=== PATIENT | male | born 1945 | race American Indian/Alaskan Native ===

== ENCOUNTER 2022-06-08 17:18 | Inpatient (IN) | payer MEDICARE ==
[2022-06-08] MEDS ORDERED: ALBUTEROL 2.5 MG/3 ML NEBU IH PRN (17:35)
--- NOTE | 2022-06-08 17:35 | History and Physical Report ---
History of Present Illness Chief complaint: My foot hurts History of present illness: 76 YO Male with Vascular Dementia with Behavioral Disturbance, Cerebral Atherosclerosis, Schizophrenia, DM, HTN, PVD presents to ED for evaluation. Patient reports "my foot hurts". Patient states that he has experienced pain in his left foot as well as discoloration over the past 3 weeks with persistent and worsening symptoms over the same timeframe. Patient was seen and evaluated at his vascular surgeon's office and was found to have left lower extremity ischemia. [facility] Patient transported via private vehicle to [facility] for further care and evaluation of the aforementioned symptoms. The patient was seen and evaluated in the emergency department. All lab and image studies reviewed. Patient found to have left lower extremity ischemia. Patient initiated on heparin drip. Vascular surgery team consulted. Patient admitted to [facility] due to increased risk of worsening symptoms and for medical stabilization. Patient denies fever, chills, chest pain, palpitation productive cough, skin rash and recent contact, known exposure to COVID-19. No prior admission for review. All medication listed at time of admission as reconciled. Advanced care planning conducted in ED. Past History Past Medical History: diabetes, hypertension, PVD, other (See HPI) Past Surgical History: No surgical history, Other (Reviewed) Social history: single. denies: smoking, alcohol abuse, prescription drug abuse Family history: hypertension Medications and Allergies Allergies Allergy/AdvReac Type Severity Reaction Status Date / Time Penicillins Allergy Intermediate Rash Verified 02/07/22 23:25 Home Medications Medication Instructions Recorded Confirmed Last Taken Type Fluvoxamine Maleate [fluvoxaMINE 50 mg PO QHS 01/09/16 01/09/16 Unknown History Maleate] Loratadine (Nf) [Claritin (Nf)] 10 mg PO DAILY 01/09/16 01/09/16 Unknown History amLODIPine 5 mg PO DAILY 01/09/16 01/09/16 Unknown History carvediloL [Coreg] 3.125 mg PO BID 01/09/16 01/09/16 Unknown History donepeziL [Aricept] 10 mg PO QHS 01/09/16 01/09/16 Unknown History lisinopriL [Zestril TAB] 20 mg PO QDAY 01/09/16 01/09/16 Unknown History risperiDONE [RisperDAL] 4 mg PO QHS 01/09/16 01/09/16 Unknown History traZODone [Desyrel] 200 mg PO QHS 01/09/16 01/09/16 Unknown History Insulin Glargine [Lantus VIAL] 15 units SUB-Q QAMDIAB #1 units 01/12/16 Unknown Rx Insulin Glulisine [Apidra] 8 units SUB-Q AC #1 units 01/12/16 Unknown Rx Review of Systems Constitutional: no weight loss, no weight gain, no fever, no chills Ears, nose, mouth and throat: no ear pain, no tinnitis, no decreased hearing, no nose pain Respiratory: no cough, no cough with sputum, no hemoptysis, no shortness of breath Gastrointestinal: no abdominal pain, no nausea, no vomiting, no constipation, no change in bowel habits Genitourinary Male: no hematuria, no flank pain, no discharge, no urinary frequency, no urinary hesitancy Rectal: no pain, no incontinence, no bleeding Musculoskeletal: no neck stiffness, no neck pain, no leg numbness/tingling Integumentary: no rash, no pruritis, no redness, no sores, no wounds Neurological: no transient paralysis, no paralysis, no weakness, no parathesias, no tingling, no seizures, no syncope, no tremors Psychiatric: no anxiety, no change in sleep habits, no insomnia, no change in appetite Endocrine: no cold intolerance, no polydipsia, no nocturia, no excessive sweating Hematologic/Lymphatic: no easy bruising, no easy bleeding Allergic/Immunologic: no allergic rhinitis, no wheezing Exam - Constitutional Vitals: Temp Pulse Resp BP Pulse Ox 98.5 F 48 L 16 152/63 100 06/08/22 17:24 06/08/22 17:24 06/08/22 17:24 06/08/22 17:24 06/08/22 17:24 General appearance: Present: mild distress - EENT Eyes: Present: PERRL ENT: hearing intact, clear oral mucosa - Neck Neck: Present: supple, normal ROM - Respiratory Respiratory effort: normal Respiratory: bilateral: CTA - Cardiovascular Heart Sounds: Present: S1 & S2. Absent: rub, click - Extremities Extremity abnormal: cold, pulses diminished Peripheral Pulses: abnormal - Abdominal General gastrointestinal: Present: soft, non-tender, non-distended, normal bowel sounds Male genitourinary: Present: normal - Integumentary Integumentary: Present: clear, dry - Musculoskeletal Musculoskeletal: gait normal, strength equal bilaterally - Psychiatric Psychiatric: cooperative - Neurologic Neurologic: CNII-XII intact, moves all extremities Results - Labs CBC & Chem 7: 06/08/22 17:59 06/08/22 17:59 Assessment and Plan - Patient Problems (1) Ischemia of left lower extremity Status: Acute Plan to address problem: CT angio with runoff, vascular surgery consulted, therapeutic anticoagulation, supportive care, serial abdominal exam, further care and evaluation as per vascular surgery team. (2) Diabetes Status: Acute Plan to address problem: Consistent carbohydrate diet, Accu-Chek, insulin protocol, hypoglycemia protocol. (3) Hypertension Status: Acute Qualifiers: Hypertension type: primary hypertension Qualified Code(s): I10 - Essential (primary) hypertension Plan to address problem: Monitor blood pressure every shift, continue medical management. (4) Schizophrenia Status: Acute Qualifiers: Schizophrenia type: unspecified Qualified Code(s): F20.9 - Schizophrenia, unspecified Plan to address problem: Continue medical management, no acute exacerbation at this time, (5) Vascular dementia with behavioral disturbance Status: Acute Plan to address problem: Verbal prompting, verbal redirection, benzodiazepine therapy as clinically indicated. (6) Cerebral atherosclerosis Status: Acute Plan to address problem: Risk factor reduction, supportive care, antiplatelet therapy as clinically indicated. (7) DVT prophylaxis Status: Acute Plan to address problem: SCD bilateral lower extremities while in bed (8) Advance care planning Status: Acute Plan to address problem: Disease education done, care plan discussed, diagnoses discussed, prognosis discussed, patient is full code. Patient and daughter acknowledged understanding and agreement with care plan, +30 minutes. (9) Preventative health care Status: Acute Plan to address problem: Patient daughter counseled regarding home safety, risk factor reduction, outpatient follow-up with primary care physician for all age and risk factor appropriate screening test. +30 minutes.
[2022-06-08] MEDS ORDERED: HEPARIN 10,000 UNITS/10 ML VIAL IV ONE (17:49)
--- NOTE | 2022-06-08 17:57 | Emergency Department Report ---
ED Extremity Problem HPI - General Chief complaint: Extremity Problem,Nontraumatic Stated complaint: Limb ischemia Time Seen by Provider: 06/08/22 17:48 Source: patient Mode of arrival: Ambulatory Limitations: No Limitations - History of Present Illness Initial comments: Patient is a 76-year-old male that presents from emergency room for left foot pain and discoloration. Patient's pain discharge has been going on for approximately 3 weeks. Patient states that his great toe pain has been going on for 4 months. Patient went to his vascular surgeon's office and was sent here for evaluation. Patient presented to the emergency room with the outpatient vascular surgery's note and the recommendations from the vascular surgery office. Patient states the pain is a moderate pain. Patient denies chest pain. Patient denies shortness of breath. Patient denies other complaints. Patient denies recent travel. Patient denies recent international travel. Patient denies exposure to the novel coronavirus. Patient denies sick contacts. Patient denies fever and chills. Patient denies cough. Patient denies diarrhea. Patient denies coming in contact with anybody with symptoms of the novel coronavirus. MD Complaint: extremity pain, cold extremity Severity scale (0 -10): 8 - Related Data Home Medications Medication Instructions Recorded Confirmed Last Taken Fluvoxamine Maleate [fluvoxaMINE 50 mg PO QHS 01/09/16 01/09/16 Unknown Maleate] Loratadine (Nf) [Claritin (Nf)] 10 mg PO DAILY 01/09/16 01/09/16 Unknown amLODIPine 5 mg PO DAILY 01/09/16 01/09/16 Unknown carvediloL [Coreg] 3.125 mg PO BID 01/09/16 01/09/16 Unknown donepeziL [Aricept] 10 mg PO QHS 01/09/16 01/09/16 Unknown lisinopriL [Zestril TAB] 20 mg PO QDAY 01/09/16 01/09/16 Unknown risperiDONE [RisperDAL] 4 mg PO QHS 01/09/16 01/09/16 Unknown traZODone [Desyrel] 200 mg PO QHS 01/09/16 01/09/16 Unknown Previous Rx's Medication Instructions Recorded Last Taken Type Insulin Glargine [Lantus VIAL] 15 units SUB-Q QAMDIAB #1 units 01/12/16 Unknown Rx Insulin Glulisine [Apidra] 8 units SUB-Q AC #1 units 01/12/16 Unknown Rx Allergies Allergy/AdvReac Type Severity Reaction Status Date / Time Penicillins Allergy Intermediate Rash Verified 02/07/22 23:25 ED Review of Systems ROS: Stated complaint: DR OREILLY Other details as noted in HPI Constitutional: denies: chills, fever Eyes: denies: eye pain, eye discharge, vision change ENT: denies: ear pain, throat pain Respiratory: denies: cough, shortness of breath, wheezing Cardiovascular: denies: chest pain, palpitations Endocrine: no symptoms reported Gastrointestinal: denies: abdominal pain, nausea, diarrhea Genitourinary: denies: urgency, dysuria Musculoskeletal: as per HPI. denies: back pain, joint swelling, arthralgia Skin: denies: rash, lesions Neurological: denies: headache, weakness, paresthesias Psychiatric: denies: anxiety, depression Hematological/Lymphatic: denies: easy bleeding, easy bruising ED Past Medical Hx - Past Medical History Previous Medical History?: Yes Hx Hypertension: Yes Hx Heart Attack/AMI: No Hx Congestive Heart Failure: No Hx Diabetes: Yes Hx Deep Vein Thrombosis: No Hx Pulmonary Embolism: No Hx Liver Disease: No Hx Seizures: No Hx Psychiatric Treatment: Yes (schizophrenia) Hx Asthma: No Hx COPD: No Hx Tuberculosis: No Hx Dementia: Yes Hx HIV: No - Surgical History Past Surgical History?: No Hx Coronary Stent: No Hx Pacemaker: No Hx Internal Defibrillator: No - Family History Family history: no significant - Social History Smoking Status: Former Smoker Substance Use Type: None - Medications Home Medications: Home Medications Medication Instructions Recorded Confirmed Last Taken Type Fluvoxamine Maleate [fluvoxaMINE 50 mg PO QHS 01/09/16 01/09/16 Unknown History Maleate] Loratadine (Nf) [Claritin (Nf)] 10 mg PO DAILY 01/09/16 01/09/16 Unknown History amLODIPine 5 mg PO DAILY 01/09/16 01/09/16 Unknown History carvediloL [Coreg] 3.125 mg PO BID 01/09/16 01/09/16 Unknown History donepeziL [Aricept] 10 mg PO QHS 01/09/16 01/09/16 Unknown History lisinopriL [Zestril TAB] 20 mg PO QDAY 01/09/16 01/09/16 Unknown History risperiDONE [RisperDAL] 4 mg PO QHS 01/09/16 01/09/16 Unknown History traZODone [Desyrel] 200 mg PO QHS 01/09/16 01/09/16 Unknown History Insulin Glargine [Lantus VIAL] 15 units SUB-Q QAMDIAB #1 units 01/12/16 Unknown Rx Insulin Glulisine [Apidra] 8 units SUB-Q AC #1 units 01/12/16 Unknown Rx ED Physical Exam - General Limitations: No Limitations General appearance: alert, in no apparent distress - Head Head exam: Present: atraumatic, normocephalic - Eye Eye exam: Present: normal appearance - ENT ENT exam: Present: mucous membranes moist - Neck Neck exam: Present: normal inspection - Respiratory Respiratory exam: Present: normal lung sounds bilaterally. Absent: respiratory distress - Cardiovascular Cardiovascular Exam: Present: regular rate, normal rhythm. Absent: systolic murmur, diastolic murmur, rubs, gallop - GI/Abdominal GI/Abdominal exam: Present: soft, normal bowel sounds. Absent: distended, tenderness, guarding - Rectal Rectal exam: Present: deferred - Extremities Exam Extremities exam: Present: full ROM, pedal edema, calf tenderness, other (Left lower extremity is cool compared to the right.). Absent: normal capillary refill - Back Exam Back exam: Present: normal inspection - Neurological Exam Neurological exam: Present: alert, oriented X3 - Psychiatric Psychiatric exam: Present: normal affect, normal mood - Skin Skin exam: Present: warm, dry, intact, normal color. Absent: rash ED Course Vital Signs 06/08/22 06/08/22 17:24 17:52 Temperature 98.5 F 98.3 F Pulse Rate 48 L 46 L Respiratory 16 18 Rate Blood Pressure 168/70 Blood Pressure 152/63 168/70 [Left] O2 Sat by Pulse 100 100 Oximetry - Reevaluation(s) Reevaluation #1: Patient be started on a heparin drip once the labs are done. I instructed the nurse. Patient agrees with plan of care. 06/08/22 18:10 Reevaluation #2: Patient denies any changes in pain. 06/08/22 19:50 Reevaluation #3: I discussed all results with patient. I discussed plan of care with patient. Patient agrees with plan of care and admission. Patient to be admitted to the hospitalist service. 06/08/22 19:17 - Consultations Consultation #1: I discussed the case with Dr. Escamilla, vascular surgery. Dr. Escamilla states that the patient has a complete occlusion of the left lower extremity. Dr. Escamilla states he did ultrasound in the office. Dr. Escamilla states he wants the patient be placed on a heparin drip with a bolus. Dr. Escamilla states that he would like to have a CTA of the abdomen with runoff done. Dr. Escamilla states he wants the patient admitted to the hospitalist service and a consult placed for them. 06/08/22 17:54 Consultation #2: Hospitalist consulted for admission. Hospitalist to admit patient. 06/08/22 19:19 ED Medical Decision Making - Lab Data Result diagrams: 06/08/22 17:59 06/08/22 17:59 - Radiology Data Radiology results: report reviewed CTA ABDOMEN, PELVIS, AND LOWER EXTREMITIES INDICATION / CLINICAL INFORMATION: left limb ischemia and pad. cluadication. TECHNIQUE: Axial CT images were obtained through the abdomen, pelvis and lower extremities after injection of 100 cc Omni 350 IV contrast. 3 plane MIP / 3D reconstructions were produced. All CT scans at this location are performed using CT dose reduction for ALARA by means of automated exposure control. COMPARISON: None available. FINDINGS: CTA ABDOMEN: Abdominal Aorta: Tortuous with moderate vascular calcifications. Celiac Artery: No significant abnormality. Superior Mesenteric Artery: No significant abnormality. Right Renal Artery: No significant abnormality. Left Renal Artery: No significant abnormality. Inferior Mesenteric Artery: No significant abnormality. CTA PELVIS: RIGHT: - Common Iliac Artery: No significant abnormality. - Internal Iliac Artery: No significant abnormality. - External Iliac Artery: No significant abnormality. LEFT: - Common Iliac Artery: No significant abnormality. - Internal Iliac Artery: No significant abnormality. - External Iliac Artery: No significant abnormality. CTA LOWER EXTREMITIES: RIGHT LOWER EXTREMITY: - Common Femoral Artery: No significant abnormality. - Superficial Femoral Artery: No significant abnormality. - Profunda Femoral Artery: No significant abnormality. - Popliteal Artery: No significant abnormality. - Anterior Tibial Artery: Occluded proximal and mid calf with distal reconstitution via collaterals - Tibioperoneal Trunk: No significant abnormality. - Posterior Tibial Artery: Occluded - Peroneal Artery: No significant abnormality. - Ankle runoff: 2 vessel. LEFT LOWER EXTREMITY: - Common Femoral Artery: No significant abnormality. - Superficial Femoral Artery: Occluded/thrombosed within the mid and distal portion of the femoral artery. - Profunda Femoral Artery: No significant abnormality. - Popliteal Artery: Occluded/thrombosed - Anterior Tibial Artery: Occluded proximal and middle third of the foreleg with distal reconstitution via collaterals - Tibioperoneal Trunk: Occluded - Posterior Tibial Artery: Occluded throughout its course - Peroneal Artery: No significant abnormality. - Ankle runoff: 2 vessel. NONTARGET STRUCTURES:. Solid 5 mm right upper lobe pulmonary nodule series 2 image 1 CHEST: Partially calcified bilateral pleural plaques ABDOMEN:Nonobstructing 8 mm intrarenal stone. PELVIS:No significant abnormality. LOWER EXTREMITIES:No significant abnormality. SKELETAL: No significant abnormality. ADDITIONAL FINDINGS: None. IMPRESSION: 1. Occluded left femoral, popliteal, tibiofemoral trunk likely from embolic dis ease. Two-vessel runoffs bilaterally 2. 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 Single incidental pulmonary nodule(s) in the right upper lobe measuring 5 mm with solid characteristics. Recommendation according to Fleischner Society 2017 Guidelines: Low Risk Patient: No routine follow-up; High Risk Patient: Optional CT at 12 months. 4. Right nephrolithiasis. - Medical Decision Making Patient is a 76-year-old male that presents emergency room from his vascular surgeon's office for evaluation and admission. Patient was sent here for heparin drip admission to our internal medicine team. I discussed with the vascular surgeon early in the patient's ER stay. Dr. Werner, vascular surgery recommends heparin drip with bolus and a CTA of the abdomen with runoff. Labs done labs essentially markable except for acute renal failure and hyperkalemia. Patient had a CT angio of the abdomen with runoff showed multiple occlusions in the lower extremity. Patient started on a heparin drip early. Patient also given heparin bolus. Heparin started per heparin protocol. Patient admitted to the hospitalist service for further evaluation treatment. Critical care time documented due to the multiple reassessments, prolonged time at the bedside, interpretation of diagnostics and labs and discussion with consultants and admitting team.. - Differential Diagnosis Arterial occlusion, limb ischemia, foot pain, leg pain. Critical Care Time: Yes Critical care time in (mins) excluding proc time.: 35 Critical care attestation.: If time is entered above; I have spent that time in minutes in the direct care of this critically ill patient, excluding procedure time. Critical Care Time: 35 minutes ED Disposition Clinical Impression: Ischemia of left lower extremity, Hyperkalemia, Arterial occlusion, lower extremity Acute renal failure Qualifiers: Acute renal failure type: unspecified Qualified Code(s): N17.9 - Acute kidney failure, unspecified Foot pain Qualifiers: Laterality: left Qualified Code(s): M79.672 - Pain in left foot Disposition: 09 ADMITTED INPATIENT Is pt being admited?: Yes Does the pt Need Aspirin: No Condition: Critical Time of Disposition: 19:19
[2022-06-08 18:09] LABS: Hematocrit 42.5 % (35.5-45.6); Hemoglobin 14.3 gm/dl (11.8-15.2); Mean Corpuscular HGB Conc 34 % (32-34); Mean Corpuscular Volume 91 fl (84-94); Platelet Count 208 K/mm3 (140-440); Red Blood Count 4.66 M/mm3 (3.65-5.03); Red Cell Distribution Width 14.3 % (13.2-15.2)
[2022-06-08 18:32] LABS: Albumin 4.5 g/dL (3.9-5); Calcium 9.9 mg/dL (8.4-10.2)
[2022-06-08] MEDS: HEPARIN/ 0.45% NACL DRIP 25,000 UNIT/500 ML BAG IV SCH (18:36)
[2022-06-08 18:41] LABS: INR 1.02 (0.87-1.13)
[2022-06-08 18:42] LABS: Partial Thromboplastin Time 35.1 Sec. (24.2-36.6)
--- NOTE | 2022-06-08 19:53 | Cat Scan Report ---
CTA ABDOMEN, PELVIS, AND LOWER EXTREMITIES INDICATION / CLINICAL INFORMATION: left limb ischemia and pad. cluadication. TECHNIQUE: Axial CT images were obtained through the abdomen, pelvis and lower extremities after injection of 10 0 cc Omni 350 IV contrast. 3 plane MIP / 3D reconstructions were produced. All CT scans at this [facility] ion are performed using CT dose reduction for ALARA by means of automated exposure control. COMPARISON: None available. FINDINGS: CTA ABDOMEN: Abdominal Aorta: Tortuous with moderate vascular calcifications. Celiac Artery: No significant abnormality. Superior Mesenteric Artery: No significant abnormality. Right Renal Artery: No significant abnormality. Left Renal Artery: No significant abnormality. Inferior Mesenteric Artery: No significant abnormality. CTA PELVIS: RIGHT: - Common Iliac Artery: No significant abnormality. - Internal Iliac Artery: No significant abnormality. - External Iliac Artery: No significant abnormality. LEFT: - Common Iliac Artery: No significant abnormality. - Internal Iliac Artery: No significant abnormality. - External Iliac Artery: No significant abnormality. CTA LOWER EXTREMITIES: RIGHT LOWER EXTREMITY: - Common Femoral Artery: No significant abnormality. - Superficial Femoral Artery: No significant abnormality. - Profunda Femoral Artery: No significant abnormality. - Popliteal Artery: No significant abnormality. - Anterior Tibial Artery: Occluded proximal and mid calf with distal reconstitution via collaterals - Tibioperoneal Trunk: No significant abnormality. - Posterior Tibial Artery: Occluded - Peroneal Artery: No significant abnormality. - Ankle runoff: 2 vessel. LEFT LOWER EXTREMITY: - Common Femoral Artery: No significant abnormality. - Superficial Femoral Artery: Occluded/thrombosed within the mid and distal portion of the femoral ar chauncey. - Profunda Femoral Artery: No significant abnormality. - Popliteal Artery: Occluded/thrombosed - Anterior Tibial Artery: Occluded proximal and middle third of the foreleg with distal reconstitutio n via collaterals - Tibioperoneal Trunk: Occluded - Posterior Tibial Artery: Occluded throughout its course - Peroneal Artery: No significant abnormality. - Ankle runoff: 2 vessel. NONTARGET STRUCTURES:. Solid 5 mm right upper lobe pulmonary nodule series 2 image 1 CHEST: Partially calcified bilateral pleural plaques ABDOMEN:Nonobstructing 8 mm intrarenal stone. PELVIS:No significant abnormality. LOWER EXTREMITIES:No significant abnormality. SKELETAL: No significant abnormality. ADDITIONAL FINDINGS: None. IMPRESSION: 1. Occluded left femoral, popliteal, tibiofemoral trunk likely from embolic disease. Two-vessel runof fs bilaterally 2. 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 Single incidental pulmonary nodule(s) in the right upper lobe measuring 5 mm with solid characteri stics. Recommendation according to Fleischner Society 2017 Guidelines: Low Risk Patient: No routine f ollow-up; High Risk Patient: Optional CT at 12 months. 4. Right nephrolithiasis. Signer Name: Tomer Kent MD Signed: 06/08/2022 7:49 PM Workstation Name: [id number]
[2022-06-08] MEDS: risperiDONE 1 MG TAB PO SCH (22:00)
[2022-06-08] MEDS: DONEPEZIL 10 MG TAB PO SCH (22:00)
[2022-06-08] MEDS: traZODone 100 MG TAB PO SCH (22:00)
[2022-06-08] MEDS ORDERED: RISPERIDONE 4 MG PO SCH (22:00)
[2022-06-08] MEDS ORDERED: FLUVOXAMINE MALEATE 25 MG PO SCH (22:00)
[2022-06-08] MEDS: carvediloL 3.125 MG TAB PO SCH (22:00)
[2022-06-09 02:39] LABS: Eosinophils # (Auto) 0.1 K/mm3 (0.0-0.4); Eosinophils % (Auto) 1.7 % (0.0-4.3); Hematocrit 43.2 % (35.5-45.6); Hemoglobin 14.1 gm/dl (11.8-15.2); Lymphocytes # (Auto) 1.7 K/mm3 (1.2-5.4); Lymphocytes % (Auto) 38.3 % (13.4-35.0); Mean Corpuscular HGB Conc 33 % (32-34); Mean Corpuscular Volume 92 fl (84-94); Monocytes # (Auto) 0.4 K/mm3 (0.0-0.8); Monocytes % (Auto) 9.9 % (0.0-7.3); Platelet Count 193 K/mm3 (140-440); Red Cell Distribution Width 14.7 % (13.2-15.2)
[2022-06-09 02:56] LABS: BUN/Creatinine Ratio 19; Blood Urea Nitrogen 25 mg/dL (9-20); Calcium 9.6 mg/dL (8.4-10.2); Hemolysis Index 3
[2022-06-09] MEDS ORDERED: HEPARIN 10,000 UNITS/10 ML VIAL IV PRN (08:32)
[2022-06-09] MEDS ORDERED: NON-FORMULARY EACH (Loratadine (Nf) 10 MG Tablet) PO SCH (10:00)
--- NOTE | 2022-06-09 10:11 | Consultation ---
History of Present Illness - Reason for Consult Consult date: 06/09/22 PVD with arterial occlusion - History of Present Illness Patient with a history of 3 weeks of leg pain, decreased motor and sensation on the left who ultimately presented to outpatient clinic with the above findings. Ultrasound was performed in the outpatient setting and the patient was noted to have occlusion of his SFA and the proximal thigh. Patient was sent to the hospital emergency department for admission and initiation of anticoagulation. Patient ambulates at home. Patient states that his symptoms are the same today as on presentation. Patient's left leg is warm to mid to distal calf and slightly cool compared to the opposite side on distal calf and foot. Past History Past Medical History: diabetes, hypertension, PVD, other (See HPI) Past Surgical History: No surgical history, Other (Reviewed) Social history: single. denies: smoking, alcohol abuse, prescription drug abuse Family history: hypertension Medications and Allergies Allergies Allergy/AdvReac Type Severity Reaction Status Date / Time Penicillins Allergy Intermediate Rash Verified 02/07/22 23:25 Home Medications Medication Instructions Recorded Confirmed Last Taken Type Fluvoxamine Maleate [fluvoxaMINE 50 mg PO QHS 01/09/16 01/09/16 Unknown History Maleate] Loratadine (Nf) [Claritin (Nf)] 10 mg PO DAILY 01/09/16 01/09/16 Unknown History amLODIPine 5 mg PO DAILY 01/09/16 01/09/16 Unknown History carvediloL [Coreg] 3.125 mg PO BID 01/09/16 01/09/16 Unknown History donepeziL [Aricept] 10 mg PO QHS 01/09/16 01/09/16 Unknown History lisinopriL [Zestril TAB] 20 mg PO QDAY 01/09/16 01/09/16 Unknown History risperiDONE [RisperDAL] 4 mg PO QHS 01/09/16 01/09/16 Unknown History traZODone [Desyrel] 200 mg PO QHS 01/09/16 01/09/16 Unknown History Insulin Glargine [Lantus VIAL] 15 units SUB-Q QAMDIAB #1 units 01/12/16 Unknown Rx Insulin Glulisine [Apidra] 8 units SUB-Q AC #1 units 01/12/16 Unknown Rx Active Meds: Active Medications Acetaminophen (Acetaminophen 325 Mg Tab) 650 mg PO Q6H PRN PRN Reason: Pain MILD(1-3)/Fever >100.5/PACHECO Albuterol (Albuterol 2.5 Mg/3 Ml Nebu) 2.5 mg IH Q3HRT PRN PRN Reason: Shortness Of Breath Amlodipine Besylate (Amlodipine 5 Mg Tab) 5 mg PO DAILY [facility] Carvedilol (Carvedilol 3.125 Mg Tab) 3.125 mg PO BID [facility] Last Admin: 06/08/22 22:00 Dose: 3.125 mg Cetirizine HCl (Cetirizine 10 Mg Tab) 10 mg PO DAILY [facility] Donepezil HCl (Donepezil 10 Mg Tab) 10 mg PO QHS [facility] Last Admin: 06/08/22 22:00 Dose: 10 mg Heparin Sodium (Porcine) (Heparin 10,000 Units/10 Ml Vial) 2,900 unit 40 unit/kg (2900 unit) IV Q6H PRN PRN Reason: Anti-Xa Assay < 0.1 units/ml Hydromorphone HCl (Hydromorphone 0.5 Mg/0.5 Ml Inj) 0.5 mg IV Q6H PRN PRN Reason: Pain , Severe (7-10) Sodium Chloride (Nacl 0.9% 1000 Ml) 1,000 mls @ 42 mls/hr IV DIRECT [facility] Heparin Sodium/Sodium Chloride (Heparin/ 0.45% Nacl-25,000 Unit/500 Ml) 25,000 unit in 500 mls @ 21 mls/hr IV TITR [facility]; Protocol Last Titration: 06/09/22 05:57 Dose: 1,200 units/hr, 24 mls/hr Lisinopril (Lisinopril 20 Mg Tab) 20 mg PO QDAY [facility] Miscellaneous Medication (Fluvoxamine Maleate [Fluvoxamine Maleate]) 50 mg PO QHS [facility] Last Admin: 06/09/22 06:16 Dose: Not Given Oxycodone/Acetaminophen (Oxycodone /Acetaminophen 5-325mg Tab) 1 tab PO Q6H PRN PRN Reason: Pain, Moderate (4-6) Risperidone (Risperidone 1 Mg Tab) 4 mg PO QHS [facility] Last Admin: 06/08/22 22:00 Dose: 4 mg Sodium Chloride (Sodium Chloride 0.9% 10 Ml Flush Syringe) 10 ml IV BID [facility] Last Admin: 06/09/22 06:17 Dose: 10 ml Sodium Chloride (Sodium Chloride 0.9% 10 Ml Flush Syringe) 10 ml IV PRN PRN PRN Reason: LINE FLUSH Trazodone HCl (Trazodone 100 Mg Tab) 200 mg PO QHS [facility] Last Admin: 06/08/22 22:00 Dose: 200 mg Review of Systems All systems: negative Exam - Constitutional Vitals: Temp Pulse Resp BP Pulse Ox 98.3 F 42 L 16 145/79 99 06/08/22 17:52 06/09/22 07:11 06/09/22 07:11 06/09/22 07:11 06/09/22 07:11 General appearance: Present: no acute distress - EENT Eyes: Present: EOM intact ENT: hearing intact - Neck Neck: Present: supple - Respiratory Respiratory effort: normal - Extremities Extremity abnormal: pulses diminished (Nonpalpable left pedal pulses) - Abdominal General gastrointestinal: Present: deferred - Rectal Rectal Exam: deferred - Psychiatric Psychiatric: cooperative Results - Labs CBC & Chem 7: 06/09/22 02:16 06/09/22 02:16 Labs: Abnormal lab results 06/08/22 06/08/22 06/09/22 Range/Units 17:59 17:59 00:37 WBC 4.3 L (4.5-11.0) K/mm3 Lymph % (Auto) (13.4-35.0) % [place] % (Auto) (0.0-7.3) % Heparin Anti-Xa Level 0.10 L (0.3-0.7) U.I./ml Potassium 5.1 H (3.6-5.0) mmol/L BUN 29 H (9-20) mg/dL Creatinine 1.6 H (0.8-1.3) mg/dL Glucose 159 H (75-100) mg/dL 06/09/22 06/09/22 Range/Units 02:16 02:16 WBC 4.4 L (4.5-11.0) K/mm3 Lymph % (Auto) 38.3 H (13.4-35.0) % [place] % (Auto) 9.9 H (0.0-7.3) % Heparin Anti-Xa Level (0.3-0.7) U.I./ml Potassium (3.6-5.0) mmol/L BUN 25 H (9-20) mg/dL Creatinine (0.8-1.3) mg/dL Glucose 135 H (75-100) mg/dL - Imaging and Cardiology CT scan - abdomen: image reviewed (Runoff) CT scan - pelvis: image reviewed Assessment and Plan Patient with subacute occlusion of his mid to distal SFA. There is reconstitution and collateral flow below the knee. The peroneal appears to be intact in the mid calf and distally. On the right, the patient has peroneal dominant flow as well. The patient will need to continue on heparin. We will plan on revascularization procedure likely on Saturday.
[2022-06-09] MEDS: LISINOPRIL 20 MG TAB PO SCH (10:57)
[2022-06-09] MEDS: amLODIPine 5 MG TAB PO SCH (10:57)
[2022-06-09] MEDS: carvediloL 3.125 MG TAB PO SCH (10:58)
[2022-06-09] MEDS: CETIRIZINE 10 MG TAB PO SCH (10:58)
[2022-06-09 11:02] LABS: INR 1.05 (0.87-1.13)
[2022-06-09 11:26] LABS: Partial Thromboplastin Time 138.6 Sec. (24.2-36.6)
--- NOTE | 2022-06-09 11:44 | Progress Note ---
<VIKKI NGUYEN - Last Filed: 06/09/22 16:37> Assessment and Plan Assessment and plan: This is a 77-year-old male with known past medical history of vascular dementia with behavioral disturbance, schizophrenia, cerebral atherosclerosis, DM, HTN, and PVD admitted for LLE ischemia Hospital Course to Date: 06/09: Remains on heaprin gtt per protocol. Vascular Surgery recommendations noted, plan for possible revascularization procedure likely on Saturday. Patient also noted with SB, HR in the 30s. Home BB held, cardiology also consulted for further eval and clearance for possible vascular procedure. Assessment and Plan #Peripheral Vascular Disease(PVD) #Ischemia of Left Lower Extremity #Subacute Occlusion of SFA - Presented from from vascular surgery's office due to [id number] leg pain with discoloration - CTA reveals occluded left femoral, popliteal, tibiofemoral trunk likely from embolic disease. See report for full details - Heaprin gtt was initiated per protocol - Vascular Surgery consulted, appreciated recommendations - Plan for possible revascularization procedure likely on Saturday - Continue vascular exam per protocol #Bradycardia #Hypertension - SB, HR in the 30s on the monitor this am, BP stable - Home antihypertensive resumed. Will hold BB for now - Cardiology consulted - Continue blood pressure monitor per protocol - Maintain MAP SBP less than 160 #Single Pulmonary Nodule - Noted on CTA, single incidental pulmonary nodule(s) in the right upper lobe measuring 5 mm with solid characteristics. - Follow up outpatient for further eval #Type 2 Diabetes Mellitus - Consistent carbohydrate diet - BG check and SSI ACHS - Avoid hypoglcemia #Vascular Dementia with Behavioral Disturbance #Schizophrenia - Currently calm and appropriate - Continue medical management, home meds resumed - Verbal prompting, verbal redirection - Avoid benzodiazepine to reduce the possibility of delirium - Maintenance of sleep-wake cycle #Cerebral Atherosclerosis - Risk factor reduction, supportive care, antiplatelet therapy as clinically indicated. #GI/DVT Prophylaxis - PPI- Pepcid - Heparin gtt - SCD bilateral lower extremities while in bed The high probability of a clinically significant, sudden or life threatening deterioration of the [multiple] system(s) required my full and direct attention, intervention and personal management. The aggregate critical care time was [60] minutes. This time is in addition to time spent performing reported procedures but includes the following: [x] Data Review and interpretation [x] Patient assessment and monitoring of vital signs [x] Documentation [x] Medication orders and management Disposition Plan: IMCU Total Time Spent with Patient (Minutes): 60 History Interval history: Patient seen and examined at the bedside. AAO with periods of disorientation, stable on RA. C/o LLE pain/soreness. Upon assessment, patient's left foot is audience coordinator l to touch, weak pedal pulse palpated. On heparin gtt per protocol. SB heart in the 30s noted on the monitor this am, BP stable. Hospitalist Physical - Constitutional Vitals: Temp Pulse Resp BP Pulse Ox 98.3 F 50 L 16 149/53 99 06/08/22 17:52 06/09/22 10:58 06/09/22 07:11 06/09/22 10:58 06/09/22 07:11 General appearance: Present: no acute distress, well-nourished - EENT Eyes: Present: PERRL, EOM intact ENT: hearing intact, poor dentition - Neck Neck: Present: normal ROM - Respiratory Respiratory effort: normal Respiratory: bilateral: diminished - Cardiovascular Rhythm: regular Heart Sounds: Present: S1 & S2 - Extremities Extremities: No edema, Full ROM, abnormal (LLE cool to touch with weak pedal pulse.) Extremity abnormal: pulses diminished (LLE) Peripheral Pulses: abnormal (Weak pedal pulse, LLE) - Abdominal General gastrointestinal: soft, non-distended, normal bowel sounds - Integumentary Integumentary: Present: clear, dry, decreased turgor - Psychiatric Psychiatric: appropriate mood/affect, cooperative - Neurologic Neurologic: CNII-XII intact, moves all extremities, other (Periods of d isorientation) - Allied Health Allied health notes reviewed: nursing Results - Labs CBC & Chem 7: 06/09/22 02:16 06/09/22 02:16 Labs: Laboratory Last Values WBC 4.4 K/mm3 (4.5-11.0) L 06/09/22 02:16 RBC 4.70 M/mm3 (3.65-5.03) 06/09/22 02:16 Hgb 14.1 gm/dl (11.8-15.2) 06/09/22 02:16 Hct 43.2 % (35.5-45.6) 06/09/22 02:16 MCV 92 fl (84-94) 06/09/22 02:16 MCH 30 pg (28-32) 06/09/22 02:16 MCHC 33 % (32-34) 06/09/22 02:16 RDW 14.7 % (13.2-15.2) 06/09/22 02:16 Plt Count 193 K/mm3 (140-440) 06/09/22 02:16 Lymph % (Auto) 38.3 % (13.4-35.0) H 06/09/22 02:16 [place] % (Auto) 9.9 % (0.0-7.3) H 06/09/22 02:16 Eos % (Auto) 1.7 % (0.0-4.3) 06/09/22 02:16 Baso % (Auto) 1.0 % (0.0-1.8) 06/09/22 02:16 Lymph # (Auto) 1.7 K/mm3 (1.2-5.4) 06/09/22 02:16 [place] # (Auto) 0.4 K/mm3 (0.0-0.8) 06/09/22 02:16 Eos # (Auto) 0.1 K/mm3 (0.0-0.4) 06/09/22 02:16 Baso # (Auto) 0.0 K/mm3 (0.0-0.1) 06/09/22 02:16 Seg Neutrophils % 49.1 % (40.0-70.0) 06/09/22 02:16 Seg Neutrophils # 2.2 K/mm3 (1.8-7.7) 06/09/22 02:16 PT 14.9 Sec. (12.2-14.9) 06/09/22 10:21 INR 1.05 (0.87-1.13) 06/09/22 10:21 APTT 138.6 Sec. (24.2-36.6) H* 06/09/22 10:21 Heparin Anti-Xa Level 0.80 U.I./ml (0.3-0.7) H 06/09/22 10:21 Sodium 139 mmol/L (137-145) 06/09/22 02:16 Potassium 4.4 mmol/L (3.6-5.0) 06/09/22 02:16 Chloride 101.7 mmol/L (98-107) 06/09/22 02:16 Carbon Dioxide 23 mmol/L (22-30) 06/09/22 02:16 Anion Gap 19 mmol/L 06/09/22 02:16 BUN 25 mg/dL (9-20) H 06/09/22 02:16 Creatinine 1.3 mg/dL (0.8-1.3) 06/09/22 02:16 Estimated GFR > 60 ml/min 06/09/22 02:16 BUN/Creatinine Ratio 19 % 06/09/22 02:16 Glucose 135 mg/dL (75-100) H 06/09/22 02:16 Calcium 9.6 mg/dL (8.4-10.2) 06/09/22 02:16 Total Bilirubin 0.40 mg/dL (0.1-1.2) 06/08/22 17:59 AST 17 units/L (5-40) 06/08/22 17:59 ALT 18 units/L (7-56) 06/08/22 17:59 Alkaline Phosphatase 77 units/L (35-129) 06/08/22 17:59 Total Protein 7.8 g/dL (6.3-8.2) 06/08/22 17:59 Albumin 4.5 g/dL (3.9-5) 06/08/22 17:59 Albumin/Globulin Ratio 1.4 % 06/08/22 17:59 Active Medications - Current Medications Current Medications: Generic Name Dose Route Start Last Admin Trade Name Freq PRN Reason Stop Dose Admin Acetaminophen 650 mg 06/08/22 17:35 Acetaminophen 325 Mg Tab PO Q6H PRN Pain MILD(1-3)/Fever >100.5/PACHECO Albuterol 2.5 mg 06/08/22 17:35 Albuterol 2.5 Mg/3 Ml Nebu IH Q3HRT PRN Shortness Of Breath Amlodipine Besylate 5 mg 06/09/22 10:00 06/09/22 10:57 Amlodipine 5 Mg Tab PO 5 mg DAILY [facility] Administration Carvedilol 3.125 mg 06/08/22 22:00 06/09/22 10:58 Carvedilol 3.125 Mg Tab PO 3.125 mg BID [facility] Administration Cetirizine HCl 10 mg 06/09/22 10:00 06/09/22 10:58 Cetirizine 10 Mg Tab PO 10 mg DAILY [facility] Administration Donepezil HCl 10 mg 06/08/22 22:00 06/08/22 22:00 Donepezil 10 Mg Tab PO 10 mg QHS [facility] Administration Heparin Sodium (Porcine) 2,900 unit 06/09/22 08:32 Heparin 10,000 Units/10 Ml Vial 40 unit/kg (2900 unit) IV Q6H PRN Anti-Xa Assay < 0.1 units/ml Hydromorphone HCl 0.5 mg 06/08/22 17:35 Hydromorphone 0.5 Mg/0.5 Ml Inj IV Q6H PRN Pain , Severe (7-10) Sodium Chloride 1,000 mls @ 42 mls/hr 06/08/22 17:45 Nacl 0.9% 1000 Ml IV DIRECT [facility] Heparin Sodium/Sodium Chloride 25,000 unit in 500 mls @ 21 mls/hr 06/08/22 18:00 06/09/22 05:57 Heparin/ 0.45% Nacl-25,000 Unit/500 Ml IV 1,200 units/hr TITR [facility] 24 mls/hr Titration Protocol 1,050 UNITS/HR Lisinopril 20 mg 06/09/22 10:00 06/09/22 10:57 Lisinopril 20 Mg Tab PO 20 mg QDAY [facility] Administration Miscellaneous Medication 50 mg 06/08/22 22:00 06/09/22 06:16 Fluvoxamine Maleate [Fluvoxamine Maleate] PO Not Given QHS [facility] Oxycodone/Acetaminophen 1 tab 06/08/22 17:35 Oxycodone /Acetaminophen 5-325mg Tab PO Q6H PRN Pain, Moderate (4-6) Risperidone 4 mg 06/08/22 22:00 06/08/22 22:00 Risperidone 1 Mg Tab PO 4 mg QHS [facility] Administration Sodium Chloride 10 ml 06/08/22 22:00 06/09/22 10:57 Sodium Chloride 0.9% 10 Ml Flush Syringe IV 10 ml BID [facility] Administration Sodium Chloride 10 ml 06/08/22 17:35 Sodium Chloride 0.9% 10 Ml Flush Syringe IV PRN PRN LINE FLUSH Trazodone HCl 200 mg 06/08/22 22:00 06/08/22 22:00 Trazodone 100 Mg Tab PO 200 mg QHS [facility] Administration <SANTOS COBURN - Last Filed: 06/10/22 07:11> Assessment and Plan Assessment and plan: I saw and evaluated the patient. I agree with the findings and the plan of care as documented in the Nurse Practitioner's~note, with the following corrections and additions. Hospitalist Physical - Constitutional Vitals: Temp Pulse Resp BP Pulse Ox 97.8 F 37 L 9 L 140/47 99 06/09/22 23:10 06/10/22 06:01 06/10/22 06:01 06/10/22 06:01 06/10/22 06:01 Results - Labs CBC & Chem 7: 06/10/22 05:18 06/10/22 05:18 Labs: Laboratory Last Values WBC 4.7 K/mm3 (4.5-11.0) 06/10/22 05:18 RBC 4.55 M/mm3 (3.65-5.03) 06/10/22 05:18 Hgb 13.6 gm/dl (11.8-15.2) 06/10/22 05:18 Hct 41.9 % (35.5-45.6) 06/10/22 05:18 MCV 92 fl (84-94) 06/10/22 05:18 MCH 30 pg (28-32) 06/10/22 05:18 MCHC 33 % (32-34) 06/10/22 05:18 RDW 14.5 % (13.2-15.2) 06/10/22 05:18 Plt Count 167 K/mm3 (140-440) 06/10/22 05:18 Lymph % (Auto) 38.3 % (13.4-35.0) H 06/09/22 02:16 [place] % (Auto) 9.9 % (0.0-7.3) H 06/09/22 02:16 Eos % (Auto) 1.7 % (0.0-4.3) 06/09/22 02:16 Baso % (Auto) 1.0 % (0.0-1.8) 06/09/22 02:16 Lymph # (Auto) 1.7 K/mm3 (1.2-5.4) 06/09/22 02:16 [place] # (Auto) 0.4 K/mm3 (0.0-0.8) 06/09/22 02:16 Eos # (Auto) 0.1 K/mm3 (0.0-0.4) 06/09/22 02:16 Baso # (Auto) 0.0 K/mm3 (0.0-0.1) 06/09/22 02:16 Seg Neutrophils % 49.1 % (40.0-70.0) 06/09/22 02:16 Seg Neutrophils # 2.2 K/mm3 (1.8-7.7) 06/09/22 02:16 PT 14.9 Sec. (12.2-14.9) 06/09/22 10:21 INR 1.05 (0.87-1.13) 06/09/22 10:21 APTT 138.6 Sec. (24.2-36.6) H* 06/09/22 10:21 Heparin Anti-Xa Level 0.82 U.I./ml (0.3-0.7) H 06/10/22 05:18 Sodium 134 mmol/L (137-145) L 06/10/22 05:18 Potassium 4.6 mmol/L (3.6-5.0) 06/10/22 05:18 Chloride 101.6 mmol/L (98-107) 06/10/22 05:18 Carbon Dioxide 24 mmol/L (22-30) 06/10/22 05:18 Anion Gap 13 mmol/L 06/10/22 05:18 BUN 25 mg/dL (9-20) H 06/10/22 05:18 Creatinine 1.4 mg/dL (0.8-1.3) H 06/10/22 05:18 Estimated GFR 59 ml/min 06/10/22 05:18 BUN/Creatinine Ratio 18 % 06/10/22 05:18 Glucose 227 mg/dL (75-100) H 06/10/22 05:18 POC Glucose 218 mg/dL (70-105) H 06/09/22 20:38 Calcium 9.0 mg/dL (8.4-10.2) 06/10/22 05:18 Total Bilirubin 0.40 mg/dL (0.1-1.2) 06/08/22 17:59 AST 17 units/L (5-40) 06/08/22 17:59 ALT 18 units/L (7-56) 06/08/22 17:59 Alkaline Phosphatase 77 units/L (35-129) 06/08/22 17:59 Total Protein 7.8 g/dL (6.3-8.2) 06/08/22 17:59 Albumin 4.5 g/dL (3.9-5) 06/08/22 17:59 Albumin/Globulin Ratio 1.4 % 06/08/22 17:59 Khalil/IV: Voiding Method Urinal Active Medications - Current Medications Current Medications: Generic Name Dose Route Start Last Admin Trade Name Freq PRN Reason Stop Dose Admin Acetaminophen 650 mg 06/08/22 17:35 06/09/22 20:46 Acetaminophen 325 Mg Tab PO 650 mg Q6H PRN Administration Pain MILD(1-3)/Fever >100.5/PACHECO Albuterol 2.5 mg 06/08/22 17:35 Albuterol 2.5 Mg/3 Ml Nebu IH Q3HRT PRN Shortness Of Breath Amlodipine Besylate 5 mg 06/09/22 10:00 06/09/22 10:57 Amlodipine 5 Mg Tab PO 5 mg DAILY [facility] Administration Cetirizine HCl 10 mg 06/09/22 10:00 06/09/22 10:58 Cetirizine 10 Mg Tab PO 10 mg DAILY [facility] Administration Dextrose 50 ml 06/09/22 12:27 Dextrose 50% In Water (25gm) 50 Ml Syringe IV Q30MIN PRN Hypoglycemia Protocol Donepezil HCl 10 mg 06/08/22 22:00 06/09/22 21:07 Donepezil 10 Mg Tab PO 10 mg QHS [facility] Administration Famotidine 20 mg 06/10/22 10:00 Famotidine 20 Mg Tab PO QDAY [facility] Heparin Sodium (Porcine) 2,900 unit 06/09/22 08:32 Heparin 10,000 Units/10 Ml Vial 40 unit/kg (2900 unit) IV Q6H PRN Anti-Xa Assay < 0.1 units/ml Hydromorphone HCl 0.5 mg 06/08/22 17:35 06/10/22 01:27 Hydromorphone 0.5 Mg/0.5 Ml Inj IV 0.5 mg Q6H PRN Administration Pain , Severe (7-10) Sodium Chloride 1,000 mls @ 42 mls/hr 06/08/22 17:45 Nacl 0.9% 1000 Ml IV DIRECT [facility] Heparin Sodium/Sodium Chloride 25,000 unit in 500 mls @ 21 mls/hr 06/08/22 18:00 06/09/22 23:28 Heparin/ 0.45% Nacl-25,000 Unit/500 Ml IV 1,050 units/hr TITR [facility] 21 mls/hr Titration Protocol 1,050 UNITS/HR Insulin Human Lispro 0 unit 06/09/22 16:30 06/09/22 21:07 Insulin Lispro 100 Unit/Ml SUB-Q 2 unit ACHS [facility] Administration Protocol Lisinopril 20 mg 06/09/22 10:00 06/09/22 10:57 Lisinopril 20 Mg Tab PO 20 mg QDAY [facility] Administration Miscellaneous Medication 50 mg 06/08/22 22:00 06/09/22 06:16 Fluvoxamine Maleate [Fluvoxamine Maleate] PO Not Given QHS [facility] Oxycodone/Acetaminophen 1 tab 06/08/22 17:35 06/09/22 23:48 Oxycodone /Acetaminophen 5-325mg Tab PO 1 tab Q6H PRN Administration Pain, Moderate (4-6) Risperidone 4 mg 06/08/22 22:00 06/09/22 21:07 Risperidone 1 Mg Tab PO 4 mg QHS [facility] Administration Sodium Chloride 10 ml 06/08/22 22:00 06/09/22 21:08 Sodium Chloride 0.9% 10 Ml Flush Syringe IV 10 ml BID [facility] Administration Sodium Chloride 10 ml 06/08/22 17:35 06/10/22 01:27 Sodium Chloride 0.9% 10 Ml Flush Syringe IV 10 ml PRN PRN Administration LINE FLUSH Trazodone HCl 200 mg 06/08/22 22:00 06/09/22 21:07 Trazodone 100 Mg Tab PO 200 mg QHS [facility] Administration
[2022-06-09] MEDS ORDERED: DEXTROSE 50% IN WATER (25GM) 50 ML SYRINGE IV PRN (12:27)
[2022-06-09] MEDS ORDERED: FAMOTIDINE 20 MG/2 ML INJ IV SCH (14:00)
[2022-06-09] MEDS: INSULIN LISPRO 100 UNIT/ML SUB-Q SCH ×2 (16:31→21:07)
[2022-06-09] MEDS: HEPARIN/ 0.45% NACL DRIP 25,000 UNIT/500 ML BAG IV SCH (20:39)
[2022-06-09] MEDS: ACETAMINOPHEN 325 MG TAB PO PRN (20:46)
[2022-06-09] MEDS: DONEPEZIL 10 MG TAB PO SCH (21:07)
[2022-06-09] MEDS: risperiDONE 1 MG TAB PO SCH (21:07)
[2022-06-09] MEDS: traZODone 100 MG TAB PO SCH (21:07)
[2022-06-09] MEDS: oxyCODONE /ACETAMINOPHEN 5-325MG TAB PO PRN (23:48)
[2022-06-10] MEDS: HYDROmorphone 0.5 MG/0.5 ML INJ IV PRN ×2 (01:27→15:19)
[2022-06-10 05:34] LABS: Hematocrit 41.9 % (35.5-45.6); Hemoglobin 13.6 gm/dl (11.8-15.2); Mean Corpuscular HGB Conc 33 % (32-34); Mean Corpuscular Volume 92 fl (84-94); Platelet Count 167 K/mm3 (140-440); Red Blood Count 4.55 M/mm3 (3.65-5.03); Red Cell Distribution Width 14.5 % (13.2-15.2)
[2022-06-10] MEDS: SODIUM CHLORIDE 0.9% 1000 ML 1,000 ML IV SCH ×2 (07:40→21:11)
[2022-06-10] MEDS: INSULIN LISPRO 100 UNIT/ML SUB-Q SCH ×4 (10:20→21:31)
[2022-06-10] MEDS: LISINOPRIL 20 MG TAB PO SCH (10:21)
[2022-06-10] MEDS: CETIRIZINE 10 MG TAB PO SCH (10:21)
[2022-06-10] MEDS: FAMOTIDINE 20 MG TAB PO SCH (10:21)
[2022-06-10] MEDS: amLODIPine 5 MG TAB PO SCH (10:21)
--- NOTE | 2022-06-10 10:22 | Progress Note ---
Assessment and Plan Patient will go down to [facility] for placement of EKOS catheter with possible other intervention tomorrow. N.p.o. after midnight Subjective Date of service: 06/10/22 Principal diagnosis: PVD with subacute arterial occlusion of his left SFA Interval history: Patient stable. He remains on heparin drip. That the patient's leg is warm to mid calf and then asymmetrically cooler than his right leg below this level. Patient can minimally move his ankle and feel touch. This is stable from his presentation. Objective - Constitutional Vitals: Vital Signs - 12hr 06/09/22 06/09/22 06/09/22 22:31 22:41 22:51 Temperature Pulse Rate 48 L 56 L 78 Pulse Rate [ From Monitor] Respiratory 16 20 20 Rate Respiratory Rate [Left Leg] Blood Pressure 138/58 138/58 138/58 O2 Sat by Pulse 95 97 96 Oximetry 06/09/22 06/09/22 06/09/22 23:00 23:10 23:11 Temperature 97.8 F Pulse Rate 47 L 46 L Pulse Rate [ From Monitor] Respiratory 17 15 Rate Respiratory Rate [Left Leg] Blood Pressure 130/55 130/55 O2 Sat by Pulse 95 95 Oximetry 06/09/22 06/09/22 06/09/22 23:15 23:20 23:21 Temperature Pulse Rate 48 L 47 L 48 L Pulse Rate [ 52 L From Monitor] Respiratory 20 16 16 Rate Respiratory Rate [Left Leg] Blood Pressure 151/63 130/55 O2 Sat by Pulse 100 95 95 Oximetry 06/09/22 06/09/22 06/09/22 23:31 23:41 23:48 Temperature Pulse Rate 49 L 61 Pulse Rate [ From Monitor] Respiratory 15 15 18 Rate Respiratory Rate [Left Leg] Blood Pressure 130/55 130/55 O2 Sat by Pulse 97 96 Oximetry 06/09/22 06/10/22 06/10/22 23:51 00:01 00:11 Temperature Pulse Rate 49 L 41 L 62 Pulse Rate [ From Monitor] Respiratory 11 L 14 16 Rate Respiratory Rate [Left Leg] Blood Pressure 130/55 103/38 103/38 O2 Sat by Pulse 98 99 100 Oximetry 06/10/22 06/10/22 06/10/22 00:21 00:31 00:41 Temperature Pulse Rate 40 L 40 L 46 L Pulse Rate [ From Monitor] Respiratory 13 14 11 L Rate Respiratory Rate [Left Leg] Blood Pressure 103/38 103/38 103/38 O2 Sat by Pulse 98 97 100 Oximetry 06/10/22 06/10/22 06/10/22 00:48 00:51 01:00 Temperature Pulse Rate 41 L 42 L Pulse Rate [ From Monitor] Respiratory 18 16 14 Rate Respiratory Rate [Left Leg] Blood Pressure 103/38 112/49 O2 Sat by Pulse 97 96 Oximetry 06/10/22 06/10/22 06/10/22 01:09 01:11 01:21 Temperature Pulse Rate 42 L 41 L 43 L Pulse Rate [ From Monitor] Respiratory 20 13 13 Rate Respiratory Rate [Left Leg] Blood Pressure 112/49 112/49 O2 Sat by Pulse 100 97 97 Oximetry 06/10/22 06/10/22 06/10/22 01:27 01:31 01:41 Temperature Pulse Rate 40 L 36 L Pulse Rate [ From Monitor] Respiratory 15 18 Rate Respiratory 16 Rate [Left Leg] Blood Pressure 112/49 112/49 O2 Sat by Pulse 97 97 Oximetry 06/10/22 06/10/22 06/10/22 01:51 01:57 02:01 Temperature Pulse Rate 37 L 33 L Pulse Rate [ From Monitor] Respiratory 17 12 Rate Respiratory 16 Rate [Left Leg] Blood Pressure 112/49 99/40 O2 Sat by Pulse 99 98 Oximetry 06/10/22 06/10/22 06/10/22 02:11 02:21 02:31 Temperature Pulse Rate 34 L 34 L 35 L Pulse Rate [ From Monitor] Respiratory 12 10 L 11 L Rate Respiratory Rate [Left Leg] Blood Pressure 112/49 112/49 112/49 O2 Sat by Pulse 98 99 98 Oximetry 06/10/22 06/10/22 06/10/22 02:41 02:51 03:01 Temperature Pulse Rate 34 L 34 L 34 L Pulse Rate [ From Monitor] Respiratory 9 L 9 L 9 L Rate Respiratory Rate [Left Leg] Blood Pressure 112/49 112/49 113/47 O2 Sat by Pulse 98 97 96 Oximetry 06/10/22 06/10/22 06/10/22 03:11 03:21 03:25 Temperature Pulse Rate 35 L 38 L 39 L Pulse Rate [ From Monitor] Respiratory 8 L 11 L 20 Rate Respiratory Rate [Left Leg] Blood Pressure 113/47 113/47 O2 Sat by Pulse 98 97 100 Oximetry 06/10/22 06/10/22 06/10/22 03:31 03:41 03:51 Temperature Pulse Rate 35 L 35 L 45 L Pulse Rate [ From Monitor] Respiratory 8 L 8 L 10 L Rate Respiratory Rate [Left Leg] Blood Pressure 113/47 113/47 113/47 O2 Sat by Pulse 97 97 96 Oximetry 06/10/22 06/10/22 06/10/22 04:01 04:10 04:20 Temperature Pulse Rate 39 L 35 L 35 L Pulse Rate [ From Monitor] Respiratory 10 L 12 10 L Rate Respiratory Rate [Left Leg] Blood Pressure 122/49 122/49 122/49 O2 Sat by Pulse 96 98 97 Oximetry 06/10/22 06/10/22 06/10/22 04:31 04:41 04:51 Temperature Pulse Rate 35 L 35 L Pulse Rate [ From Monitor] Respiratory 9 L 9 L Rate Respiratory Rate [Left Leg] Blood Pressure 122/49 122/49 O2 Sat by Pulse 97 97 97 Oximetry 06/10/22 06/10/22 06/10/22 05:01 05:11 05:21 Temperature Pulse Rate 35 L 35 L 41 L Pulse Rate [ From Monitor] Respiratory 10 L 9 L 12 Rate Respiratory Rate [Left Leg] Blood Pressure 125/49 125/49 125/49 O2 Sat by Pulse 96 98 100 Oximetry 06/10/22 06/10/22 06/10/22 05:31 05:41 05:51 Temperature Pulse Rate 36 L 40 L 41 L Pulse Rate [ From Monitor] Respiratory 10 L 10 L 18 Rate Respiratory Rate [Left Leg] Blood Pressure 125/49 125/49 125/49 O2 Sat by Pulse 99 98 97 Oximetry 06/10/22 06/10/22 06/10/22 05:55 05:56 06:01 Temperature Pulse Rate 41 L 37 L Pulse Rate [ From Monitor] Respiratory 20 9 L Rate Respiratory Rate [Left Leg] Blood Pressure 140/47 O2 Sat by Pulse 100 99 Oximetry 06/10/22 06/10/22 06/10/22 06:11 06:21 06:31 Temperature Pulse Rate 40 L 40 L 41 L Pulse Rate [ From Monitor] Respiratory 8 L 10 L 10 L Rate Respiratory Rate [Left Leg] Blood Pressure 140/47 140/47 140/47 O2 Sat by Pulse 99 100 98 Oximetry 06/10/22 06/10/22 06/10/22 06:41 06:51 07:00 Temperature Pulse Rate 37 L 37 L Pulse Rate [ 46 L From Monitor] Respiratory 9 L 8 L 20 Rate Respiratory Rate [Left Leg] Blood Pressure 140/47 140/47 O2 Sat by Pulse 98 99 100 Oximetry 06/10/22 06/10/22 06/10/22 07:01 07:11 07:21 Temperature Pulse Rate 37 L 34 L 36 L Pulse Rate [ From Monitor] Respiratory 10 L 12 11 L Rate Respiratory Rate [Left Leg] Blood Pressure 135/55 135/55 135/55 O2 Sat by Pulse 97 99 98 Oximetry 06/10/22 06/10/22 06/10/22 07:31 07:41 07:44 Temperature 97.7 F Pulse Rate 35 L 54 L Pulse Rate [ From Monitor] Respiratory 11 L 12 Rate Respiratory Rate [Left Leg] Blood Pressure 135/55 135/55 O2 Sat by Pulse 98 98 Oximetry 06/10/22 06/10/22 06/10/22 07:51 08:00 08:11 Temperature Pulse Rate 42 L 53 L 77 Pulse Rate [ From Monitor] Respiratory 12 12 15 Rate Respiratory Rate [Left Leg] Blood Pressure 135/55 143/56 143/56 O2 Sat by Pulse 99 99 98 Oximetry 06/10/22 08:21 Temperature Pulse Rate 57 L Pulse Rate [ From Monitor] Respiratory 13 Rate Respiratory Rate [Left Leg] Blood Pressure 143/56 O2 Sat by Pulse 100 Oximetry General appearance: Present: no acute distress - EENT Eyes: EOM intact ENT: hearing intact - Neck Neck: supple, normal ROM - Respiratory Respiratory effort: normal Extremities: abnormal (Per HPI) - Gastrointestinal General gastrointestinal: Present: deferred Rectal Exam: deferred - Genitourinary Male genitourinary: deferred - Psychiatric Psychiatric: cooperative - Labs CBC & Chem 7: 06/10/22 05:18 06/10/22 05:18 Labs: Abnormal lab results 06/09/22 06/09/22 06/09/22 Range/Units 10:21 10:21 16:16 APTT 138.6 H* (24.2-36.6) Sec. Heparin Anti-Xa Level 0.80 H 0.78 H (0.3-0.7) U.I./ml Sodium (137-145) mmol/L BUN (9-20) mg/dL Creatinine (0.8-1.3) mg/dL Glucose (75-100) mg/dL POC Glucose (70-105) mg/dL 06/09/22 06/09/22 06/09/22 Range/Units 16:29 20:38 22:46 APTT (24.2-36.6) Sec. Heparin Anti-Xa Level 0.83 H (0.3-0.7) U.I./ml Sodium (137-145) mmol/L BUN (9-20) mg/dL Creatinine (0.8-1.3) mg/dL Glucose (75-100) mg/dL POC Glucose 264 H 218 H (70-105) mg/dL 06/10/22 06/10/22 06/10/22 Range/Units 05:18 05:18 07:51 APTT (24.2-36.6) Sec. Heparin Anti-Xa Level 0.82 H (0.3-0.7) U.I./ml Sodium 134 L (137-145) mmol/L BUN 25 H (9-20) mg/dL Creatinine 1.4 H (0.8-1.3) mg/dL Glucose 227 H (75-100) mg/dL POC Glucose 200 H (70-105) mg/dL Medications & Allergies - Medications Allergies/Adverse Reactions: Allergies Penicillins Allergy (Intermediate, Verified 02/07/22 23:25) Rash Home Medications: Home Medications Medication Instructions Recorded Confirmed Last Taken Type Fluvoxamine Maleate [fluvoxaMINE 50 mg PO QHS 01/09/16 06/09/22 06/07/22 21:00 History Maleate] Loratadine (Nf) [Claritin (Nf)] 10 mg PO DAILY 01/09/16 06/09/22 06/08/22 09:00 History amLODIPine 5 mg PO DAILY 01/09/16 06/09/22 06/08/22 09:00 History carvediloL [Coreg] 3.125 mg PO BID 01/09/16 06/09/22 06/08/22 09:00 History donepeziL [Aricept] 10 mg PO QHS 01/09/16 06/09/22 06/07/22 21:00 History lisinopriL [Zestril TAB] 20 mg PO QDAY 0206/09/22 06/08/22 09:00 History risperiDONE [RisperDAL] 4 mg PO QHS 01/09/16 06/09/22 06/07/22 21:00 History traZODone [Desyrel] 200 mg PO QHS 01/09/16 06/09/22 06/07/22 21:00 History Insulin Glargine [Lantus VIAL] 15 units SUB-Q QAMDIAB #1 units 01/12/16 06/09/22 06/08/22 09:00 Rx Insulin Glulisine [Apidra] 8 units SUB-Q AC #1 units 01/12/16 06/09/22 06/08/22 09:00 Rx Active Medications: Generic Name Dose Route Start Last Admin Trade Name Freq PRN Reason Stop Dose Admin Acetaminophen 650 mg 06/08/22 17:35 06/09/22 20:46 Acetaminophen 325 Mg Tab PO 650 mg Q6H PRN Administration Pain MILD(1-3)/Fever >100.5/PACHECO Albuterol 2.5 mg 06/08/22 17:35 Albuterol 2.5 Mg/3 Ml Nebu IH Q3HRT PRN Shortness Of Breath Amlodipine Besylate 5 mg 06/09/22 10:00 06/09/22 10:57 Amlodipine 5 Mg Tab PO 5 mg DAILY DARRYL Administration Cetirizine HCl 10 mg 06/09/22 10:00 06/09/22 10:58 Cetirizine 10 Mg Tab PO 10 mg DAILY DARRYL Administration Dextrose 50 ml 06/09/22 12:27 Dextrose 50% In Water (25gm) 50 Ml Syringe IV Q30MIN PRN Hypoglycemia Protocol Donepezil HCl 10 mg 06/08/22 22:00 06/09/22 21:07 Donepezil 10 Mg Tab PO 10 mg QHS DARRYL Administration Famotidine 20 mg 06/10/22 10:00 Famotidine 20 Mg Tab PO QDAY DARRYL Heparin Sodium (Porcine) 2,900 unit 06/09/22 08:32 Heparin 10,000 Units/10 Ml Vial 40 unit/kg (2900 unit) IV Q6H PRN Anti-Xa Assay < 0.1 units/ml Hydromorphone HCl 0.5 mg 06/08/22 17:35 06/10/22 01:27 Hydromorphone 0.5 Mg/0.5 Ml Inj IV 0.5 mg Q6H PRN Administration Pain , Severe (7-10) Sodium Chloride 1,000 mls @ 50 mls/hr 06/08/22 17:45 Nacl 0.9% 1000 Ml IV DIRECT DARRYL Heparin Sodium/Sodium Chloride 25,000 unit in 500 mls @ 21 mls/hr 06/08/22 18:00 06/09/22 23:28 Heparin/ 0.45% Nacl-25,000 Unit/500 Ml IV 1,050 units/hr TITR DARRYL 21 mls/hr Titration Protocol 1,050 UNITS/HR Insulin Glargine 5 units 06/10/22 22:00 Insulin Glargine 100 Units/Ml SUB-Q QHS [facility] Insulin Human Lispro 0 unit 06/09/22 16:30 06/09/22 21:07 Insulin Lispro 100 Unit/Ml SUB-Q 2 unit ACHS [facility] Administration Protocol Lisinopril 20 mg 06/09/22 10:00 06/09/22 10:57 Lisinopril 20 Mg Tab PO 20 mg QDAY DARRYL Administration Miscellaneous Medication 50 mg 06/08/22 22:00 06/09/22 06:16 Fluvoxamine Maleate [Fluvoxamine Maleate] PO Not Given QHS [facility] Oxycodone/Acetaminophen 1 tab 06/08/22 17:35 06/09/22 23:48 Oxycodone /Acetaminophen 5-325mg Tab PO 1 tab Q6H PRN Administration Pain, Moderate (4-6) Risperidone 4 mg 06/08/22 22:00 06/09/22 21:07 Risperidone 1 Mg Tab PO 4 mg QHS DARRYL Administration Sodium Chloride 10 ml 06/08/22 22:00 06/09/22 21:08 Sodium Chloride 0.9% 10 Ml Flush Syringe IV 10 ml BID DARRYL Administration Sodium Chloride 10 ml 06/08/22 17:35 06/10/22 01:27 Sodium Chloride 0.9% 10 Ml Flush Syringe IV 10 ml PRN PRN Administration LINE FLUSH Trazodone HCl 200 mg 06/08/22 22:00 06/09/22 21:07 Trazodone 100 Mg Tab PO 200 mg QHS DARRYL Administration
--- NOTE | 2022-06-10 12:00 | Consultation ---
History of Present Illness Consult date: 06/10/22 Requesting physician: FERNANDO BRAXTON Consult reason: bradycardia History of present illness: Pt is a 77-year-old AA male with a hx of HTN, DM2, chronic sinus bradycardia, cerebral atherosclerosis, vascular dementia, and schizophrenia who is currently admitted per [facility] Surg recs for SFA occlusion. He is on an IV heparin drip and is awaiting revascularization tomorrow. Cardiology has been consulted for bradycardia. Pt has chronic sinus bradycardia with a ventricular rate typically in the 40-50bpm range in the outpatient setting. He is followed by Dr. Karis Haas at [place]. Pt was found to be bradycardic in the 30s upon arrival. Per med rec, he was taking Carvedilol at home. It is unclear who prescribed this or why. Pt denies any cardiac complaints, including chest pain, SOB, palpitations, dizziness, lightheadedness, or syncope. Review of tele today reveals SB in the 40-50s with ?intermittent junctional escape rhythm. Past History Past Medical History: diabetes, hypertension, PVD, other (sinus bradycardia) Past Surgical History: No surgical history Social history: lives with family, smoking (former, quit 20 years ago). denies: alcohol abuse Family history: hypertension Medications and Allergies Allergies Allergy/AdvReac Type Severity Reaction Status Date / Time Penicillins Allergy Intermediate Rash Verified 02/07/22 23:25 Home Medications Medication Instructions Recorded Confirmed Last Taken Type Fluvoxamine Maleate [fluvoxaMINE 50 mg PO QHS 01/09/16 06/09/22 06/07/22 21:00 History Maleate] Loratadine (Nf) [Claritin (Nf)] 10 mg PO DAILY 01/09/16 06/09/22 06/08/22 09:00 History amLODIPine 5 mg PO DAILY 01/09/16 06/09/22 06/08/22 09:00 History carvediloL [Coreg] 3.125 mg PO BID 01/09/16 06/09/22 06/08/22 09:00 History donepeziL [Aricept] 10 mg PO QHS 01/09/16 06/09/22 06/07/22 21:00 History lisinopriL [Zestril TAB] 20 mg PO QDAY 01/09/16 06/09/22 06/08/22 09:00 History risperiDONE [RisperDAL] 4 mg PO QHS 01/09/16 06/09/22 06/07/22 21:00 History traZODone [Desyrel] 200 mg PO QHS 01/09/16 06/09/22 06/07/22 21:00 History Insulin Glargine [Lantus VIAL] 15 units SUB-Q QAMDIAB #1 units 01/12/16 06/09/22 06/08/22 09:00 Rx Insulin Glulisine [Apidra] 8 units SUB-Q AC #1 units 01/12/16 06/09/22 06/08/22 09:00 Rx Active Meds: Active Medications Acetaminophen (Acetaminophen 325 Mg Tab) 650 mg PO Q6H PRN PRN Reason: Pain MILD(1-3)/Fever >100.5/PACHECO Last Admin: 06/09/22 20:46 Dose: 650 mg Albuterol (Albuterol 2.5 Mg/3 Ml Nebu) 2.5 mg IH Q3HRT PRN PRN Reason: Shortness Of Breath Amlodipine Besylate (Amlodipine 5 Mg Tab) 5 mg PO DAILY [facility] Last Admin: 06/10/22 10:21 Dose: 5 mg Cetirizine HCl (Cetirizine 10 Mg Tab) 10 mg PO DAILY [facility] Last Admin: 06/10/22 10:21 Dose: 10 mg Dextrose (Dextrose 50% In Water (25gm) 50 Ml Syringe) 50 ml IV Q30MIN PRN; Protocol PRN Reason: Hypoglycemia Donepezil HCl (Donepezil 10 Mg Tab) 10 mg PO QHS [facility] Last Admin: 06/09/22 21:07 Dose: 10 mg Famotidine (Famotidine 20 Mg Tab) 20 mg PO QDAY [facility] Last Admin: 06/10/22 10:21 Dose: 20 mg Heparin Sodium (Porcine) (Heparin 10,000 Units/10 Ml Vial) 2,900 unit 40 unit/kg (2900 unit) IV Q6H PRN PRN Reason: Anti-Xa Assay < 0.1 units/ml Hydromorphone HCl (Hydromorphone 0.5 Mg/0.5 Ml Inj) 0.5 mg IV Q6H PRN PRN Reason: Pain , Severe (7-10) Last Admin: 06/10/22 01:27 Dose: 0.5 mg Sodium Chloride (Nacl 0.9% 1000 Ml) 1,000 mls @ 50 mls/hr IV DIRECT [facility] Last Admin: 06/10/22 07:40 Dose: 50 mls/hr Heparin Sodium/Sodium Chloride (Heparin/ 0.45% Nacl-25,000 Unit/500 Ml) 25,000 unit in 500 mls @ 21 mls/hr IV TITR [facility]; Protocol Last Titration: 06/09/22 23:28 Dose: 1,050 units/hr, 21 mls/hr Insulin Glargine (Insulin Glargine 100 Units/Ml) 5 units SUB-Q QHS DARRYL Insulin Human Lispro (Insulin Lispro 100 Unit/Ml) 0 unit SUB-Q ACHS [facility]; Protocol Last Admin: 06/10/22 11:36 Dose: 8 unit Lisinopril (Lisinopril 20 Mg Tab) 20 mg PO QDAY [facility] Last Admin: 06/10/22 10:21 Dose: 20 mg Miscellaneous Medication (Fluvoxamine Maleate [Fluvoxamine Maleate]) 50 mg PO QHS [facility] Last Admin: 06/09/22 06:16 Dose: Not Given Oxycodone/Acetaminophen (Oxycodone /Acetaminophen 5-325mg Tab) 1 tab PO Q6H PRN PRN Reason: Pain, Moderate (4-6) Last Admin: 06/09/22 23:48 Dose: 1 tab Risperidone (Risperidone 1 Mg Tab) 4 mg PO QHS [facility] Last Admin: 06/09/22 21:07 Dose: 4 mg Sodium Chloride (Sodium Chloride 0.9% 10 Ml Flush Syringe) 10 ml IV BID [facility] Last Admin: 06/10/22 10:21 Dose: 10 ml Sodium Chloride (Sodium Chloride 0.9% 10 Ml Flush Syringe) 10 ml IV PRN PRN PRN Reason: LINE FLUSH Last Admin: 06/10/22 01:27 Dose: 10 ml Trazodone HCl (Trazodone 100 Mg Tab) 200 mg PO QHS [facility] Last Admin: 06/09/22 21:07 Dose: 200 mg Review of Systems Constitutional: no fever, no chills Ears, nose, mouth and throat: no nasal congestion, no sore throat Cardiovascular: no chest pain, no palpitations, no syncope, no lightheadedness, no shortness of breath Respiratory: no shortness of breath Gastrointestinal: no nausea, no vomiting Genitourinary Male: no dysuria Musculoskeletal: no myalgias Integumentary: no rash, no wounds Neurological: no numbness, no tingling, no seizures, no syncope, no vertigo Endocrine: no cold intolerance, no heat intolerance Hematologic/Lymphatic: no easy bruising, no easy bleeding Allergic/Immunologic: no anaphylaxis Physical Examination Vital Signs Temp Pulse Resp BP Pulse Ox 98.5 F 48 L 16 152/63 100 06/08/22 17:24 06/08/22 17:24 06/08/22 17:24 06/08/22 17:24 06/08/22 17:24 General appearance: no acute distress HEENT: Positive: EOMI, Normocephaly Neck: Positive: neck supple, trachea midline. Negative: JVD/HJR Cardiac: Positive: Bradycardia Lungs: Positive: Normal Exam Neuro: Positive: Grossly Intact Abdomen: Positive: Soft. Negative: Tender Skin: Negative: Rash Musculoskeletal: No Pain Extremities: Present: Cool (LLE). Absent: edema Results 06/10/22 05:18 06/10/22 05:18 CBC 06/10/22 Range/Units 05:18 WBC 4.7 (4.5-11.0) K/mm3 RBC 4.55 (3.65-5.03) M/mm3 Hgb 13.6 (11.8-15.2) gm/dl Hct 41.9 (35.5-45.6) % Plt Count 167 (140-440) K/mm3 Comprehensive Metabolic Panel 06/10/22 Range/Units 05:18 Sodium 134 L (137-145) mmol/L Potassium 4.6 (3.6-5.0) mmol/L Chloride 101.6 (98-107) mmol/L Carbon Dioxide 24 (22-30) mmol/L BUN 25 H (9-20) mg/dL Creatinine 1.4 H (0.8-1.3) mg/dL Glucose 227 H (75-100) mg/dL Calcium 9.0 (8.4-10.2) mg/dL - Imaging and Cardiology Echo: pending EKG: report reviewed, image reviewed EKG interpretations - Telemetry EKG Rhythm: Junctional - EKG Sinus rhythms and dysrhythmias: sinus bradycardia AV and intraventricular conduction: 1 AV block Repolarization changes or abnormalities: nonspecific abnormality, ST segment, and/or T wave Assessment and Plan Assessment: Chronic Sinus Bradycardia ?Intermittent Junctional Rhythm PVD / SFA Occlusion PATRICIA HTN DM2 Cerebral Atherosclerosis Vascular Dementia Schizophrenia Plan: Obtain echo. Avoid AV pham blocking agents. Unclear why pt was prescribed Carvedilol as an outpatient. He is not on a BB per his [employer] @ [place] (Dr. Haas). No appreciable indication for BB. Check TSH and Mg. No cardiac contraindications to proceeding with vascular intervention as planned. Pt seen in conjunction with Dr. Adriano Epstein, who agrees with the assessment and plan of care. - Patient Problems (1) Sinus bradycardia Current Visit: Yes Status: Chronic (2) Arterial occlusion, lower extremity Current Visit: Yes Status: Acute
--- NOTE | 2022-06-10 14:08 | Progress Note ---
<VIKKI NGUYEN - Last Filed: 06/10/22 14:59> Assessment and Plan Assessment and plan: This is a 77-year-old male with known past medical history of vascular dementia with behavioral disturbance, schizophrenia, cerebral atherosclerosis, DM, HTN, and PVD admitted for LLE ischemia Hospital Course to Date: 06/09: Remains on heaprin gtt per protocol. Vascular Surgery recommendations noted, plan for possible revascularization procedure likely on Saturday. Patient also noted with SB, HR in the 30s. Home BB held, cardiology also consulted for further eval and clearance for possible vascular procedure. 06/10: Remains stable on RA. Heparin gtt per protocol. Per Vascular surgery plan for Block Trimmer for placement of EKOS catheter with possible other intervention tomorrow, N.p.o. after midnight. Remains in bradycardic, BP stable, Cardiology recommendations noted. SSI adjusted and Lantus Qhs added for hyperglycemia. Assessment and Plan #Peripheral Vascular Disease(PVD) #Ischemia of Left Lower Extremity #Subacute Occlusion of SFA - Presented from from vascular surgery's office due to [id number] leg pain with discoloration - CTA reveals occluded left femoral, popliteal, tibiofemoral trunk likely from embolic disease. See report for full details - Heaprin gtt was initiated per protocol - Vascular Surgery consulted, appreciated recommendations - Per Vascular surgery plan for Block Trimmer for placement of EKOS catheter with possible other intervention tomorrow, N.p.o. after midnight - Continue vascular exam per protocol #Bradycardia #Hypertension - SB, HR in the 30s on the monitor this am, BP stable - Home antihypertensive resumed. 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 - Follow up outpatient for further eval #Type 2 Diabetes Mellitus with Hyperglycemia - Consistent carbohydrate diet - BG check and SSI Adjusted - Lantus Qhs added - Avoid hypoglcemia #Vascular Dementia with Behavioral Disturbance #Schizophrenia - Currently calm and appropriate - Continue medical management, home meds resumed - Verbal prompting, verbal redirection - Avoid benzodiazepine to reduce the possibility of delirium - Maintenance of sleep-wake cycle #Cerebral Atherosclerosis - Risk factor reduction, supportive care, antiplatelet therapy as clinically indicated. #GI/DVT Prophylaxis - PPI- Pepcid - Heparin gtt - SCD bilateral lower extremities while in bed The high probability of a clinically significant, sudden or life threatening deterioration of the [multiple] system(s) required my full and direct attention, intervention and personal management. The aggregate critical care time was [60] minutes. This time is in addition to time spent performing reported procedures but includes the following: [x] Data Review and interpretation [x] Patient assessment and monitoring of vital signs [x] Documentation [x] Medication orders and management Disposition Plan: IMCU Total Time Spent with Patient (Minutes): 60 History Interval history: Patient seen and examined at the bedside.Remains stable on RA. Still complaining LLE pain/soreness. Upon assessment, patient's left foot is cool to touch, weak pedal pulse palpated. On heparin gtt per protocol. SB heart in the 30s to 50s on the monitor, BP stable. Hospitalist Physical - Physical exam Narrative exam: General appearance: Present: no acute distress, well-nourished - EENT Eyes: Present: PERRL, EOM intact ENT: hearing intact, poor dentition - Neck Neck: Present: normal ROM - Respiratory Respiratory effort: normal Respiratory: bilateral: diminished - Cardiovascular Rhythm: regular Heart Sounds: Present: S1 & S2 - Extremities Extremities: No edema, Full ROM, abnormal (LLE cool to touch with weak pedal pulse.) Extremity abnormal: pulses diminished (LLE) Peripheral Pulses: abnormal (Weak pedal pulse, LLE) - Abdominal General gastrointestinal: soft, non-distended, normal bowel sounds - Integumentary Integumentary: Present: clear, dry, decreased turgor - Psychiatric Psychiatric: appropriate mood/affect, cooperative - Neurologic Neurologic: CNII-XII intact, moves all extremities, other (Periods of disorientation) - Allied Health Allied health notes reviewed: nursing, Case management - Constitutional Vitals: Temp Pulse Resp BP Pulse Ox 98.4 F 46 L 14 152/56 99 06/10/22 11:49 06/10/22 11:11 06/10/22 11:11 06/10/22 11:11 06/10/22 11:11 Results - Labs CBC & Chem 7: 06/10/22 05:18 06/10/22 05:18 Labs: Laboratory Last Values WBC 4.7 K/mm3 (4.5-11.0) 06/10/22 05:18 RBC 4.55 M/mm3 (3.65-5.03) 06/10/22 05:18 Hgb 13.6 gm/dl (11.8-15.2) 06/10/22 05:18 Hct 41.9 % (35.5-45.6) 06/10/22 05:18 MCV 92 fl (84-94) 06/10/22 05:18 MCH 30 pg (28-32) 06/10/22 05:18 MCHC 33 % (32-34) 06/10/22 05:18 RDW 14.5 % (13.2-15.2) 06/10/22 05:18 Plt Count 167 K/mm3 (140-440) 06/10/22 05:18 Lymph % (Auto) 38.3 % (13.4-35.0) H 06/09/22 02:16 [place] % (Auto) 9.9 % (0.0-7.3) H 06/09/22 02:16 Eos % (Auto) 1.7 % (0.0-4.3) 06/09/22 02:16 Baso % (Auto) 1.0 % (0.0-1.8) 06/09/22 02:16 Lymph # (Auto) 1.7 K/mm3 (1.2-5.4) 06/09/22 02:16 [place] # (Auto) 0.4 K/mm3 (0.0-0.8) 06/09/22 02:16 Eos # (Auto) 0.1 K/mm3 (0.0-0.4) 06/09/22 02:16 Baso # (Auto) 0.0 K/mm3 (0.0-0.1) 06/09/22 02:16 Seg Neutrophils % 49.1 % (40.0-70.0) 06/09/22 02:16 Seg Neutrophils # 2.2 K/mm3 (1.8-7.7) 06/09/22 02:16 PT 14.9 Sec. (12.2-14.9) 06/09/22 10:21 INR 1.05 (0.87-1.13) 06/09/22 10:21 APTT 138.6 Sec. (24.2-36.6) H* 06/09/22 10:21 Heparin Anti-Xa Level 0.82 U.I./ml (0.3-0.7) H 06/10/22 05:18 Sodium 134 mmol/L (137-145) L 06/10/22 05:18 Potassium 4.6 mmol/L (3.6-5.0) 06/10/22 05:18 Chloride 101.6 mmol/L (98-107) 06/10/22 05:18 Carbon Dioxide 24 mmol/L (22-30) 06/10/22 05:18 Anion Gap 13 mmol/L 06/10/22 05:18 BUN 25 mg/dL (9-20) H 06/10/22 05:18 Creatinine 1.4 mg/dL (0.8-1.3) H 06/10/22 05:18 Estimated GFR 59 ml/min 06/10/22 05:18 BUN/Creatinine Ratio 18 % 06/10/22 05:18 Glucose 227 mg/dL (75-100) H 06/10/22 05:18 POC Glucose 340 mg/dL (70-105) H 06/10/22 11:23 Calcium 9.0 mg/dL (8.4-10.2) 06/10/22 05:18 Total Bilirubin 0.40 mg/dL (0.1-1.2) 06/08/22 17:59 AST 17 units/L (5-40) 06/08/22 17:59 ALT 18 units/L (7-56) 06/08/22 17:59 Alkaline Phosphatase 77 units/L (35-129) 06/08/22 17:59 Total Protein 7.8 g/dL (6.3-8.2) 06/08/22 17:59 Albumin 4.5 g/dL (3.9-5) 06/08/22 17:59 Albumin/Globulin Ratio 1.4 % 06/08/22 17:59 Khalil/IV: Voiding Method Urinal Active Medications - Current Medications Current Medications: Generic Name Dose Route Start Last Admin Trade Name Freq PRN Reason Stop Dose Admin Acetaminophen 650 mg 06/08/22 17:35 06/09/22 20:46 Acetaminophen 325 Mg Tab PO 650 mg Q6H PRN Administration Pain MILD(1-3)/Fever >100.5/PACHECO Albuterol 2.5 mg 06/08/22 17:35 Albuterol 2.5 Mg/3 Ml Nebu IH Q3HRT PRN Shortness Of Breath Amlodipine Besylate 5 mg 06/09/22 10:00 06/10/22 10:21 Amlodipine 5 Mg Tab PO 5 mg DAILY DARRYL Administration Cetirizine HCl 10 mg 06/09/22 10:00 06/10/22 10:21 Cetirizine 10 Mg Tab PO 10 mg DAILY DARRYL Administration Dextrose 50 ml 06/09/22 12:27 Dextrose 50% In Water (25gm) 50 Ml Syringe IV Q30MIN PRN Hypoglycemia Protocol Donepezil HCl 10 mg 06/08/22 22:00 06/09/22 21:07 Donepezil 10 Mg Tab PO 10 mg QHS DARRYL Administration Famotidine 20 mg 06/10/22 10:00 06/10/22 10:21 Famotidine 20 Mg Tab PO 20 mg QDAY DARRYL Administration Heparin Sodium (Porcine) 2,900 unit 06/09/22 08:32 Heparin 10,000 Units/10 Ml Vial 40 unit/kg (2900 unit) IV Q6H PRN Anti-Xa Assay < 0.1 units/ml Hydromorphone HCl 0.5 mg 06/08/22 17:35 06/10/22 01:27 Hydromorphone 0.5 Mg/0.5 Ml Inj IV 0.5 mg Q6H PRN Administration Pain , Severe (7-10) Sodium Chloride 1,000 mls @ 50 mls/hr 06/08/22 17:45 06/10/22 07:40 Nacl 0.9% 1000 Ml IV 50 mls/hr DIRECT DARRYL Administration Heparin Sodium/Sodium Chloride 25,000 unit in 500 mls @ 21 mls/hr 06/08/22 18:00 06/09/22 23:28 Heparin/ 0.45% Nacl-25,000 Unit/500 Ml IV 1,050 units/hr TITR DARRYL 21 mls/hr Titration Protocol 1,050 UNITS/HR Insulin Glargine 10 units 06/10/22 22:00 Insulin Glargine 100 Units/Ml SUB-Q QHS DARRYL Insulin Human Lispro 0 unit 06/09/22 16:30 06/10/22 11:36 Insulin Lispro 100 Unit/Ml SUB-Q 8 unit ACHS DARRYL Administration Protocol Lisinopril 20 mg 06/09/22 10:00 06/10/22 10:21 Lisinopril 20 Mg Tab PO 20 mg QDAY DARRYL Administration Miscellaneous Medication 50 mg 06/08/22 22:00 06/09/22 06:16 Fluvoxamine Maleate [Fluvoxamine Maleate] PO Not Given QHS DARRYL Oxycodone/Acetaminophen 1 tab 06/08/22 17:35 06/09/22 23:48 Oxycodone /Acetaminophen 5-325mg Tab PO 1 tab Q6H PRN Administration Pain, Moderate (4-6) Risperidone 4 mg 06/08/22 22:00 06/09/22 21:07 Risperidone 1 Mg Tab PO 4 mg QHS DARRYL Administration Sodium Chloride 10 ml 06/08/22 22:00 06/10/22 10:21 Sodium Chloride 0.9% 10 Ml Flush Syringe IV 10 ml BID DARRYL Administration Sodium Chloride 10 ml 06/08/22 17:35 06/10/22 01:27 Sodium Chloride 0.9% 10 Ml Flush Syringe IV 10 ml PRN PRN Administration LINE FLUSH Trazodone HCl 200 mg 06/08/22 22:00 06/09/22 21:07 Trazodone 100 Mg Tab PO 200 mg QHS DARRYL Administration <SANTOS COBURN - Last Filed: 06/11/22 07:07> Assessment and Plan Assessment and plan: I saw and evaluated the patient. I agree with the findings and the plan of care as documented in the Nurse Practitioner's~note, with the following corrections and additions. Hospitalist Physical - Constitutional Vitals: Temp Pulse Resp BP Pulse Ox 98.6 F 68 10 L 140/83 97 06/11/22 05:15 06/11/22 06:00 06/11/22 06:00 06/11/22 06:00 06/11/22 06:00 Results - Labs CBC & Chem 7: 06/11/22 05:06 06/11/22 05:06 Labs: Laboratory Last Values WBC 4.7 K/mm3 (4.5-11.0) 06/10/22 05:18 RBC 4.55 M/mm3 (3.65-5.03) 06/10/22 05:18 Hgb 13.2 gm/dl (11.8-15.2) 06/11/22 05:06 Hct 39.2 % (35.5-45.6) 06/11/22 05:06 MCV 92 fl (84-94) 06/10/22 05:18 MCH 30 pg (28-32) 06/10/22 05:18 MCHC 33 % (32-34) 06/10/22 05:18 RDW 14.5 % (13.2-15.2) 06/10/22 05:18 Plt Count 165 K/mm3 (140-440) 06/11/22 05:06 Lymph % (Auto) 38.3 % (13.4-35.0) H 06/09/22 02:16 [place] % (Auto) 9.9 % (0.0-7.3) H 06/09/22 02:16 Eos % (Auto) 1.7 % (0.0-4.3) 06/09/22 02:16 Baso % (Auto) 1.0 % (0.0-1.8) 06/09/22 02:16 Lymph # (Auto) 1.7 K/mm3 (1.2-5.4) 06/09/22 02:16 [place] # (Auto) 0.4 K/mm3 (0.0-0.8) 06/09/22 02:16 Eos # (Auto) 0.1 K/mm3 (0.0-0.4) 06/09/22 02:16 Baso # (Auto) 0.0 K/mm3 (0.0-0.1) 06/09/22 02:16 Seg Neutrophils % 49.1 % (40.0-70.0) 06/09/22 02:16 Seg Neutrophils # 2.2 K/mm3 (1.8-7.7) 06/09/22 02:16 PT 14.9 Sec. (12.2-14.9) 06/09/22 10:21 INR 1.05 (0.87-1.13) 06/09/22 10:21 APTT 138.6 Sec. (24.2-36.6) H* 06/09/22 10:21 Heparin Anti-Xa Level 0.66 U.I./ml (0.3-0.7) 06/11/22 00:55 Sodium 137 mmol/L (137-145) 06/11/22 05:06 Potassium 4.5 mmol/L (3.6-5.0) 06/11/22 05:06 Chloride 104.9 mmol/L (98-107) 06/11/22 05:06 Carbon Dioxide 20 mmol/L (22-30) L 06/11/22 05:06 Anion Gap 17 mmol/L 06/11/22 05:06 BUN 19 mg/dL (9-20) 06/11/22 05:06 Creatinine 1.2 mg/dL (0.8-1.3) 06/11/22 05:06 Estimated GFR > 60 ml/min 06/11/22 05:06 BUN/Creatinine Ratio 16 % 06/11/22 05:06 Glucose 244 mg/dL (75-100) H 06/11/22 05:06 POC Glucose 233 mg/dL (70-105) H 06/10/22 21:07 Calcium 8.5 mg/dL (8.4-10.2) 06/11/22 05:06 Magnesium 2.20 mg/dL (1.7-2.3) 06/10/22 13:30 Total Bilirubin 0.40 mg/dL (0.1-1.2) 06/08/22 17:59 AST 17 units/L (5-40) 06/08/22 17:59 ALT 18 units/L (7-56) 06/08/22 17:59 Alkaline Phosphatase 77 units/L (35-129) 06/08/22 17:59 Total Protein 7.8 g/dL (6.3-8.2) 06/08/22 17:59 Albumin 4.5 g/dL (3.9-5) 06/08/22 17:59 Albumin/Globulin Ratio 1.4 % 06/08/22 17:59 TSH 3.030 mlU/mL (0.270-4.200) 06/10/22 13:30 Khalil/IV: Voiding Method Urinal Active Medications - Current Medications Current Medications: Generic Name Dose Route Start Last Admin Trade Name Freq PRN Reason Stop Dose Admin Acetaminophen 650 mg 06/08/22 17:35 06/09/22 20:46 Acetaminophen 325 Mg Tab PO 650 mg Q6H PRN Administration Pain MILD(1-3)/Fever >100.5/PACHECO Albuterol 2.5 mg 06/08/22 17:35 Albuterol 2.5 Mg/3 Ml Nebu IH Q3HRT PRN Shortness Of Breath Amlodipine Besylate 5 mg 06/09/22 10:00 06/10/22 10:21 Amlodipine 5 Mg Tab PO 5 mg DAILY DARRYL Administration Cetirizine HCl 10 mg 06/09/22 10:00 06/10/22 10:21 Cetirizine 10 Mg Tab PO 10 mg DAILY DARRYL Administration Dextrose 50 ml 06/09/22 12:27 Dextrose 50% In Water (25gm) 50 Ml Syringe IV Q30MIN PRN Hypoglycemia Protocol Donepezil HCl 10 mg 06/08/22 22:00 06/10/22 21:10 Donepezil 10 Mg Tab PO 10 mg QHS DARRYL Administration Famotidine 20 mg 06/10/22 10:00 06/10/22 10:21 Famotidine 20 Mg Tab PO 20 mg QDAY DARRYL Administration Heparin Sodium (Porcine) 2,900 unit 06/09/22 08:32 Heparin 10,000 Units/10 Ml Vial 40 unit/kg (2900 unit) IV Q6H PRN Anti-Xa Assay < 0.1 units/ml Hydromorphone HCl 0.5 mg 06/08/22 17:35 06/10/22 15:19 Hydromorphone 0.5 Mg/0.5 Ml Inj IV 0.5 mg Q6H PRN Administration Pain , Severe (7-10) Sodium Chloride 1,000 mls @ 50 mls/hr 06/08/22 17:45 06/10/22 21:11 Nacl 0.9% 1000 Ml IV 50 mls/hr DIRECT DARRYL Administration Heparin Sodium/Sodium Chloride 25,000 unit in 500 mls @ 21 mls/hr 06/08/22 18:00 06/11/22 01:44 Heparin/ 0.45% Nacl-25,000 Unit/500 Ml IV 1,000 units/hr TITR DARRYL 20 mls/hr Titration Protocol 1,050 UNITS/HR Insulin Glargine 10 units 06/10/22 22:00 06/10/22 21:31 Insulin Glargine 100 Units/Ml SUB-Q 10 units QHS DARRYL Administration Insulin Human Lispro 0 unit 06/09/22 16:30 06/10/22 21:31 Insulin Lispro 100 Unit/Ml SUB-Q 4 unit ACHS DARRYL Administration Protocol Lisinopril 20 mg 06/09/22 10:00 06/10/22 10:21 Lisinopril 20 Mg Tab PO 20 mg QDAY DARRYL Administration Miscellaneous Medication 50 mg 06/08/22 22:00 06/09/22 06:16 Fluvoxamine Maleate [Fluvoxamine Maleate] PO Not Given QHS DARRYL Oxycodone/Acetaminophen 1 tab 06/08/22 17:35 06/10/22 21:32 Oxycodone /Acetaminophen 5-325mg Tab PO 1 tab Q6H PRN Administration Pain, Moderate (4-6) Risperidone 4 mg 06/08/22 22:00 06/10/22 21:11 Risperidone 1 Mg Tab PO 4 mg QHS DARRYL Administration Sodium Chloride 10 ml 06/08/22 22:00 06/10/22 21:11 Sodium Chloride 0.9% 10 Ml Flush Syringe IV 10 ml BID DARRYL Administration Sodium Chloride 10 ml 06/08/22 17:35 06/10/22 01:27 Sodium Chloride 0.9% 10 Ml Flush Syringe IV 10 ml PRN PRN Administration LINE FLUSH Trazodone HCl 200 mg 06/08/22 22:00 06/10/22 21:10 Trazodone 100 Mg Tab PO 200 mg QHS DARRYL Administration
[2022-06-10] MEDS: DONEPEZIL 10 MG TAB PO SCH (21:10)
[2022-06-10] MEDS: traZODone 100 MG TAB PO SCH (21:10)
[2022-06-10] MEDS: risperiDONE 1 MG TAB PO SCH (21:11)
[2022-06-10] MEDS: HEPARIN/ 0.45% NACL DRIP 25,000 UNIT/500 ML BAG IV SCH (21:11)
[2022-06-10] MEDS: oxyCODONE /ACETAMINOPHEN 5-325MG TAB PO PRN (21:32)
[2022-06-10] MEDS ORDERED: INSULIN GLARGINE 100 UNITS/ML SUB-Q SCH ×2 (22:00)
[2022-06-11 05:35] LABS: Hematocrit 39.2 % (35.5-45.6); Hemoglobin 13.2 gm/dl (11.8-15.2)
[2022-06-11 05:51] LABS: BUN/Creatinine Ratio 16; Blood Urea Nitrogen 19 mg/dL (9-20); Calcium 8.5 mg/dL (8.4-10.2); Hemolysis Index 7
[2022-06-11] MEDS: amLODIPine 5 MG TAB PO SCH (10:00)
[2022-06-11] MEDS: LISINOPRIL 20 MG TAB PO SCH (10:00)
[2022-06-11] MEDS: FAMOTIDINE 20 MG TAB PO SCH (10:00)
[2022-06-11] MEDS: INSULIN LISPRO 100 UNIT/ML SUB-Q SCH ×6 (10:00→21:22)
[2022-06-11] MEDS: CETIRIZINE 10 MG TAB PO SCH (10:00)
--- NOTE | 2022-06-11 10:01 | Electrocardiograph Report ---
[facility] Test Date: 2022-06-10 Test Time: 07:32:41 Pat Name: MUNIR CAMPOS Department: Room: A266 1 Gender: M Nurse Midwife/Clinical Instructor: KALEY : 1945 Requested By: JUAN DAVID CUENCA Order Number: [id number] Reading MD: Hasmukh Epstein Measurements Intervals [place] Rate: 37 P: 264 TX: 232 QRS: -64 QRSD: 143 T: -53 QT: 588 QTc: 461 Interpretive Statements Sinus or ectopic atrial bradycardia Prolonged TX interval Left bundle branch block No previous ECG available for comparison Electronically Signed On 06-11-2022 10:01:19 EDT by Hasmukh Epstein
[2022-06-11] MEDS ORDERED: HEPARIN/NS 5000 UNIT/500ML 500 ML IR ONE ×2 (12:48→15:07)
[2022-06-11] MEDS ORDERED: HEPARIN/ 0.45% NACL DRIP 25,000 UNIT/500 ML BAG ONE (12:48)
[2022-06-11] MEDS ORDERED: SODIUM CHLORIDE 0.9% 1000 ML 1,000 ML ONE ×2 (12:48→14:54)
[2022-06-11] MEDS ORDERED: HEPARIN 10,000 UNITS/10 ML VIAL ONE (12:49)
[2022-06-11] MEDS ORDERED: WATER FOR INJ Sterile (PF) 10 ML ONE (13:05)
[2022-06-11] MEDS ORDERED: ALTEPLASE 2 MG INJ ONE (13:05)
[2022-06-11] MEDS: LIDOCAINE 2%/EPINEPHRINE 1:200,000 VIAL (20 ML) INFILTRATI ONE ×2 (13:20→14:24)
[2022-06-11] MEDS: MIDAZOLAM 2 MG/2 ML INJ ONE ×2 (13:20→14:20)
[2022-06-11] MEDS: fentaNYL 100 MCG/2 ML INJ ONE ×2 (13:20→14:20)
[2022-06-11] MEDS: SODIUM CHLORIDE 0.9% 1000 ML 1,000 ML IV SCH (13:22)
[2022-06-11] MEDS ORDERED: ONDANSETRON 4 MG/2 ML INJ IV PRN (14:10)
[2022-06-11] MEDS ORDERED: SODIUM CHLORIDE 0.9% 1000 ML 1,000 ML EKOSCLUMEN SCH (14:15)
[2022-06-11] MEDS ORDERED: SODIUM CHLORIDE 0.9% 1000 ML 1,000 ML IV SCH (14:15)
[2022-06-11] MEDS ORDERED: SODIUM CHLORIDE 0.9% 1000 ML 1,000 ML SHEATH SCH (14:15)
[2022-06-11] MEDS ORDERED: HYDROmorphone 0.5 MG/0.5 ML INJ IV PRN (14:16)
[2022-06-11] MEDS ORDERED: ALTEPLASE 20 MG in SODIUM CHLORIDE 0.9% 500 ML 500 ML EKOSDLUMEN STA (14:19)
[2022-06-11] MEDS: HEPARIN 10,000 UNITS/10 ML VIAL ONE ×2 (14:34→15:24)
--- NOTE | 2022-06-11 14:58 | Progress Note ---
Assessment and Plan Pt is a 77-year-old AA male with a hx of HTN, DM2, chronic sinus bradycardia, cerebral atherosclerosis, vascular dementia, and schizophrenia who is currently admitted per Vasc Surg recs for SFA occlusion. Chronic Sinus Bradycardia ?Intermittent Junctional Rhythm PVD / SFA Occlusion PATRICIA HTN DM2 Cerebral Atherosclerosis Vascular Dementia Schizophrenia Echo 06/10/2022-EF 65 to 70%. Borderline concentric LVH. Right ventricle is normal in size. Right ventricle systolic function is normal. There is mild tricuspid regurgitation Plan: Per documentation patient for vascular intervention later today Avoid AV pham blocking agents. Unclear why pt was prescribed Carvedilol as an outpatient. He is not on a BB per his Pump Service Supervisor @ [facility] (Dr. Haas). No appreciable indication for BB. TSH and MG wiere within normal limits No cardiac contraindications to proceeding with vascular intervention as planned. Pt seen in conjunction with Dr. Adriano Epstein, who agrees with the assessment and plan of care. - Patient Problems (1) Arterial occlusion, lower extremity Current Visit: Yes Status: Acute (2) Hyperkalemia Current Visit: Yes Status: Acute (3) Ischemia of left lower extremity Current Visit: Yes Status: Acute (4) Sinus bradycardia Current Visit: Yes Status: Chronic (5) Cerebral atherosclerosis Current Visit: No Status: Acute (6) Hypertension Current Visit: No Status: Acute Qualifiers: Hypertension type: primary hypertension Qualified Code(s): I10 - Essential (primary) hypertension (7) Schizophrenia Current Visit: No Status: Acute Qualifiers: Schizophrenia type: unspecified Qualified Code(s): F20.9 - Schizophrenia, unspecified (8) Vascular dementia with behavioral disturbance Current Visit: No Status: Acute Subjective Date of service: 06/11/22 Principal diagnosis: PVD with subacute arterial occlusion of his left SFA Interval history: Patient resting in bed in no acute distress. Patient reports feeling well with no complaints Sinus bradycardia 40s to 50s Objective Vital Signs Temp Pulse Pulse Resp BP Pulse Ox 06/11/22 12:41 43 L 15 183/62 100 06/11/22 12:31 41 L 12 183/62 99 06/11/22 12:21 38 L 15 183/62 99 06/11/22 12:11 40 L 16 183/62 99 06/11/22 12:00 42 L 18 179/68 99 06/11/22 11:51 39 L 13 179/68 99 06/11/22 11:47 97.8 F 06/11/22 11:41 39 L 15 179/68 100 06/11/22 11:31 44 L 14 179/68 100 06/11/22 11:21 38 L 13 179/68 99 06/11/22 11:11 44 L 9 L 179/68 100 06/11/22 11:01 44 L 11 L 179/68 100 06/11/22 11:00 49 L 100 06/11/22 10:51 46 L 14 181/62 100 06/11/22 10:41 40 L 11 L 181/62 99 06/11/22 10:31 41 L 11 L 170/62 99 06/11/22 10:21 50 L 12 170/62 98 06/11/22 10:11 37 L 11 L 170/62 99 06/11/22 10:01 36 L 13 181/62 99 06/11/22 10:00 48 L 06/11/22 09:51 39 L 13 170/62 99 06/11/22 09:41 58 L 15 170/62 100 06/11/22 09:31 37 L 11 L 170/62 99 06/11/22 09:21 39 L 13 170/62 99 06/11/22 09:11 39 L 12 170/62 100 06/11/22 09:01 39 L 12 170/62 98 06/11/22 08:51 40 L 13 176/131 99 06/11/22 08:41 40 L 12 176/131 99 06/11/22 08:31 40 L 12 176/131 99 06/11/22 08:20 39 L 13 165/55 98 06/11/22 08:11 42 L 13 176/131 99 06/11/22 08:01 39 L 11 L 176/131 97 06/11/22 07:51 41 L 12 188/60 98 06/11/22 07:41 41 L 11 L 188/60 99 06/11/22 07:31 38 L 11 L 188/60 99 06/11/22 07:21 44 L 14 188/60 99 06/11/22 07:17 98.2 F 06/11/22 07:11 38 L 11 L 188/60 99 06/11/22 07:01 42 L 12 188/60 97 06/11/22 07:00 48 L 100 06/11/22 06:51 38 L 9 L 140/83 98 06/11/22 06:41 40 L 11 L 140/83 98 06/11/22 06:31 38 L 11 L 140/83 97 06/11/22 06:21 40 L 11 L 140/83 98 06/11/22 06:11 40 L 11 L 140/83 98 06/11/22 06:00 68 10 L 140/83 97 06/11/22 05:51 42 L 10 L 165/55 99 06/11/22 05:41 46 L 10 L 165/55 98 06/11/22 05:31 39 L 11 L 165/55 98 06/11/22 05:21 39 L 11 L 165/55 97 06/11/22 05:15 98.6 F 06/11/22 05:11 43 L 11 L 165/55 98 06/11/22 05:01 39 L 11 L 165/55 96 06/11/22 04:51 39 L 11 L 165/55 99 06/11/22 04:41 52 L 12 165/55 98 06/11/22 04:31 40 L 10 L 165/55 98 06/11/22 04:21 40 L 11 L 165/55 98 06/11/22 04:11 39 L 12 165/55 98 06/11/22 04:01 39 L 11 L 165/55 97 06/11/22 03:51 40 L 10 L 167/52 99 06/11/22 03:41 43 L 12 167/52 98 06/11/22 03:31 39 L 11 L 167/52 98 06/11/22 03:21 39 L 12 167/52 98 06/11/22 03:11 40 L 12 167/52 98 06/11/22 03:01 39 L 9 L 167/52 96 06/11/22 02:51 39 L 11 L 162/58 96 06/11/22 02:41 38 L 11 L 162/58 97 06/11/22 02:31 37 L 11 L 162/58 98 06/11/22 02:30 100 06/11/22 02:21 39 L 12 162/58 97 06/11/22 02:11 40 L 9 L 162/58 98 06/11/22 02:01 38 L 10 L 162/58 95 06/11/22 01:51 38 L 9 L 159/54 98 06/11/22 01:41 38 L 10 L 159/54 98 06/11/22 01:31 38 L 11 L 159/54 98 06/11/22 01:21 40 L 11 L 159/54 96 06/11/22 01:10 38 L 13 159/54 96 06/11/22 01:00 42 L 11 L 137/51 96 06/11/22 00:51 38 L 10 L 137/51 97 06/11/22 00:41 38 L 10 L 137/51 98 06/11/22 00:31 39 L 11 L 137/51 97 06/11/22 00:21 40 L 11 L 137/51 97 06/11/22 00:11 40 L 12 137/51 95 06/11/22 00:08 99 F 06/11/22 00:00 41 L 12 137/51 94 06/10/22 23:51 40 L 11 L 129/71 98 06/10/22 23:41 43 L 13 129/71 98 06/10/22 23:31 39 L 10 L 129/71 98 06/10/22 23:21 46 L 11 L 129/71 98 06/10/22 23:11 47 L 14 129/71 98 06/10/22 23:07 47 L 13 129/71 99 06/10/22 23:00 47 L 13 129/71 98 06/10/22 22:51 43 L 14 160/53 98 06/10/22 22:41 46 L 12 160/53 98 06/10/22 22:31 44 L 13 160/53 99 06/10/22 22:21 44 L 15 160/53 98 06/10/22 22:11 42 L 14 160/53 98 06/10/22 22:01 44 L 15 160/53 97 06/10/22 21:51 46 L 16 155/53 99 06/10/22 21:41 44 L 16 155/53 98 06/10/22 21:35 45 L 06/10/22 21:31 45 L 15 155/53 99 06/10/22 21:21 50 L 19 155/53 99 06/10/22 21:11 44 L 19 155/53 99 06/10/22 21:10 99.2 F 06/10/22 21:01 42 L 14 155/53 98 06/10/22 20:51 45 L 15 146/53 98 06/10/22 20:41 42 L 17 146/53 99 06/10/22 20:31 47 L 16 146/53 97 06/10/22 20:21 55 L 15 146/53 98 06/10/22 20:11 42 L 13 146/53 96 06/10/22 20:01 40 L 14 146/53 98 06/10/22 19:51 43 L 20 156/58 100 06/10/22 19:41 43 L 9 L 156/58 99 06/10/22 19:31 41 L 15 156/58 100 06/10/22 19:21 41 L 15 156/58 100 06/10/22 19:11 40 L 16 156/58 99 06/10/22 19:00 43 L 13 162/44 98 06/10/22 18:51 43 L 17 162/44 98 06/10/22 18:40 47 L 13 162/44 98 06/10/22 18:31 40 L 14 162/44 98 06/10/22 18:21 42 L 15 162/44 99 06/10/22 18:11 42 L 15 162/44 99 06/10/22 18:01 42 L 15 162/44 99 06/10/22 18:00 98.2 F 06/10/22 17:51 43 L 17 157/54 99 06/10/22 17:41 42 L 17 157/54 99 06/10/22 17:31 44 L 14 157/54 97 06/10/22 17:21 46 L 14 157/54 99 06/10/22 17:11 51 L 20 157/54 99 06/10/22 17:01 49 L 19 157/54 99 06/10/22 16:51 48 L 19 148/64 98 06/10/22 16:41 48 L 16 148/64 98 06/10/22 16:31 45 L 13 148/64 95 06/10/22 16:21 44 L 16 148/64 98 06/10/22 16:11 41 L 15 148/64 100 06/10/22 16:01 37 L 10 L 148/64 98 06/10/22 15:51 38 L 13 172/69 100 06/10/22 15:41 40 L 10 L 172/69 99 06/10/22 15:31 39 L 11 L 172/69 100 06/10/22 15:21 46 L 18 100 06/10/22 15:17 50 L 20 100 06/10/22 15:11 49 L 15 100 06/10/22 15:01 61 20 97 - Physical Examination General: No Apparent Distress HEENT: Positive: EOMI, Normocephaly Neck: Positive: neck supple, trachea midline. Negative: JVD/HJR Cardiac: Positive: Regular Rhythm, Bradycardia Lungs: Positive: Normal Breath Sounds Neuro: Positive: Grossly Intact Abdomen: Positive: Soft. Negative: Tender Skin: Negative: Rash Musculoskeletal: No Pain Extremities: Present: Cool (LLE). Absent: edema - Labs and Meds CBC 06/11/22 Range/Units 05:06 Hgb 13.2 (11.8-15.2) gm/dl Hct 39.2 (35.5-45.6) % Plt Count 165 (140-440) K/mm3 Comprehensive Metabolic Panel 06/11/22 Range/Units 05:06 Sodium 137 (137-145) mmol/L Potassium 4.5 (3.6-5.0) mmol/L Chloride 104.9 (98-107) mmol/L Carbon Dioxide 20 L (22-30) mmol/L BUN 19 (9-20) mg/dL Creatinine 1.2 (0.8-1.3) mg/dL Glucose 244 H (75-100) mg/dL Calcium 8.5 (8.4-10.2) mg/dL - Imaging and Cardiology EKG: report reviewed, image reviewed Echo: report reviewed - Telemetry EKG Rhythm: Sinus Bradycardia - EKG Sinus rhythms and dysrhythmias: sinus bradycardia AV and intraventricular conduction: 1 AV block Repolarization changes or abnormalities: nonspecific abnormality, ST segment, and/or T wave
[2022-06-11] MEDS ORDERED: HEPARIN/ 0.45% NACL DRIP 25,000 UNIT/500 ML BAG SHEATH SCH (15:00)
[2022-06-11] MEDS ORDERED: CLINDAMYCIN 600 MG/50 mL 600 MG/50 ML BAG IV SCH (15:00)
--- NOTE | 2022-06-11 15:53 | Operative Report ---
Operative Report Operative Report: EXAM: 1. Ultrasound-guided access of the right common femoral artery. 2. Angiography of the right lower extremity. 3. Selection of the abdominal aorta with angiography. 4. Selection of the left external iliac artery, and superficial femoral artery with angiography of the left lower extremity. 5. Selection of the left popliteal artery, tibioperoneal trunk, and peroneal artery with angiography of the left lower extremity. 6. Angioplasty of the left superficial femoral artery, popliteal artery, tibioperoneal trunk, and proximal peroneal artery with a 2 mm x 220 mm angioplasty balloon. 7. Infusion of 1 mg of tPA in the left peroneal artery. 8. Fluoroscopic guided placement of a 50 cm EKOS by 135 cm shaft thrombolytic catheter in the left lower extremity extending from the left superficial femoral artery to the left peroneal artery. DATE: 06/11/2022 TREASURY ANALYST: FERNANDO SILVESTRE MD INDICATION: Thrombus in the left lower extremity with pain, decreased sensation, and Singh 2A status for multiple weeks. MEDICATIONS: Please see nursing report for full details. DEVICES: 2 mm x 220 mm angioplasty balloon 50 cm x 135 cm thrombolytic EKOS catheter. CONTRAST: Please see Card Painter report for full details. PROCEDURE: The risks, benefits, and alternatives were discussed with the patient; written informed consent was obtained. The patient's groins were prepped and draped in a sterile fashion. Ultrasound was used to evaluate the right common femoral artery which was patent. Under direct ultrasound guidance, the right common femoral artery was accessed with a 21-gauge micropuncture needle. 0.018 inch wire was passed into the aorta. Needle was exchanged for transitional dilator. Wire was exchanged for a 0.035 inch wire. Transitional dilator was exchanged for 5 [place] sheath. Digital subtraction angiography was performed demonstrating an appropriate puncture, above the bifurcation and below the inferior epigastric artery. The right external iliac artery, common femoral artery, profunda femoral artery, and proximal superficial femoral artery were patent. The abdominal aorta was selected and digital subtraction angiography was performed. The infrarenal abdominal aorta, bilateral external iliac arteries, bilateral internal iliac arteries patent, and bilateral common iliac arteries were patent. The left external iliac artery was selected. The left superficial femoral artery was selected. Digital subtraction angiography was performed. Digital subtraction angiography demonstrated patency of the left common femoral artery, and profunda femoral artery. There was scattered thrombus in the left proximal superficial femoral artery, there was occlusive thrombus in the left mid and distal superficial femoral artery and popliteal artery, and occlusion of all proximal tibial vessels. The proximal to mid peroneal artery had reconstitution which then provided flow to the distal anterior tibial artery which provide flow to the foot. The peroneal artery provided flow to the foot through collaterals. There is extensive thrombus. The patient was heparinized. Sheath was exchanged for 6 [place] Islander 45 cm Dellrose destination positioned in the left proximal most superficial femoral artery. Wire and catheter used to cross the superficial femoral artery and popliteal artery. There is a more chronic component in the tibial vessels and the proximal peroneal artery was then entered with a combination of wires and catheters. Digital subtraction angiography was performed demonstrating severe underlying 60 and 70 and 80% stenoses of the proximal to mid peroneal artery with less than 20% stenosis in the distal peroneal artery. The reconstituted distal anterior tibial artery had less than 20% stenosis and the dorsalis pedis had less than 20% narrowing. The posterior tibial artery did not reconstitute. 2 mm x 220 mm angioplasty balloon was used to perform angioplasty for predilatation of the mid peroneal artery, proximal peroneal artery, tibioperoneal trunk, popliteal artery, and entire superficial femoral artery to allow for Thrombolytic catheter placement. Afterwards, a 0.035 inch trailblazer was advanced over the wire and exchanged for a Glidewire advantage. 50 cm x 135 cm EKOS thrombolytic catheter was advanced over the wire and into the peroneal artery. Digital subtraction angiography was performed demonstrating appropriate positioning of the catheter. 1 mg of tPA was infused through the catheter. Thrombolytic wire was then placed and 3 mg of tPA were infused through the drug port of the catheter. The catheter was sutured in place. The sheath was heparinized with 2000 units of heparin. The thrombolytic catheter was secured in place. The patient tolerated the procedure well. No immediate postprocedural complications. The patient was brought to the ICU in stable condition. Patient will be brought back tomorrow for further treatment. FINDINGS: Please see procedure note above. IMPRESSION: 1. Successful angioplasty of the left superficial femoral artery, popliteal artery, tibioperoneal trunk, and proximal peroneal artery. 2. Successful placement of the thrombolytic catheter in the left lower extremity.
--- NOTE | 2022-06-11 17:37 | Progress Note ---
<GIULIA WHYTE - Last Filed: 06/11/22 17:37> Assessment and Plan Assessment and plan: This is a 77-year-old male with vascular dementia with behavior disturbance, cerebralatherosclerosis, schizophrenia, DM, HTN And PVD admitted with subacute SFA occlusion Neuro: h/o vascular dementia with behavior disturbance, schizophrenia, cerebralatherosclerosis -Reorientation as needed -Maintain sleep-wake cycle -As needed analgesia -CT head -Resume risperdal, trazadone, aricept, fluvoxamine maleate Cardiac: ho chronic SB, intermittent junctional rhythm, HTN -Cardiology consulted, appreciate recommendations -Blood pressure monitoring per protocol -Antihypertension regimen: amlodipine, lisinopril -Per cardio: Avoid AV pham blocking agents. TSH and MG wiere within normal limits -No cardiac contraindications to proceeding with vascular intervention as planned. -Echocardiogram EF 65 to 70%. Borderline concentric LVH. Respiratory: NAD, Right upper lobe -CCM consulted, appreciate recommendations -Pulmanory hygenie -Sp O2 monitoring per protocol -Noted on CTA, single incidental pulmonary nodule(s) in the right upper lobe measuring 5 mm with solid characteristics. -Follow up outpatient for further eval GI: NAD -24 hours -236 mL -PPI -CC diet -BR: colace : Acute kidney injury likely secondary to vasomotor nephropathy, metabolic acidosis, hypomag -Monitor intake and output -Renally dose medications -s/p IVF -Avoid nephrotoxic medications -Repelte Mag -Trend BMP ID: NAD -Antibiotic therapy with clindamycin -Monitor WBC and temperature curve Endo: h/o DM -CC diet -Avoid hypoglycemia -SSI -Accu-Cheks q. ACHS -Long-acting insulin, titrate as needed -Resume home lispro 8 units AC Heme: Subacute SVF occlusion -Vascular surgery consulted, appreciate recommendations -CTA abd/pelvis/lower extremites showed occluded left femoral, popliteal, tibiofemoral trunk likely from embolic disease, two-vessel runoffs bilaterally -s/p successful placement of the thrombolytic catheter in the left lower extremi ty. -Heparin gtt -Trend CBC -Transfuse hemoglobin less than 7 -SCDs to BLE while in bed The high probability of a clinically significant, sudden or life threatening deterioration of the [multiple] system(s) required my full and direct attention, intervention and personal management. The aggregate critical care time was [60] minutes. This time is in addition to time spent performing reported procedures but includes the following: [x] Data Review and interpretation [x] Patient assessment and monitoring of vital signs [x] Documentation [x] Medication orders and management Disposition Plan: icu Total Time Spent with Patient (Minutes): 60 History Interval history: This is a 77-year-old male with vascular dementia with behavior disturbance, CVA, cerebral atherosclerosis, schizophrenia, DM, HTN, PVD who presented to emergency department on 06/08 with complaints of left foot pain over the past 3 weeks and discoloration from his vascular surgeon's office where he was found to have left lower extremity ischemia via private vehicle. Patient was initially on heparin drip, vascular surgery team was consulted patient was admitted to the hospital service in [facility] with a subacute SFA occlusion. Hospital Course to Date: 06/09: Remains on heaprin gtt per protocol. Vascular Surgery recommendations noted, plan for possible revascularization procedure likely on Saturday. Patient also noted with SB, HR in the 30s. Home BB held, cardiology also consulted for further eval and clearance for possible vascular procedure. 06/10: Remains stable on RA. Heparin gtt per protocol. Per Vascular surgery plan for River Tester for placement of EKOS catheter with possible other intervention tomorrow, N.p.o. after midnight. Remains in bradycardic, BP stable, Cardiology recommendations noted. SSI adjusted and Lantus Qhs added for hyperglycemia. 06/11: S/p EKOS to left lower extremity, transferred to ICU postprocedure. Increase in Lantus and restarted lispro 8 units AC and IV hydralazine as needed ordered. Hospitalist Physical - Constitutional Vitals: Temp Pulse Resp BP Pulse Ox 99.2 F 56 L 13 163/57 99 06/11/22 16:00 06/11/22 17:15 06/11/22 17:15 06/11/22 17:15 06/11/22 17:15 General appearance: Present: no acute distress - EENT Eyes: Present: PERRL, EOM intact ENT: hearing intact, clear oral mucosa, dentition normal - Neck Neck: Present: normal ROM - Respiratory Respiratory effort: normal Respiratory: bilateral: CTA - Cardiovascular Rhythm: regular Heart Sounds: Present: S1 & S2. Absent: systolic murmur, diastolic murmur - Extremities Extremity abnormal: cold, pulses diminished, tenderness - Peripheral Assessment Left Lower Extremity Capillary Refill: Immediate Skin Temperature: Cool Peripheral Pulses: abnormal - Peripheral pulses posterial tibial Pulse Strength: 1+ (Doppler) dorsalis pedis Pulse Strength: 1+ (Doppler) - Abdominal General gastrointestinal: soft, non-tender, non-distended, normal bowel sounds - Integumentary Integumentary: Present: warm, dry - Psychiatric Psychiatric: cooperative - Neurologic Neurologic: CNII-XII intact, no focal deficits, moves all extremities - Allied Health Allied health notes reviewed: nursing, RT, social work Results - Labs CBC & Chem 7: 06/11/22 05:06 06/11/22 05:06 Labs: Laboratory Last Values WBC 4.7 K/mm3 (4.5-11.0) 06/10/22 05:18 RBC 4.55 M/mm3 (3.65-5.03) 06/10/22 05:18 Hgb 13.2 gm/dl (11.8-15.2) 06/11/22 05:06 Hct 39.2 % (35.5-45.6) 06/11/22 05:06 MCV 92 fl (84-94) 06/10/22 05:18 MCH 30 pg (28-32) 06/10/22 05:18 MCHC 33 % (32-34) 06/10/22 05:18 RDW 14.5 % (13.2-15.2) 06/10/22 05:18 Plt Count 165 K/mm3 (140-440) 06/11/22 05:06 Lymph % (Auto) 38.3 % (13.4-35.0) H 06/09/22 02:16 [place] % (Auto) 9.9 % (0.0-7.3) H 06/09/22 02:16 Eos % (Auto) 1.7 % (0.0-4.3) 06/09/22 02:16 Baso % (Auto) 1.0 % (0.0-1.8) 06/09/22 02:16 Lymph # (Auto) 1.7 K/mm3 (1.2-5.4) 06/09/22 02:16 [place] # (Auto) 0.4 K/mm3 (0.0-0.8) 06/09/22 02:16 Eos # (Auto) 0.1 K/mm3 (0.0-0.4) 06/09/22 02:16 Baso # (Auto) 0.0 K/mm3 (0.0-0.1) 06/09/22 02:16 Seg Neutrophils % 49.1 % (40.0-70.0) 06/09/22 02:16 Seg Neutrophils # 2.2 K/mm3 (1.8-7.7) 06/09/22 02:16 PT 14.9 Sec. (12.2-14.9) 06/09/22 10:21 INR 1.05 (0.87-1.13) 06/09/22 10:21 APTT 138.6 Sec. (24.2-36.6) H* 06/09/22 10:21 Heparin Anti-Xa Level 0.59 U.I./ml (0.3-0.7) 06/11/22 08:31 Sodium 137 mmol/L (137-145) 06/11/22 05:06 Potassium 4.5 mmol/L (3.6-5.0) 06/11/22 05:06 Chloride 104.9 mmol/L (98-107) 06/11/22 05:06 Carbon Dioxide 20 mmol/L (22-30) L 06/11/22 05:06 Anion Gap 17 mmol/L 06/11/22 05:06 BUN 19 mg/dL (9-20) 06/11/22 05:06 Creatinine 1.2 mg/dL (0.8-1.3) 06/11/22 05:06 Estimated GFR > 60 ml/min 06/11/22 05:06 BUN/Creatinine Ratio 16 % 06/11/22 05:06 Glucose 244 mg/dL (75-100) H 06/11/22 05:06 POC Glucose 224 mg/dL (70-105) H 06/11/22 16:41 Calcium 8.5 mg/dL (8.4-10.2) 06/11/22 05:06 Magnesium 2.20 mg/dL (1.7-2.3) 06/10/22 13:30 Total Bilirubin 0.40 mg/dL (0.1-1.2) 06/08/22 17:59 AST 17 units/L (5-40) 06/08/22 17:59 ALT 18 units/L (7-56) 06/08/22 17:59 Alkaline Phosphatase 77 units/L (35-129) 06/08/22 17:59 Total Protein 7.8 g/dL (6.3-8.2) 06/08/22 17:59 Albumin 4.5 g/dL (3.9-5) 06/08/22 17:59 Albumin/Globulin Ratio 1.4 % 06/08/22 17:59 TSH 3.030 mlU/mL (0.270-4.200) 06/10/22 13:30 Khalil/IV: Voiding Method Urinal Active Medications - Current Medications Current Medications: Generic Name Dose Route Start Last Admin Trade Name Freq PRN Reason Stop Dose Admin Acetaminophen 650 mg 06/08/22 17:35 06/09/22 20:46 Acetaminophen 325 Mg Tab PO 650 mg Q6H PRN Administration Pain MILD(1-3)/Fever >100.5/PACHECO Hydrocodone Bitart/Acetaminophen 2 each 06/11/22 14:10 Hydrocodone/Acetaminophen 5-325 Mg Tab PO Q6H PRN Pain, Moderate (4-6) Albuterol 2.5 mg 06/08/22 17:35 Albuterol 2.5 Mg/3 Ml Nebu IH Q3HRT PRN Shortness Of Breath Amlodipine Besylate 5 mg 06/09/22 10:00 06/11/22 10:00 Amlodipine 5 Mg Tab PO Not Given DAILY DARRYL Cetirizine HCl 10 mg 06/09/22 10:00 06/11/22 10:00 Cetirizine 10 Mg Tab PO Not Given DAILY DARRYL Dextrose 50 ml 06/09/22 12:27 Dextrose 50% In Water (25gm) 50 Ml Syringe IV Q30MIN PRN Hypoglycemia Protocol Donepezil HCl 10 mg 06/08/22 22:00 06/10/22 21:10 Donepezil 10 Mg Tab PO 10 mg QHS DARRYL Administration Famotidine 20 mg 06/10/22 10:00 06/11/22 10:00 Famotidine 20 Mg Tab PO Not Given QDAY DARRYL Heparin Sodium (Porcine) 2,900 unit 06/09/22 08:32 Heparin 10,000 Units/10 Ml Vial 40 unit/kg (2900 unit) IV Q6H PRN Anti-Xa Assay < 0.1 units/ml Hydralazine HCl 10 mg 06/11/22 10:05 Hydralazine 20 Mg/1 Ml Inj IV Q4HR PRN Hypertension Hydromorphone HCl 0.5 mg 06/11/22 14:16 Hydromorphone 0.5 Mg/0.5 Ml Inj IV Q2H PRN Pain , Severe (7-10) Sodium Chloride 1,000 mls @ 50 mls/hr 06/08/22 17:45 06/11/22 13:22 Nacl 0.9% 1000 Ml IV 50 mls/hr DIRECT DARRYL Administration Sodium Chloride 1,000 mls @ 30 mls/hr 06/11/22 14:15 Nacl 0.9% 1000 Ml IV DIRECT DARRYL Alteplase, Recombinant 20 mg/ 500 mls @ 25 mls/hr 06/11/22 14:19 06/11/22 16:25 Sodium Chloride EKOSDLUMEN 06/12/22 10:18 25 mls/hr DIRECT STA Administration Sodium Chloride 1,000 mls @ 30 mls/hr 06/11/22 14:15 06/11/22 14:56 Nacl 0.9% 1000 Ml SHEATH 1,000 mls DIRECT DARRYL Administration Sodium Chloride 1,000 mls @ 35 mls/hr 06/11/22 14:15 06/11/22 16:27 Nacl 0.9% 1000 Ml EKOSCLUMEN 35 mls/hr DIRECT DARRYL Administration Heparin Sodium/Sodium Chloride 25,000 unit in 500 mls @ 10 mls/hr 06/11/22 15:00 06/11/22 16:26 Heparin/ 0.45% Nacl-25,000 Unit/500 Ml SHEATH 500 units/hr DIRECT DARRYL 10 mls/hr Administration Protocol 500 UNITS/HR Clindamycin HCl 600 mg in 50 mls @ 100 mls/hr 06/11/22 15:00 06/11/22 14:31 Cleocin 600 Mg/50 Ml IV 50 mls PREOP DARRYL Administration Protocol Insulin Glargine 15 units 06/11/22 22:00 Insulin Glargine 100 Units/Ml SUB-Q QHS DARRYL Insulin Human Lispro 0 unit 06/09/22 16:30 06/11/22 16:24 Insulin Lispro 100 Unit/Ml SUB-Q Not Given ACHS [facility] Protocol Insulin Human Lispro 8 unit 06/11/22 11:30 06/11/22 10:00 Insulin Lispro 100 Unit/Ml SUB-Q Not Given AC [facility] Lisinopril 20 mg 06/09/22 10:00 06/11/22 10:00 Lisinopril 20 Mg Tab PO Not Given QDAY DARRYL Miscellaneous Medication 50 mg 06/08/22 22:00 06/09/22 06:16 Fluvoxamine Maleate [Fluvoxamine Maleate] PO Not Given QHS DARRYL Ondansetron HCl 4 mg 06/11/22 14:10 Ondansetron 4 Mg/2 Ml Inj IV Q8H PRN Nausea And Vomiting Oxycodone/Acetaminophen 1 tab 06/08/22 17:35 06/10/22 21:32 Oxycodone /Acetaminophen 5-325mg Tab PO 1 tab Q6H PRN Administration Pain, Moderate (4-6) Risperidone 4 mg 06/08/22 22:00 06/10/22 21:11 Risperidone 1 Mg Tab PO 4 mg QHS DARRYL Administration Sodium Chloride 10 ml 06/08/22 22:00 06/11/22 10:00 Sodium Chloride 0.9% 10 Ml Flush Syringe IV Not Given BID DARRYL Sodium Chloride 10 ml 06/08/22 17:35 06/10/22 01:27 Sodium Chloride 0.9% 10 Ml Flush Syringe IV 10 ml PRN PRN Administration LINE FLUSH Trazodone HCl 200 mg 06/08/22 22:00 06/10/22 21:10 Trazodone 100 Mg Tab PO 200 mg QHS DARRYL Administration <SANTOS COBURN - Last Filed: 06/12/22 07:55> Assessment and Plan Assessment and plan: I saw and evaluated the patient. I agree with the findings and the plan of care as documented in the Nurse Practitioner's~note, with the following corrections and additions. Hospitalist Physical - Constitutional Vitals: Temp Pulse Resp BP Pulse Ox 99.6 F 51 L 18 177/56 97 06/12/22 07:08 06/12/22 06:01 06/12/22 06:01 06/12/22 06:01 06/12/22 06:01 Results - Labs CBC & Chem 7: 06/12/22 04:30 06/12/22 04:30 Labs: Laboratory Last Values WBC 5.7 K/mm3 (4.5-11.0) 06/12/22 04:30 RBC 4.16 M/mm3 (3.65-5.03) 06/12/22 04:30 Hgb 12.6 gm/dl (11.8-15.2) 06/12/22 04:30 Hct 37.9 % (35.5-45.6) 06/12/22 04:30 MCV 91 fl (84-94) 06/12/22 04:30 MCH 30 pg (28-32) 06/12/22 04:30 MCHC 33 % (32-34) 06/12/22 04:30 RDW 14.7 % (13.2-15.2) 06/12/22 04:30 Plt Count 147 K/mm3 (140-440) 06/12/22 04:30 Lymph % (Auto) 16.2 % (13.4-35.0) 06/12/22 00:29 [place] % (Auto) 11.7 % (0.0-7.3) H 06/12/22 00:29 Eos % (Auto) 0.4 % (0.0-4.3) 06/12/22 00: Baso % (Auto) 0.5 % (0.0-1.8) 06/12/22 00:29 Lymph # (Auto) 0.9 K/mm3 (1.2-5.4) L 06/12/22 00:29 [place] # (Auto) 0.7 K/mm3 (0.0-0.8) 06/12/22 00:29 Eos # (Auto) 0.0 K/mm3 (0.0-0.4) 06/12/22 00:29 Baso # (Auto) 0.0 K/mm3 (0.0-0.1) 06/12/22 00:29 Seg Neutrophils % 71.2 % (40.0-70.0) H 06/12/22 00:29 Seg Neutrophils # 4.0 K/mm3 (1.8-7.7) 06/12/22 00:29 PT 16.3 Sec. (12.2-14.9) H 06/11/22 16:54 INR 1.17 (0.87-1.13) H 06/11/22 16:54 APTT > 240.0 Sec. (24.2-36.6) H* 06/11/22 16:54 Fibrinogen 337 mg/dl (211-480) 06/12/22 00:29 Heparin Anti-Xa Level 0.16 U.I./ml (0.3-0.7) L 06/12/22 00:29 Sodium 141 mmol/L (137-145) 06/12/22 04:30 Potassium 3.8 mmol/L (3.6-5.0) 06/12/22 04:30 Chloride 112.5 mmol/L (98-107) H 06/12/22 04:30 Carbon Dioxide 18 mmol/L (22-30) L 06/12/22 04:30 Anion Gap 14 mmol/L 06/12/22 04:30 BUN 13 mg/dL (9-20) 06/12/22 04:30 Creatinine 1.1 mg/dL (0.8-1.3) 06/12/22 04:30 Estimated GFR > 60 ml/min 06/12/22 04:30 BUN/Creatinine Ratio 12 % 06/12/22 04:30 Glucose 198 mg/dL (75-100) H 06/12/22 04:30 POC Glucose 233 mg/dL (70-105) H 06/12/22 07:19 Calcium 7.7 mg/dL (8.4-10.2) L 06/12/22 04:30 Magnesium 2.20 mg/dL (1.7-2.3) 06/10/22 13:30 Total Bilirubin 0.40 mg/dL (0.1-1.2) 06/08/22 17:59 AST 17 units/L (5-40) 06/08/22 17:59 ALT 18 units/L (7-56) 06/08/22 17:59 Alkaline Phosphatase 77 units/L (35-129) 06/08/22 17:59 Total Protein 7.8 g/dL (6.3-8.2) 06/08/22 17:59 Albumin 4.5 g/dL (3.9-5) 06/08/22 17:59 Albumin/Globulin Ratio 1.4 % 06/08/22 17:59 TSH 3.030 mlU/mL (0.270-4.200) 06/10/22 13:30 Blood Type O POSITIVE 06/11/22 16:54 Antibody Screen Negative 06/11/22 16:54 Khalil/IV: Voiding Method Condom Catheter Active Medications - Current Medications Current Medications: Generic Name Dose Route Start Last Admin Trade Name Freq PRN Reason Stop Dose Admin Acetaminophen 650 mg 06/08/22 17:35 06/09/22 20:46 Acetaminophen 325 Mg Tab PO 650 mg Q6H PRN Administration Pain MILD(1-3)/Fever >100.5/PACHECO Hydrocodone Bitart/Acetaminophen 2 each 06/11/22 14:10 Hydrocodone/Acetaminophen 5-325 Mg Tab PO Q6H PRN Pain, Moderate (4-6) Albuterol 2.5 mg 06/08/22 17:35 Albuterol 2.5 Mg/3 Ml Nebu IH Q3HRT PRN Shortness Of Breath Amlodipine Besylate 10 mg 06/12/22 10:00 Amlodipine 10 Mg Tab PO QDAY DARRYL Cetirizine HCl 10 mg 06/09/22 10:00 06/11/22 10:00 Cetirizine 10 Mg Tab PO Not Given DAILY DARRYL Dextrose 50 ml 06/09/22 12:27 Dextrose 50% In Water (25gm) 50 Ml Syringe IV Q30MIN PRN Hypoglycemia Protocol Docusate Sodium 100 mg 06/11/22 22:00 06/11/22 21:20 Docusate Sodium 100 Mg Cap PO 100 mg BID DARRYL Administration Donepezil HCl 10 mg 06/08/22 22:00 06/11/22 21:20 Donepezil 10 Mg Tab PO 10 mg QHS DARRYL Administration Famotidine 20 mg 06/10/22 10:00 06/11/22 10:00 Famotidine 20 Mg Tab PO Not Given QDAY DARRYL Heparin Sodium (Porcine) 2,900 unit 06/09/22 08:32 Heparin 10,000 Units/10 Ml Vial 40 unit/kg (2900 unit) IV Q6H PRN Anti-Xa Assay < 0.1 units/ml Hydralazine HCl 10 mg 06/11/22 10:05 06/12/22 06:05 Hydralazine 20 Mg/1 Ml Inj IV 10 mg Q4HR PRN Administration Hypertension Hydralazine HCl 25 mg 06/12/22 14:00 Hydralazine 25 Mg Tab PO Q8HR DARRYL Hydromorphone HCl 0.5 mg 06/11/22 14:16 Hydromorphone 0.5 Mg/0.5 Ml Inj IV Q2H PRN Pain , Severe (7-10) Sodium Chloride 1,000 mls @ 50 mls/hr 06/08/22 17:45 06/11/22 13:22 Nacl 0.9% 1000 Ml IV 50 mls/hr DIRECT DARRYL Administration Sodium Chloride 1,000 mls @ 30 mls/hr 06/11/22 14:15 Nacl 0.9% 1000 Ml IV DIRECT DARRYL Alteplase, Recombinant 20 mg/ 500 mls @ 25 mls/hr 06/11/22 14:19 06/11/22 16:25 Sodium Chloride EKOSDLUMEN 06/12/22 10:18 25 mls/hr DIRECT STA Administration Sodium Chloride 1,000 mls @ 30 mls/hr 06/11/22 14:15 06/11/22 14:56 Nacl 0.9% 1000 Ml SHEATH 1,000 mls DIRECT DARRYL Administration Sodium Chloride 1,000 mls @ 35 mls/hr 06/11/22 14:15 06/11/22 16:27 Nacl 0.9% 1000 Ml EKOSCLUMEN 35 mls/hr DIRECT DARRYL Administration Heparin Sodium/Sodium Chloride 25,000 unit in 500 mls @ 10 mls/hr 06/11/22 15:00 06/11/22 16:26 Heparin/ 0.45% Nacl-25,000 Unit/500 Ml SHEATH 500 units/hr DIRECT DARRYL 10 mls/hr Administration Protocol 500 UNITS/HR Insulin Glargine 15 units 06/11/22 22:00 06/11/22 21:22 Insulin Glargine 100 Units/Ml SUB-Q 15 units QHS DARRYL Administration Insulin Human Lispro 0 unit 06/09/22 16:30 06/11/22 21:22 Insulin Lispro 100 Unit/Ml SUB-Q 4 unit ACHS DARRYL Administration Protocol Insulin Human Lispro 8 unit 06/11/22 11:30 06/11/22 10:00 Insulin Lispro 100 Unit/Ml SUB-Q Not Given AC DARRYL Lisinopril 20 mg 06/09/22 10:00 06/11/22 10:00 Lisinopril 20 Mg Tab PO Not Given QDAY DARRYL Miscellaneous Medication 50 mg 06/08/22 22:00 06/09/22 06:16 Fluvoxamine Maleate [Fluvoxamine Maleate] PO Not Given QHS DARRYL Ondansetron HCl 4 mg 06/11/22 14:10 Ondansetron 4 Mg/2 Ml Inj IV Q8H PRN Nausea And Vomiting Oxycodone/Acetaminophen 1 tab 06/08/22 17:35 06/11/22 20:33 Oxycodone /Acetaminophen 5-325mg Tab PO 1 tab Q6H PRN Administration Pain, Moderate (4-6) Risperidone 4 mg 06/08/22 22:00 06/11/22 21:21 Risperidone 1 Mg Tab PO 4 mg QHS DARRYL Administration Sodium Chloride 10 ml 06/08/22 22:00 06/11/22 21:21 Sodium Chloride 0.9% 10 Ml Flush Syringe IV 10 ml BID DARRYL Administration Sodium Chloride 10 ml 06/08/22 17:35 06/10/22 01:27 Sodium Chloride 0.9% 10 Ml Flush Syringe IV 10 ml PRN PRN Administration LINE FLUSH Trazodone HCl 200 mg 06/08/22 22:00 06/11/22 21:20 Trazodone 100 Mg Tab PO 200 mg QHS DARRYL Administration
[2022-06-11 17:47] LABS: Basophils % (Auto) 0.5 % (0.0-1.8); Eosinophils # (Auto) 0.1 K/mm3 (0.0-0.4); Eosinophils % (Auto) 1.5 % (0.0-4.3); Hematocrit 42.9 % (35.5-45.6); Hemoglobin 14.5 gm/dl (11.8-15.2); Lymphocytes # (Auto) 0.8 K/mm3 (1.2-5.4); Lymphocytes % (Auto) 15.1 % (13.4-35.0); Mean Corpuscular HGB Conc 34 % (32-34); Mean Corpuscular Volume 91 fl (84-94); Monocytes # (Auto) 0.5 K/mm3 (0.0-0.8); Monocytes % (Auto) 9.1 % (0.0-7.3); Platelet Count 165 K/mm3 (140-440); Red Blood Count 4.69 M/mm3 (3.65-5.03); Red Cell Distribution Width 14.6 % (13.2-15.2)
[2022-06-11 18:17] LABS: INR 1.17 (0.87-1.13)
[2022-06-11 18:18] LABS: Fibrinogen 372 mg/dl (211-480)
[2022-06-11 18:44] LABS: Partial Thromboplastin Time > 240.0 Sec. (24.2-36.6)
[2022-06-11] MEDS: oxyCODONE /ACETAMINOPHEN 5-325MG TAB PO PRN (20:33)
[2022-06-11] MEDS: DOCUSATE SODIUM 100 MG CAP PO SCH (21:20)
[2022-06-11] MEDS: traZODone 100 MG TAB PO SCH (21:20)
[2022-06-11] MEDS: DONEPEZIL 10 MG TAB PO SCH (21:20)
[2022-06-11] MEDS: risperiDONE 1 MG TAB PO SCH (21:21)
[2022-06-11] MEDS ORDERED: INSULIN GLARGINE 100 UNITS/ML SUB-Q SCH (22:00)
[2022-06-12 01:19] LABS: Basophils % (Auto) 0.5 % (0.0-1.8); Eosinophils % (Auto) 0.4 % (0.0-4.3); Hematocrit 38.1 % (35.5-45.6); Hemoglobin 12.9 gm/dl (11.8-15.2); Lymphocytes # (Auto) 0.9 K/mm3 (1.2-5.4); Lymphocytes % (Auto) 16.2 % (13.4-35.0); Mean Corpuscular HGB Conc 34 % (32-34); Mean Corpuscular Volume 92 fl (84-94); Monocytes # (Auto) 0.7 K/mm3 (0.0-0.8); Monocytes % (Auto) 11.7 % (0.0-7.3); Platelet Count 154 K/mm3 (140-440); Red Blood Count 4.15 M/mm3 (3.65-5.03); Red Cell Distribution Width 14.6 % (13.2-15.2)
[2022-06-12 05:04] LABS: Hematocrit 37.9 % (35.5-45.6); Hemoglobin 12.6 gm/dl (11.8-15.2); Mean Corpuscular HGB Conc 33 % (32-34); Mean Corpuscular Volume 91 fl (84-94); Platelet Count 147 K/mm3 (140-440); Red Blood Count 4.16 M/mm3 (3.65-5.03); Red Cell Distribution Width 14.7 % (13.2-15.2)
[2022-06-12 05:28] LABS: BUN/Creatinine Ratio 12; Blood Urea Nitrogen 13 mg/dL (9-20); Calcium 7.7 mg/dL (8.4-10.2); Hemolysis Index 3
[2022-06-12] MEDS: hydrALAZINE 20 MG/1 ML INJ IV PRN (06:05)
[2022-06-12] MEDS ORDERED: LIDOCAINE 2%/EPINEPHRINE 1:200,000 VIAL (20 ML) INFILTRATI ONE (08:07)
[2022-06-12] MEDS ORDERED: MIDAZOLAM 2 MG/2 ML INJ ONE (08:07)
[2022-06-12] MEDS ORDERED: HEPARIN/NS 5000 UNIT/500ML 1,000 ML IR ONE (08:07)
[2022-06-12] MEDS ORDERED: fentaNYL 100 MCG/2 ML INJ ONE (08:07)
[2022-06-12] MEDS: HEPARIN 10,000 UNITS/10 ML VIAL ONE ×2 (08:39→09:22)
[2022-06-12] MEDS ORDERED: NITROGLYCERIN DRIP 50 MG/250 ML BOTTLE ONE (08:40)
[2022-06-12] MEDS ORDERED: HEPARIN/NS 5000 UNIT/500ML 500 ML IR ONE (09:26)
[2022-06-12] MEDS ORDERED: SODIUM CHLORIDE 0.9% 1000 ML 1,000 ML ONE (09:41)
[2022-06-12] MEDS ORDERED: HEPARIN/ 0.45% NACL DRIP 25,000 UNIT/500 ML BAG ONE (09:52)
[2022-06-12] MEDS ORDERED: CLOPIDOGREL 300 MG TAB ONE (09:52)
[2022-06-12] MEDS ORDERED: NITROGLYCERIN 2% OINT 1 GM TP ONE (10:03)
[2022-06-12 10:15] LABS: Basophils % (Auto) 0.4 % (0.0-1.8); Eosinophils % (Auto) 0.1 % (0.0-4.3); Hematocrit 35.6 % (35.5-45.6); Hemoglobin 11.8 gm/dl (11.8-15.2); Lymphocytes # (Auto) 0.8 K/mm3 (1.2-5.4); Lymphocytes % (Auto) 14.2 % (13.4-35.0); Mean Corpuscular HGB Conc 33 % (32-34); Mean Corpuscular Volume 91 fl (84-94); Monocytes # (Auto) 0.5 K/mm3 (0.0-0.8); Monocytes % (Auto) 9.1 % (0.0-7.3); Platelet Count 140 K/mm3 (140-440); Red Blood Count 3.91 M/mm3 (3.65-5.03); Red Cell Distribution Width 14.6 % (13.2-15.2)
--- NOTE | 2022-06-12 10:19 | Operative Report ---
Operative Report Operative Report: EXAM: 1. Fluoroscopic guided removal of the left lower extremity arterial thrombolytic catheter. 2. Angiography of the left lower extremity (clinical change). 3. Thrombectomy of the left superficial femoral artery and popliteal artery with a CAT 7 lightning device 4. Stenting of the left popliteal artery with a 7 mm x 120 mm Shaneka stent and angioplasty of the left popliteal artery with a 6 mm x 200 mm Winchester angioplasty balloon 5. Secondary thrombectomy of the left below the knee popliteal artery. 6. Angioplasty of the peroneal artery, tibioperoneal trunk, and distal popliteal artery with a 2 mm x 220 mm angioplasty balloon 7. Angioplasty of the below the knee popliteal artery with a 4 mm x 120 mm iNPACT 018 balloon 8. Closure of the right common femoral artery with 6 [place] Pro style DATE: 06/12/2022 CLOTH REELER: FERNANDO SILVESTRE MD INDICATION: Subacute limb ischemia of the left lower extremity for 3 weeks with Edward 2A. At the conclusion of the procedure, the patient has no further pain or decreased sensation. Motor function stable. MEDICATIONS: Please see nursing report for full details. DEVICES: 7 mm x 120 mm Shaneka stent 6 mm x 200 mm [place] angioplasty balloon 4 mm x 120 mm iNPACT balloon 2 mm x 220 mm angioplasty balloon Lightening CAT 7 penumbra device CONTRAST: Please see Registration Representative report for full details. PROCEDURE: The risk, benefits, and alternatives were discussed with the patient; the patient was brought from the ICU to the Registration Representative in stable condition. The patient's right groin was prepped and draped in a sterile fashion. Digital subtraction angiography was performed through the left indwelling thrombolytic catheter after removal of tPA. Nitroglycerin was then administered. Over a 0.018 inch wire, pullback angiography was performed of the left lower extremity. Digital subtraction angiography demonstrated a 30% stenosis in the left proximal superficial femoral artery with clearance of thrombus in the left proximal mid and distal superficial femoral artery. There was some residual thrombus in the left iyapd-knc-mvhd and mid popliteal artery with a 50% stenosis in the left uqdoj-zkb-ipzd popliteal artery, 99% stenosis in the left mid popliteal artery. Sluggish flow noted in the left below the knee popliteal artery with a 70% stenosis. The tibioperoneal trunk and proximal peroneal artery appeared patent with some irregularity. 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 Numerous collaterals provide flow to the mid peroneal artery which is the dominant way the body is providing flow to the lower leg even with the inflow from the popliteal artery to the peroneal artery. The peroneal artery is small in diameter and continuous to the level of the ankle where provides numerous collaterals to the foot. The peroneal artery provides collaterals to the anterior tibial artery at the level of the distal calf which then provides flow to the dorsalis pedis. The posterior tibial artery is occluded throughout its course. After reviewing the diagnostic angiography, I determined the patient required further revascularization. Of note, throughout the procedure, nitroglycerin was intermittent administered to try to prevent tibial spasm. Sheath was exchanged for 7 [place] 45 cm [place] destination and a lightening 7 thrombectomy catheter was used to remove the residual thrombus in the zouln-ctd-qwao popliteal artery. After this was performed, 7 mm x 120 mm Shaneka stent was then deployed in the left mid popliteal artery and 6 mm x 200 mm Winchester angioplasty balloon was used to perform angioplasty of the hzkdm-yhr-ivbw and mid popliteal artery. Digital subtraction angiography demonstrated patency of the utims-fjq-gdtd and mid popliteal artery but there is some debris that now occurred in the below the knee popliteal artery. There was sluggish flow now in the below the knee popliteal artery and proximal peroneal artery. Lightening 7 was then used to perform thrombectomy of the left below the knee popliteal artery. Afterwards, 2 mm x 220 mm angioplasty balloon was used to perform angioplasty of the left below the knee popliteal artery and proximal peroneal artery and tibial peroneal trunk. Digital subtraction angiography demonstrated inline flow to the peroneal artery with the residual 70% stenosis in the below the knee popliteal artery. 4 mm x 120 mm iNPACT balloon was used to perform angioplasty of the left below the knee popliteal artery. Digital subtraction angiography demonstrated sluggish flow from the below the knee popliteal artery to the proximal peroneal artery, but there was robust collateral flow supplying the tibial vessels. Angioplasty was performed of the left below the knee popliteal artery and proximal peroneal artery with a 2 mm x 220 mm angioplasty balloon. Digital subtraction angiography demonstrated 30% stenosis of the left proximal superficial femoral artery, patency of the left mid and distal superficial femoral artery, patency of the left pieru-nnl-oiwm popliteal artery and mid popliteal artery. There is 20% residual narrowing of the left below the knee popliteal artery. There is a small but patent peroneal artery throughout its course with collaterals at the ankle to the foot and collaterals supplying the distal anterior tibial artery which is reconstituted with the intact dorsalis pedis. Robust collaterals come from the geniculate arteries at the level of the mid popliteal artery supplying the lower extremity. I suspect the tibials represented chronic total occlusions. At this point, the patient's leg was without pain and his sensation had improved. I believe that the procedure was complete. Wire, catheters, and sheaths were retracted to the right external iliac artery which was then closed with a 6 [place] Pro style. Pressure dressing applied. Sterile dressing applied. Patient tolerated the procedure well. No immediate postprocedural complications. Patient was loaded with Plavix, and reinitiated on a heparin drip in 1 hour. Half an inch of Nitropaste was applied to the left foot to be removed in 3 hours. FINDINGS: Please see procedure note above IMPRESSION: 1. Successful removal of the left lower extremity arterial thrombolytic catheter. 2. Successful thrombectomy of the left popliteal artery and superficial femoral artery. 3. Successful stenting and angioplasty of the left popliteal artery. 4. Successful angioplasty of the left tibioperoneal trunk and proximal peroneal artery.
--- NOTE | 2022-06-12 10:56 | Event Note ---
Date: 06/12/22 Keep flat for the next 12 hours. Successful thrombectomy and thrombolysis of the left lower extremity. Left leg is now warm. Pain has resolved. Sensation has improved. Given 3-week duration of symptoms and severe tibial disease, I suspect patient will not develop compartment syndrome, but this will be monitored for the next 24 hours. Continue heparin drip. Started Plavix and cilostazol. Started pantoprazole for GI prophylaxis. Can consider transitioning from heparin to Eliquis tomorrow.
[2022-06-12] MEDS ORDERED: HEPARIN/ 0.45% NACL DRIP 25,000 UNIT/500 ML BAG IV SCH (11:00)
[2022-06-12] MEDS: INSULIN LISPRO 100 UNIT/ML SUB-Q SCH ×7 (11:23→21:05)
[2022-06-12] MEDS: LISINOPRIL 20 MG TAB PO SCH (11:28)
[2022-06-12] MEDS: CETIRIZINE 10 MG TAB PO SCH (11:29)
[2022-06-12] MEDS: amLODIPine 10 MG TAB PO SCH (11:29)
[2022-06-12] MEDS: DOCUSATE SODIUM 100 MG CAP PO SCH ×2 (11:29→21:05)
[2022-06-12 11:30] LABS: Hematocrit 39.2 % (35.5-45.6); Hemoglobin 12.8 gm/dl (11.8-15.2)
[2022-06-12] MEDS: CILOSTAZOL 100 MG TAB PO SCH ×2 (11:35→21:05)
[2022-06-12 11:36] LABS: INR 1.16 (0.87-1.13)
[2022-06-12 11:45] LABS: Partial Thromboplastin Time 188.7 Sec. (24.2-36.6)
--- NOTE | 2022-06-12 11:52 | Event Note ---
Date: 06/12/22 Left leg is warm and well-perfused. Has some minimal discomfort with palpation of the left calf. Compartments are soft.
--- NOTE | 2022-06-12 12:53 | Progress Note ---
Assessment and Plan Pt is a 77-year-old AA male with a hx of HTN, DM2, chronic sinus bradycardia, cerebral atherosclerosis, vascular dementia, and schizophrenia who is currently admitted per Vasc Surg recs for SFA occlusion. Chronic Sinus Bradycardia ?Intermittent Junctional Rhythm PVD / SFA Occlusion PATRICIA HTN DM2 Cerebral Atherosclerosis Vascular Dementia Schizophrenia Echo 06/10/2022-EF 65 to 70%. Borderline concentric LVH. Right ventricle is normal in size. Right ventricle systolic function is normal. There is mild tricuspid regurgitation Plan: Patient for VATS procedure today Telemetry reviewed patient remains sinus bradycardia to sinus rhythm however patient remains hemodynamically stable. Avoid AV pham blocking agents. Unclear why pt was prescribed Carvedilol as an outpatient. He is not on a BB per his Ct Technician @ [place] (Dr. Haas). No appreciable indication for BB. Will continue to follow Pt seen in conjunction with Dr. Adriano Epstein, who agrees with the assessment and plan of care. - Patient Problems (1) Arterial occlusion, lower extremity Current Visit: Yes Status: Acute (2) Hyperkalemia Current Visit: Yes Status: Acute (3) Ischemia of left lower extremity Current Visit: Yes Status: Acute (4) Sinus bradycardia Current Visit: Yes Status: Chronic (5) Cerebral atherosclerosis Current Visit: No Status: Acute (6) Hypertension Current Visit: No Status: Acute Qualifiers: Qualified Code(s): I10 - Essential (primary) hypertension (7) Schizophrenia Current Visit: No Status: Acute Qualifiers: Qualified Code(s): F20.9 - Schizophrenia, unspecified (8) Vascular dementia with behavioral disturbance Current Visit: No Status: Acute Subjective Date of service: 06/12/22 Principal diagnosis: PVD with subacute arterial occlusion of his left SFA Interval history: Patient on follow-up for vascular procedure Not currently on monitor however previously trending sinus bradycardia 40s to 50s with episodes into the 60s Objective Vital Signs Temp Pulse Pulse Pulse Resp BP Pulse Ox 06/12/22 12:00 64 20 132/51 98 06/12/22 11:45 97 H 17 158/59 98 06/12/22 11:36 97.4 F L 06/12/22 11:30 64 18 158/59 96 06/12/22 11:29 61 145/55 06/12/22 11:28 61 145/55 06/12/22 11:15 62 17 145/55 96 06/12/22 11:01 56 L 13 135/51 98 06/12/22 10:45 62 18 135/57 97 06/12/22 10:30 62 17 147/50 97 06/12/22 10:21 135/57 97 06/12/22 08:00 60 55 L 100 06/12/22 07:30 56 L 21 135/57 97 06/12/22 07:08 99.6 F 06/12/22 07:00 85 18 123/51 97 06/12/22 06:31 92 H 21 142/49 96 06/12/22 06:01 51 L 18 177/56 97 06/12/22 05:31 50 L 17 170/56 97 06/12/22 05:01 56 L 13 172/86 99 06/12/22 05:00 98.6 F 06/12/22 04:30 53 L 15 173/56 97 06/12/22 04:01 50 L 15 166/56 88 06/12/22 04:00 55 L 100 06/12/22 03:30 49 L 14 159/53 97 06/12/22 03:02 50 L 06/12/22 03:00 46 L 15 165/51 98 06/12/22 02:31 62 16 160/49 97 06/12/22 02:00 51 L 14 152/56 97 06/12/22 01:30 53 L 13 158/59 97 06/12/22 01:01 48 L 13 156/54 96 06/12/22 00:30 58 L 16 159/63 96 06/12/22 00:01 51 L 14 151/55 96 06/12/22 00:00 99.3 F 52 L 100 06/11/22 23:34 53 L 06/11/22 23:30 54 L 13 145/57 99 06/11/22 23:00 54 L 14 139/53 98 06/11/22 22:31 56 L 12 86/47 99 06/11/22 22:00 55 L 13 98/53 99 06/11/22 21:31 50 L 15 115/40 97 06/11/22 21:00 53 L 15 150/55 99 06/11/22 20:30 57 L 20 167/71 98 06/11/22 20:01 53 L 15 163/61 98 06/11/22 20:00 101.0 F H 06/11/22 19:53 83 100 06/11/22 19:45 53 L 15 165/64 100 06/11/22 19:31 57 L 14 165/64 98 06/11/22 19:15 57 L 17 154/56 99 06/11/22 19:11 55 L 06/11/22 19:01 52 L 17 154/56 98 06/11/22 18:45 52 L 15 139/54 99 06/11/22 18:31 53 L 18 139/54 99 06/11/22 18:15 86 22 156/63 96 06/11/22 18:01 59 L 14 156/63 99 06/11/22 17:45 58 L 19 158/63 96 06/11/22 17:31 60 17 158/63 87 06/11/22 17:15 56 L 13 163/57 99 06/11/22 17:00 60 19 163/57 97 06/11/22 16:45 57 L 21 162/56 99 06/11/22 16:31 55 L 19 99 06/11/22 16:30 98.9 F 60 14 162/74 98 06/11/22 16:16 53 L 10 L 164/63 97 06/11/22 16:08 58 L 15 93 06/11/22 16:00 98.9 F 60 14 160/68 98 06/11/22 15:00 49 L 100 06/11/22 14:53 83 24 99 - Physical Examination General: No Apparent Distress HEENT: Positive: EOMI, Normocephaly Neck: Positive: neck supple, trachea midline. Negative: JVD/HJR Cardiac: Positive: Regular Rhythm, Bradycardia Lungs: Positive: Normal Breath Sounds Neuro: Positive: Grossly Intact Abdomen: Positive: Soft. Negative: Tender Skin: Negative: Rash Musculoskeletal: No Pain Extremities: Present: Cool (LLE). Absent: edema - Labs and Meds Coagulation 06/11/22 06/12/22 Range/Units 16:54 11:02 PT 16.3 H 16.2 H (12.2-14.9) Sec. INR 1.17 H 1.16 H (0.87-1.13) APTT > 240.0 H* 188.7 H* (24.2-36.6) Sec. CBC 06/11/22 06/12/22 06/12/22 Range/Units 16:54 00:29 04:30 WBC 5.4 5.7 5.7 (4.5-11.0) K/mm3 RBC 4.69 4.15 4.16 (3.65-5.03) M/mm3 Hgb 14.5 12.9 12.6 (11.8-15.2) gm/dl Hct 42.9 38.1 37.9 (35.5-45.6) % Plt Count 165 154 147 (140-440) K/mm3 Lymph # (Auto) 0.8 L 0.9 L (1.2-5.4) K/mm3 [place] # (Auto) 0.5 0.7 (0.0-0.8) K/mm3 Eos # (Auto) 0.1 0.0 (0.0-0.4) K/mm3 Baso # (Auto) 0.0 0.0 (0.0-0.1) K/mm3 06/12/22 06/12/22 Range/Units 09:35 11:02 WBC 5.5 (4.5-11.0) K/mm3 RBC 3.91 (3.65-5.03) M/mm3 Hgb 11.8 12.8 (11.8-15.2) gm/dl Hct 35.6 39.2 (35.5-45.6) % Plt Count 140 143 (140-440) K/mm3 Lymph # (Auto) 0.8 L (1.2-5.4) K/mm3 [place] # (Auto) 0.5 (0.0-0.8) K/mm3 Eos # (Auto) 0.0 (0.0-0.4) K/mm3 Baso # (Auto) 0.0 (0.0-0.1) K/mm3 Comprehensive Metabolic Panel 06/12/22 Range/Units 04:30 Sodium 141 (137-145) mmol/L Potassium 3.8 (3.6-5.0) mmol/L Chloride 112.5 H (98-107) mmol/L Carbon Dioxide 18 L (22-30) mmol/L BUN 13 (9-20) mg/dL Creatinine 1.1 (0.8-1.3) mg/dL Glucose 198 H (75-100) mg/dL Calcium 7.7 L (8.4-10.2) mg/dL - Imaging and Cardiology EKG: report reviewed, image reviewed Echo: report reviewed - Telemetry EKG Rhythm: Sinus Bradycardia - EKG Sinus rhythms and dysrhythmias: sinus bradycardia AV and intraventricular conduction: 1 AV block Repolarization changes or abnormalities: nonspecific abnormality, ST segment, and/or T wave
--- NOTE | 2022-06-12 13:13 | Progress Note ---
Assessment and Plan Assessment and plan: This is a 77-year-old male with vascular dementia with behavior disturbance, cerebralatherosclerosis, schizophrenia, DM, HTN And PVD admitted with subacute SFA occlusion Neuro: h/o vascular dementia with behavior disturbance, schizophrenia, cerebral atherosclerosis -Reorientation as needed -Maintain sleep-wake cycle -As needed analgesia -Resume risperdal, trazadone, aricept, fluvoxamine maleatme -Continue supportive care Cardiac: h/o chronic SB, intermittent junctional rhythm, HTN -Cardiology consulted, appreciate recommendations -Blood pressure monitoring per protocol -Antihypertension regimen: amlodipine, lisinopril -Per cardio: Avoid AV pham blocking agents. TSH and MG were within normal limits -No cardiac contraindications to proceeding with vascular intervention as planned. -Echocardiogram EF 65 to 70%. Borderline concentric LVH. Respiratory: NAD, Right upper lobe nodule -CCM consulted, appreciate recommendations -Pulmonary hygiene -SpO2 monitoring per protocol -Noted on CTA, single incidental pulmonary nodule(s) in the right upper lobe measuring 5 mm with solid characteristics. -Follow up outpatient for further evaluation GI: NAD -24 hours + 1724 mL -PPI -CC diet -BR: colace : Acute kidney injury likely secondary to vasomotor nephropathy, metabolic acidosis -Monitor intake and output -Renally dose medications -s/p IVF -Avoid nephrotoxic medications -Trend BMP ID: NAD -Antibiotic therapy with clindamycin preop -Monitor WBC and temperature curve Endo: h/o DM -CC diet -Avoid hypoglycemia -SSI -Accu-Cheks q. ACHS -Long-acting insulin, titrate as needed -Resume home lispro 8 units AC Heme: Subacute SVF occlusion -Vascular surgery consulted, appreciate recommendations -CTA abd/pelvis/lower extremities showed occluded left femoral, popliteal, tibiofemoral trunk likely from embolic disease, two-vessel runoffs bilaterally -s/p successful placement of the thrombolytic catheter in the left lower extremity, removal of EKOs catheter 06/12 -Heparin gtt -transition to DOAC tomorrow 06/13 -Trend CBC -Transfuse hemoglobin less than 7 The high probability of a clinically significant, sudden or life threatening deterioration of the [multiple] system(s) required my full and direct attention, intervention and personal management. The aggregate critical care time was [60] minutes. This time is in addition to time spent performing reported procedures but includes the following: [x] Data Review and interpretation [x] Patient assessment and monitoring of vital signs [x] Documentation [x] Medication orders and management Disposition Plan: icu Total Time Spent with Patient (Minutes): 60 History Interval history: This is a 77-year-old male with vascular dementia with behavior disturbance, CVA, cerebral atherosclerosis, schizophrenia, DM, HTN, PVD who presented to emergency department on 06/08 with complaints of left foot pain over the past 3 weeks and discoloration from his vascular surgeon's office where he was found to have left lower extremity ischemia via private vehicle. Patient was initially on heparin drip, vascular surgery team was consulted patient was admitted to the hospital service in [facility] with a subacute SFA occlusion. Hospital Course to Date: 06/09: Remains on heaprin gtt per protocol. Vascular Surgery recommendations noted, plan for possible revascularization procedure likely on Saturday. Patient also noted with SB, HR in the 30s. Home BB held, cardiology also consulted for further eval and clearance for possible vascular procedure. 06/10: Remains stable on RA. Heparin gtt per protocol. Per Vascular surgery plan for Facilities Manager for placement of EKOS catheter with possible other intervention tomorrow, N.p.o. after midnight. Remains in bradycardic, BP stable, Cardiology recommendations noted. SSI adjusted and Lantus Qhs added for hyperglycemia. 06/11: S/p EKOS to left lower extremity, transferred to ICU postprocedure. Increase in Lantus and restarted lispro 8 units AC and IV hydralazine as needed ordered. 06/12: EKOs removed today. Per Dr. Escamilla, pt will transition to DOAC tomorrow. Hospitalist Physical - Constitutional Vitals: Temp Pulse Resp BP Pulse Ox 97.4 F L 64 20 132/51 98 06/12/22 11:36 06/12/22 12:00 06/12/22 12:00 06/12/22 12:00 06/12/22 12:00 General appearance: Present: no acute distress - EENT Eyes: Present: PERRL, EOM intact ENT: hearing intact, poor dentition - Neck Neck: Present: normal ROM - Respiratory Respiratory effort: normal Respiratory: bilateral: CTA, diminished - Cardiovascular Rhythm: regular Heart Sounds: Present: S1 & S2. Absent: systolic murmur, diastolic murmur - Extremities Extremities: pulses intact, pulses symmetrical, normal temperature Peripheral Pulses: within normal limits - Abdominal General gastrointestinal: soft, non-tender, non-distended, normal bowel sounds - Integumentary Integumentary: Present: warm, dry - Psychiatric Psychiatric: cooperative - Neurologic Neurologic: CNII-XII intact, no focal deficits, moves all extremities - Allied Health Allied health notes reviewed: nursing, RT, social work Results - Labs CBC & Chem 7: 06/12/22 11:02 06/12/22 04:30 Labs: Laboratory Last Values WBC 5.5 K/mm3 (4.5-11.0) 06/12/22 09:35 RBC 3.91 M/mm3 (3.65-5.03) 06/12/22 09:35 Hgb 12.8 gm/dl (11.8-15.2) 06/12/22 11:02 Hct 39.2 % (35.5-45.6) 06/12/22 11:02 MCV 91 fl (84-94) 06/12/22 09:35 MCH 30 pg (28-32) 06/12/22 09:35 MCHC 33 % (32-34) 06/12/22 09:35 RDW 14.6 % (13.2-15.2) 06/12/22 09:35 Plt Count 143 K/mm3 (140-440) 06/12/22 11:02 Lymph % (Auto) 14.2 % (13.4-35.0) 06/12/22 09:35 [place] % (Auto) 9.1 % (0.0-7.3) H 06/12/22 09:35 Eos % (Auto) 0.1 % (0.0-4.3) 06/12/22 09:35 Baso % (Auto) 0.4 % (0.0-1.8) 06/12/22 09:35 Lymph # (Auto) 0.8 K/mm3 (1.2-5.4) L 06/12/22 09:35 [place] # (Auto) 0.5 K/mm3 (0.0-0.8) 06/12/22 09:35 Eos # (Auto) 0.0 K/mm3 (0.0-0.4) 06/12/22 09:35 Baso # (Auto) 0.0 K/mm3 (0.0-0.1) 06/12/22 09:35 Seg Neutrophils % 76.2 % (40.0-70.0) H 06/12/22 09:35 Seg Neutrophils # 4.2 K/mm3 (1.8-7.7) 06/12/22 09:35 PT 16.2 Sec. (12.2-14.9) H 06/12/22 11:02 INR 1.16 (0.87-1.13) H 06/12/22 11:02 APTT 188.7 Sec. (24.2-36.6) H* 06/12/22 11:02 Fibrinogen 313 mg/dl (211-480) 06/12/22 09:35 Heparin Anti-Xa Level 1.34 U.I./ml (0.3-0.7) H 06/12/22 09:35 Sodium 141 mmol/L (137-145) 06/12/22 04:30 Potassium 3.8 mmol/L (3.6-5.0) 06/12/22 04:30 Chloride 112.5 mmol/L (98-107) H 06/12/22 04:30 Carbon Dioxide 18 mmol/L (22-30) L 06/12/22 04:30 Anion Gap 14 mmol/L 06/12/22 04:30 BUN 13 mg/dL (9-20) 06/12/22 04:30 Creatinine 1.1 mg/dL (0.8-1.3) 06/12/22 04:30 Estimated GFR > 60 ml/min 06/12/22 04:30 BUN/Creatinine Ratio 12 % 06/12/22 04:30 Glucose 198 mg/dL (75-100) H 06/12/22 04:30 POC Glucose 248 mg/dL (70-105) H 06/12/22 11:13 Calcium 7.7 mg/dL (8.4-10.2) L 06/12/22 04:30 Magnesium 2.20 mg/dL (1.7-2.3) 06/10/22 13:30 Total Bilirubin 0.40 mg/dL (0.1-1.2) 06/08/22 17:59 AST 17 units/L (5-40) 06/08/22 17:59 ALT 18 units/L (7-56) 06/08/22 17:59 Alkaline Phosphatase 77 units/L (35-129) 06/08/22 17:59 Total Protein 7.8 g/dL (6.3-8.2) 06/08/22 17:59 Albumin 4.5 g/dL (3.9-5) 06/08/22 17:59 Albumin/Globulin Ratio 1.4 % 06/08/22 17:59 TSH 3.030 mlU/mL (0.270-4.200) 06/10/22 13:30 Blood Type O POSITIVE 06/11/22 16:54 Antibody Screen Negative 06/11/22 16:54 Khalil/IV: Voiding Method Condom Catheter Active Medications - Current Medications Current Medications: Generic Name Dose Route Start Last Admin Trade Name Freq PRN Reason Stop Dose Admin Acetaminophen 650 mg 06/08/22 17:35 06/09/22 20:46 Acetaminophen 325 Mg Tab PO 650 mg Q6H PRN Administration Pain MILD(1-3)/Fever >100.5/PACHECO Hydrocodone Bitart/Acetaminophen 2 each 06/11/22 14:10 Hydrocodone/Acetaminophen 5-325 Mg Tab PO Q6H PRN Pain, Moderate (4-6) Albuterol 2.5 mg 06/08/22 17:35 Albuterol 2.5 Mg/3 Ml Nebu IH Q3HRT PRN Shortness Of Breath Amlodipine Besylate 10 mg 06/12/22 10:00 06/12/22 11:29 Amlodipine 10 Mg Tab PO 10 mg QDAY DARRYL Administration Cetirizine HCl 10 mg 06/09/22 10:00 06/12/22 11:29 Cetirizine 10 Mg Tab PO 10 mg DAILY DARRYL Administration Cilostazol 100 mg 06/12/22 11:00 06/12/22 11:35 Cilostazol 100 Mg Tab PO 100 mg BID DARRYL Administration Clopidogrel Bisulfate 75 mg 06/13/22 10:00 Clopidogrel 75 Mg Tab PO QDAY DARRYL Dextrose 50 ml 06/09/22 12:27 Dextrose 50% In Water (25gm) 50 Ml Syringe IV Q30MIN PRN Hypoglycemia Protocol Docusate Sodium 100 mg 06/11/22 22:00 06/12/22 11:29 Docusate Sodium 100 Mg Cap PO 100 mg BID DARRYL Administration Donepezil HCl 10 mg 06/08/22 22:00 06/11/22 21:20 Donepezil 10 Mg Tab PO 10 mg QHS [facility] Administration Heparin Sodium (Porcine) 2,900 unit 06/09/22 08:32 Heparin 10,000 Units/10 Ml Vial 40 unit/kg (2900 unit) IV Q6H PRN Anti-Xa Assay < 0.1 units/ml Hydralazine HCl 10 mg 06/11/22 10:05 06/12/22 06:05 Hydralazine 20 Mg/1 Ml Inj IV 10 mg Q4HR PRN Administration Hypertension Hydralazine HCl 25 mg 06/12/22 14:00 Hydralazine 25 Mg Tab PO Q8HR DARRYL Hydromorphone HCl 0.5 mg 06/11/22 14:16 Hydromorphone 0.5 Mg/0.5 Ml Inj IV Q2H PRN Pain , Severe (7-10) Heparin Sodium/Sodium Chloride 25,000 unit in 500 mls @ 21 mls/hr 06/12/22 11:00 06/12/22 11:14 Heparin/ 0.45% Nacl-25,000 Unit/500 Ml IV 1,050 units/hr TITR DARRYL 21 mls/hr Administration Protocol 1,050 UNITS/HR Insulin Glargine 15 units 06/11/22 22:00 06/11/22 21:22 Insulin Glargine 100 Units/Ml SUB-Q 15 units QHS [facility] Administration Insulin Human Lispro 0 unit 06/09/22 16:30 06/12/22 11:25 Insulin Lispro 100 Unit/Ml SUB-Q 4 unit ACHS [facility] Administration Protocol Insulin Human Lispro 8 unit 06/11/22 11:30 06/12/22 11:24 Insulin Lispro 100 Unit/Ml SUB-Q 8 unit AC [facility] Administration Lisinopril 20 mg 06/09/22 10:00 06/12/22 11:28 Lisinopril 20 Mg Tab PO 20 mg QDAY [facility] Administration Miscellaneous Medication 50 mg 06/08/22 22:00 06/09/22 06:16 Fluvoxamine Maleate [Fluvoxamine Maleate] PO Not Given QHS [facility] Ondansetron HCl 4 mg 06/11/22 14:10 Ondansetron 4 Mg/2 Ml Inj IV Q8H PRN Nausea And Vomiting Oxycodone/Acetaminophen 1 tab 06/08/22 17:35 06/11/22 20:33 Oxycodone /Acetaminophen 5-325mg Tab PO 1 tab Q6H PRN Administration Pain, Moderate (4-6) Pantoprazole Sodium 40 mg 06/12/22 16:30 Pantoprazole 40 Mg Tab PO BIDAC DARRYL Risperidone 4 mg 06/08/22 22:00 06/11/22 21:21 Risperidone 1 Mg Tab PO 4 mg QHS DARRYL Administration Sodium Chloride 10 ml 06/08/22 22:00 06/12/22 11:30 Sodium Chloride 0.9% 10 Ml Flush Syringe IV 10 ml BID DARRYL Administration Sodium Chloride 10 ml 06/08/22 17:35 06/10/22 01:27 Sodium Chloride 0.9% 10 Ml Flush Syringe IV 10 ml PRN PRN Administration LINE FLUSH Trazodone HCl 200 mg 06/08/22 22:00 06/11/22 21:20 Trazodone 100 Mg Tab PO 200 mg QHS DARRYL Administration
[2022-06-12] MEDS: hydrALAZINE 25 MG TAB PO SCH ×2 (14:30→21:05)
[2022-06-12] MEDS: PANTOPRAZOLE 40 MG TAB PO SCH (16:10)
[2022-06-12] MEDS: HYDROcodone/ACETAMINOPHEN 5-325 MG TAB PO PRN (17:56)
[2022-06-12] MEDS: oxyCODONE /ACETAMINOPHEN 5-325MG TAB PO PRN (20:49)
[2022-06-12] MEDS: traZODone 100 MG TAB PO SCH (21:05)
[2022-06-12] MEDS: risperiDONE 1 MG TAB PO SCH (21:05)
[2022-06-12] MEDS: DONEPEZIL 10 MG TAB PO SCH (21:05)
[2022-06-12] MEDS ORDERED: INSULIN GLARGINE 100 UNITS/ML SUB-Q SCH (22:00)
[2022-06-13 03:52] LABS: Hematocrit 34.6 % (35.5-45.6); Hemoglobin 11.7 gm/dl (11.8-15.2); Mean Corpuscular HGB Conc 34 % (32-34); Mean Corpuscular Volume 91 fl (84-94); Platelet Count 123 K/mm3 (140-440); Red Blood Count 3.81 M/mm3 (3.65-5.03); Red Cell Distribution Width 14.9 % (13.2-15.2)
[2022-06-13 04:00] LABS: Calcium 8.4 mg/dL (8.4-10.2)
[2022-06-13] MEDS: hydrALAZINE 25 MG TAB PO SCH ×3 (05:10→22:46)
[2022-06-13] MEDS ORDERED: LACTATED RINGERS 1,000 ML IV ONE (07:45)
[2022-06-13] MEDS: INSULIN LISPRO 100 UNIT/ML SUB-Q SCH ×7 (08:34→22:59)
--- NOTE | 2022-06-13 09:03 | Progress Note ---
Assessment and Plan The patient is postoperative day #1 status post revascularization of his left lower extremity. He is In he has no signs of compartment syndrome. The patient's foot is warm and well-perfused. The patient complains of some pain in his feet however this is consistent with neuropathy and reperfusion. He can be converted to oral anticoagulation with Eliquis 5 mg p.o. twice daily with the plan to stop the heparin drip 2 hours after administration of the first Eliquis tablet. 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 He has no additional complaints at this time. Objective - Constitutional Vitals: Vital Signs - 12hr 06/12/22 06/12/22 06/12/22 22:00 23:00 23:16 Temperature Pulse Rate 62 60 58 L Pulse Rate [ From Monitor] Respiratory 15 14 13 Rate Blood Pressure 147/51 129/49 129/49 O2 Sat by Pulse 97 95 98 Oximetry 06/12/22 06/12/22 06/13/22 23:22 23:44 00:00 Temperature 98.2 F Pulse Rate 61 63 Pulse Rate [ 64 From Monitor] Respiratory 15 Rate Blood Pressure 121/46 O2 Sat by Pulse 97 Oximetry 06/13/22 06/13/22 06/13/22 01:00 02:00 03:00 Temperature Pulse Rate 71 64 66 Pulse Rate [ From Monitor] Respiratory 14 13 14 Rate Blood Pressure 128/47 132/47 116/44 O2 Sat by Pulse 96 97 97 Oximetry 06/13/22 06/13/22 06/13/22 04:00 05:00 05:10 Temperature 98.9 F Pulse Rate 67 68 Pulse Rate [ 66 From Monitor] Respiratory 10 L 11 L Rate Blood Pressure 145/51 129/53 129/53 O2 Sat by Pulse 97 96 Oximetry 06/13/22 06/13/22 06/13/22 06:00 07:00 08:00 Temperature 98.6 F Pulse Rate 67 89 95 H Pulse Rate [ 76 From Monitor] Respiratory 12 12 20 Rate Blood Pressure 141/52 136/52 105/42 O2 Sat by Pulse 97 97 95 Oximetry General appearance: Present: no acute distress - Respiratory Respiratory effort: normal - Cardiovascular Rhythm: regular Extremities: normal temperature (Bilateral feet are warm and well-perfused), abnormal (Right groin access site is soft and without evidence of hematoma) Extremity abnormal: tenderness (Mild tenderness to the distal left calf however the calf is soft without any signs or symptoms of compartment syndrome) - Gastrointestinal General gastrointestinal: Present: soft - Labs CBC & Chem 7: 06/13/22 03:19 06/13/22 03:19 Labs: Abnormal lab results 06/12/22 06/12/22 06/12/22 Range/Units 09:35 09:35 11:02 Hgb (11.8-15.2) gm/dl Hct (35.5-45.6) % Plt Count (140-440) K/mm3 [place] % (Auto) 9.1 H (0.0-7.3) % Lymph # (Auto) 0.8 L (1.2-5.4) K/mm3 Seg Neutrophils % 76.2 H (40.0-70.0) % PT 16.2 H (12.2-14.9) Sec. INR 1.16 H (0.87-1.13) APTT 188.7 H* (24.2-36.6) Sec. Heparin Anti-Xa Level 1.34 H (0.3-0.7) U.I./ml Chloride (98-107) mmol/L Carbon Dioxide (22-30) mmol/L Creatinine (0.8-1.3) mg/dL Glucose (75-100) mg/dL POC Glucose (70-105) mg/dL 06/12/22 06/12/22 06/12/22 Range/Units 11:13 16:01 20:48 Hgb (11.8-15.2) gm/dl Hct (35.5-45.6) % Plt Count (140-440) K/mm3 [place] % (Auto) (0.0-7.3) % Lymph # (Auto) (1.2-5.4) K/mm3 Seg Neutrophils % (40.0-70.0) % PT (12.2-14.9) Sec. INR (0.87-1.13) APTT (24.2-36.6) Sec. Heparin Anti-Xa Level (0.3-0.7) U.I./ml Chloride (98-107) mmol/L Carbon Dioxide (22-30) mmol/L Creatinine (0.8-1.3) mg/dL Glucose (75-100) mg/dL POC Glucose 248 H 250 H 258 H (70-105) mg/dL 06/12/22 06/13/22 06/13/22 Range/Units 22:07 03:19 03:19 Hgb 11.7 L (11.8-15.2) gm/dl Hct 34.6 L (35.5-45.6) % Plt Count 123 L (140-440) K/mm3 [place] % (Auto) (0.0-7.3) % Lymph # (Auto) (1.2-5.4) K/mm3 Seg Neutrophils % (40.0-70.0) % PT (12.2-14.9) Sec. INR (0.87-1.13) APTT (24.2-36.6) Sec. Heparin Anti-Xa Level 1.12 H (0.3-0.7) U.I./ml Chloride 110.2 H (98-107) mmol/L Carbon Dioxide 20 L (22-30) mmol/L Creatinine 1.4 H (0.8-1.3) mg/dL Glucose 225 H (75-100) mg/dL POC Glucose (70-105) mg/dL 06/13/22 06/13/22 Range/Units 05:49 07:42 Hgb (11.8-15.2) gm/dl Hct (35.5-45.6) % Plt Count (140-440) K/mm3 [place] % (Auto) (0.0-7.3) % Lymph # (Auto) (1.2-5.4) K/mm3 Seg Neutrophils % (40.0-70.0) % PT (12.2-14.9) Sec. INR (0.87-1.13) APTT (24.2-36.6) Sec. Heparin Anti-Xa Level 0.73 H (0.3-0.7) U.I./ml Chloride (98-107) mmol/L Carbon Dioxide (22-30) mmol/L Creatinine (0.8-1.3) mg/dL Glucose (75-100) mg/dL POC Glucose 214 H (70-105) mg/dL Medications & Allergies - Medications Allergies/Adverse Reactions: Allergies Penicillins Allergy (Intermediate, Verified 03/23/22 23:25) Rash Home Medications: Home Medications Medication Instructions Recorded Confirmed Last Taken Type Fluvoxamine Maleate [fluvoxaMINE 50 mg PO QHS 01/09/16 06/09/22 06/07/22 21:00 History Maleate] Loratadine (Nf) [Claritin (Nf)] 10 mg PO DAILY 01/09/16 06/09/22 06/08/22 09:00 History amLODIPine 5 mg PO DAILY 01/09/16 06/09/22 06/08/22 09:00 History carvediloL [Coreg] 3.125 mg PO BID 01/09/16 06/09/22 06/08/22 09:00 History donepeziL [Aricept] 10 mg PO QHS 01/09/16 06/09/22 06/07/22 21:00 History lisinopriL [Zestril TAB] 20 mg PO QDAY 01/09/16 06/09/22 06/08/22 09:00 History risperiDONE [RisperDAL] 4 mg PO QHS 01/09/16 06/09/22 06/07/22 21:00 History traZODone [Desyrel] 200 mg PO QHS 01/09/16 06/09/22 06/07/22 21:00 History Insulin Glargine [Lantus VIAL] 15 units SUB-Q QAMDIAB #1 units 01/12/16 06/09/22 06/08/22 09:00 Rx Insulin Glulisine [Apidra] 8 units SUB-Q AC #1 units 01/12/16 06/09/22 06/08/22 09:00 Rx Active Medications: Generic Name Dose Route Start Last Admin Trade Name Freq PRN Reason Stop Dose Admin Acetaminophen 650 mg 06/08/22 17:35 06/09/22 20:46 Acetaminophen 325 Mg Tab PO 650 mg Q6H PRN Administration Pain MILD(1-3)/Fever >100.5/PACHECO Hydrocodone Bitart/Acetaminophen 2 each 06/11/22 14:10 06/12/22 17:56 Hydrocodone/Acetaminophen 5-325 Mg Tab PO 2 each Q6H PRN Administration Pain, Moderate (4-6) Albuterol 2.5 mg 07/22/22 17:35 Albuterol 2.5 Mg/3 Ml Nebu IH Q3HRT PRN Shortness Of Breath Amlodipine Besylate 10 mg 06/12/22 10:00 06/12/22 11:29 Amlodipine 10 Mg Tab PO 10 mg QDAY DARRYL Administration Cetirizine HCl 10 mg 06/09/22 10:00 06/12/22 11:29 Cetirizine 10 Mg Tab PO 10 mg DAILY DARRYL Administration Cilostazol 100 mg 06/12/22 11:00 06/12/22 21:05 Cilostazol 100 Mg Tab PO 100 mg BID DARRYL Administration Clopidogrel Bisulfate 75 mg 06/13/22 10:00 Clopidogrel 75 Mg Tab PO QDAY DARRYL Dextrose 50 ml 06/09/22 12:27 Dextrose 50% In Water (25gm) 50 Ml Syringe IV Q30MIN PRN Hypoglycemia Protocol Docusate Sodium 100 mg 06/11/22 22:00 06/12/22 21:05 Docusate Sodium 100 Mg Cap PO 100 mg BID DARRYL Administration Donepezil HCl 10 mg 06/08/22 22:00 06/12/22 21:05 Donepezil 10 Mg Tab PO 10 mg QHS DARRYL Administration Hydralazine HCl 10 mg 06/11/22 10:05 06/12/22 06:05 Hydralazine 20 Mg/1 Ml Inj IV 10 mg Q4HR PRN Administration Hypertension Hydralazine HCl 25 mg 06/12/22 14:00 06/13/22 05:10 Hydralazine 25 Mg Tab PO 25 mg Q8HR DARRYL Administration Hydromorphone HCl 0.5 mg 06/11/22 14:16 Hydromorphone 0.5 Mg/0.5 Ml Inj IV Q2H PRN Pain , Severe (7-10) Insulin Glargine 30 units 06/13/22 22:00 Insulin Glargine 100 Units/Ml SUB-Q QHS DARRYL Insulin Human Lispro 0 unit 06/09/22 16:30 06/13/22 08:34 Insulin Lispro 100 Unit/Ml SUB-Q 4 unit ACHS DARRYL Administration Protocol Insulin Human Lispro 8 unit 06/11/22 11:30 06/13/22 08:34 Insulin Lispro 100 Unit/Ml SUB-Q 8 unit AC DARRYL Administration Lisinopril 20 mg 06/09/22 10:00 06/12/22 11:28 Lisinopril 20 Mg Tab PO 20 mg QDAY DARRYL Administration Miscellaneous Medication 50 mg 06/08/22 22:00 06/09/22 06:16 Fluvoxamine Maleate [Fluvoxamine Maleate] PO Not Given QHS DARRYL Ondansetron HCl 4 mg 06/11/22 14:10 Ondansetron 4 Mg/2 Ml Inj IV Q8H PRN Nausea And Vomiting Oxycodone/Acetaminophen 1 tab 06/08/22 17:35 06/12/22 20:49 Oxycodone /Acetaminophen 5-325mg Tab PO 1 tab Q6H PRN Administration Pain, Moderate (4-6) Pantoprazole Sodium 40 mg 06/12/22 16:30 06/12/22 16:10 Pantoprazole 40 Mg Tab PO 40 mg BIDAC DARRYL Administration Risperidone 4 mg 06/08/22 22:00 06/12/22 21:05 Risperidone 1 Mg Tab PO 4 mg QHS DARRYL Administration Sodium Chloride 10 ml 06/08/22 22:00 06/12/22 21:06 Sodium Chloride 0.9% 10 Ml Flush Syringe IV 10 ml BID DARRYL Administration Sodium Chloride 10 ml 06/08/22 17:35 06/10/22 01:27 Sodium Chloride 0.9% 10 Ml Flush Syringe IV 10 ml PRN PRN Administration LINE FLUSH Trazodone HCl 200 mg 06/08/22 22:00 06/12/22 21:05 Trazodone 100 Mg Tab PO 200 mg QHS DARRYL Administration
[2022-06-13] MEDS: CETIRIZINE 10 MG TAB PO SCH (09:30)
[2022-06-13] MEDS: PANTOPRAZOLE 40 MG TAB PO SCH ×2 (09:30→17:14)
[2022-06-13] MEDS: APIXABAN 5 MG TAB PO SCH ×2 (09:30→22:45)
[2022-06-13] MEDS: CLOPIDOGREL 75 MG TAB PO SCH (09:30)
[2022-06-13] MEDS: DOCUSATE SODIUM 100 MG CAP PO SCH ×2 (09:30→22:46)
[2022-06-13] MEDS: amLODIPine 10 MG TAB PO SCH (09:44)
[2022-06-13] MEDS: LISINOPRIL 20 MG TAB PO SCH (09:45)
--- NOTE | 2022-06-13 10:25 | Progress Note ---
<GIULIA WHYTE - Last Filed: 06/13/22 11:41> Assessment and Plan Assessment and plan: This is a 77-year-old male with vascular dementia with behavior disturbance, cerebralatherosclerosis, schizophrenia, DM, HTN And PVD admitted with subacute SFA occlusion Neuro: h/o vascular dementia with behavior disturbance, schizophrenia, cerebral atherosclerosis -Reorientation as needed -Maintain sleep-wake cycle -As needed analgesia -Resume risperdal, trazadone, aricept, fluvoxamine maleatme -Continue supportive care Cardiac: h/o chronic SB, intermittent junctional rhythm, HTN -Cardiology consulted, appreciate recommendations -Blood pressure monitoring per protocol -Antihypertension regimen: amlodipine, lisinopril -Per cardio: Avoid AV pham blocking agents. TSH and MG were within normal limits -No cardiac contraindications to proceeding with vascular intervention as planned. -Echocardiogram EF 65 to 70%. Borderline concentric LVH. Respiratory: NAD, Right upper lobe nodule -CCM consulted, appreciate recommendations -Pulmonary hygiene -SpO2 monitoring per protocol -Noted on CTA, single incidental pulmonary nodule(s) in the right upper lobe measuring 5 mm with solid characteristics. -Follow up outpatient for further evaluation GI: NAD -24 hours -241 mL -PPI -CC diet -BR: colace : Acute kidney injury likely secondary to vasomotor nephropathy, Hyperchloremic metabolic acidosis -Monitor intake and output -Renally dose medications -s/p IVF -given LR bolus today -Avoid nephrotoxic medications -Urine lytes pending -Trend BMP ID: NAD -Antibiotic therapy with clindamycin preop -Monitor WBC and temperature curve Endo: h/o DM -CC diet -Avoid hypoglycemia -SSI -Accu-Cheks q. 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 The aggregate critical care time was [60] minutes. This time is in addition to time spent performing reported procedures but includes the following: [x] Data Review and interpretation [x] Patient assessment and monitoring of vital signs [x] Documentation [x] Medication orders and management Disposition Plan: [facility] Total Time Spent with Patient (Minutes): 60 History Interval history: This is a 77-year-old male with vascular dementia with behavior disturbance, CVA, cerebral atherosclerosis, schizophrenia, DM, HTN, PVD who presented to emergency department on 06/08 with complaints of left foot pain over the past 3 weeks and discoloration from his vascular surgeon's office where he was found to have left lower extremity ischemia via private vehicle. Patient was initially on heparin drip, vascular surgery team was consulted patient was admitted to the hospital service in [facility] with a subacute SFA occlusion. Hospital Course to Date: 06/09: Remains on heaprin gtt per protocol. Vascular Surgery recommendations noted, plan for possible revascularization procedure likely on Saturday. Patient also noted with SB, HR in the 30s. Home BB held, cardiology also consulted for further eval and clearance for possible vascular procedure. 06/10: Remains stable on RA. Heparin gtt per protocol. Per Vascular surgery plan for [employer] Manager for placement of EKOS catheter with possible other intervention tomorrow, N.p.o. after midnight. Remains in bradycardic, BP stable, Cardiology recommendations noted. SSI adjusted and Lantus Qhs added for hyperglycemia. 06/11: S/p EKOS to left lower extremity, transferred to ICU postprocedure. Increase in Lantus and restarted lispro 8 units AC and IV hydralazine as needed ordered. 06/12: EKOs removed today. Per Dr. Escamilla, pt will transition to DOAC tomorrow. Can transfer to [facility] if needed 06/13: Transitioned to DOAC today. Increase in Cr noted and BP soft therefore will give 1x LR bolus and obtain urine lytes. Hospitalist Physical - Constitutional Vitals: Temp Pulse Resp BP Pulse Ox 98.6 F 64 15 93/45 100 06/13/22 08:00 06/13/22 09:00 06/13/22 09:00 06/13/22 09:45 06/13/22 09:00 General appearance: Present: no acute distress - EENT Eyes: Present: PERRL, EOM intact ENT: hearing decreased, poor dentition - Neck Neck: Present: normal ROM - Respiratory Respiratory effort: normal Respiratory: bilateral: CTA, diminished - Cardiovascular Rhythm: regular Heart Sounds: Present: S1 & S2. Absent: systolic murmur, diastolic murmur - Extremities Extremities: no ischemia, pulses intact, pulses symmetrical, No edema, normal temperature, normal color Peripheral Pulses: within normal limits - Peripheral pulses dorsalis pedis Pulse Strength: 1+ (Doppler) posterial tibial Pulse Strength: 1+ (Doppler) - Abdominal General gastrointestinal: soft, non-tender, non-distended, normal bowel sounds - Integumentary Integumentary: Present: warm, dry - Psychiatric Psychiatric: cooperative - Neurologic Neurologic: CNII-XII intact, no focal deficits, moves all extremities, other (c/o pain to bilateral legs) Results - Labs CBC & Chem 7: 06/13/22 03:19 06/13/22 03:19 Labs: Laboratory Last Values WBC 5.0 K/mm3 (4.5-11.0) 06/13/22 03:19 RBC 3.81 M/mm3 (3.65-5.03) 06/13/22 03:19 Hgb 11.7 gm/dl (11.8-15.2) L 06/13/22 03:19 Hct 34.6 % (35.5-45.6) L 06/13/22 03:19 MCV 91 fl (84-94) 06/13/22 03:19 MCH 31 pg (28-32) 06/13/22 03:19 MCHC 34 % (32-34) 06/13/22 03:19 RDW 14.9 % (13.2-15.2) 06/13/22 03:19 Plt Count 123 K/mm3 (140-440) L 06/13/22 03:19 Lymph % (Auto) 14.2 % (13.4-35.0) 06/12/22 09:35 Karnes % (Auto) 9.1 % (0.0-7.3) H 06/12/22 09:35 Eos % (Auto) 0.1 % (0.0-4.3) 06/12/22 09:35 Baso % (Auto) 0.4 % (0.0-1.8) 06/12/22 09:35 Lymph # (Auto) 0.8 K/mm3 (1.2-5.4) L 06/12/22 09:35 Karnes # (Auto) 0.5 K/mm3 (0.0-0.8) 06/12/22 09:35 Eos # (Auto) 0.0 K/mm3 (0.0-0.4) 06/12/22 09:35 Baso # (Auto) 0.0 K/mm3 (0.0-0.1) 06/12/22 09:35 Seg Neutrophils % 76.2 % (40.0-70.0) H 06/12/22 09:35 Seg Neutrophils # 4.2 K/mm3 (1.8-7.7) 06/12/22 09:35 PT 16.2 Sec. (12.2-14.9) H 06/12/22 11:02 INR 1.16 (0.87-1.13) H 06/12/22 11:02 APTT 188.7 Sec. (24.2-36.6) H* 06/12/22 11:02 Fibrinogen 313 mg/dl (211-480) 06/12/22 09:35 Heparin Anti-Xa Level 0.73 U.I./ml (0.3-0.7) H 06/13/22 05:49 Sodium 141 mmol/L (137-145) 06/13/22 03:19 Potassium 4.0 mmol/L (3.6-5.0) 06/13/22 03:19 Chloride 110.2 mmol/L (98-107) H 06/13/22 03:19 Carbon Dioxide 20 mmol/L (22-30) L 06/13/22 03:19 Anion Gap 15 mmol/L 06/13/22 03:19 BUN 19 mg/dL (9-20) 06/13/22 03:19 Creatinine 1.4 mg/dL (0.8-1.3) H 06/13/22 03:19 Estimated GFR 59 ml/min 06/13/22 03:19 BUN/Creatinine Ratio 14 % 06/13/22 03:19 Glucose 225 mg/dL (75-100) H 06/13/22 03:19 POC Glucose 214 mg/dL (70-105) H 06/13/22 07:42 Calcium 8.4 mg/dL (8.4-10.2) 06/13/22 03:19 Magnesium 2.20 mg/dL (1.7-2.3) 06/10/22 13:30 Total Bilirubin 0.40 mg/dL (0.1-1.2) 06/08/22 17:59 AST 17 units/L (5-40) 06/08/22 17:59 ALT 18 units/L (7-56) 06/08/22 17:59 Alkaline Phosphatase 77 units/L (35-129) 06/08/22 17:59 Total Protein 7.8 g/dL (6.3-8.2) 06/08/22 17:59 Albumin 4.5 g/dL (3.9-5) 06/08/22 17:59 Albumin/Globulin Ratio 1.4 % 06/08/22 17:59 TSH 3.030 mlU/mL (0.270-4.200) 06/10/22 13:30 Blood Type O POSITIVE 06/11/22 16:54 Antibody Screen Negative 06/11/22 16:54 Khalil/IV: Voiding Method Condom Catheter Active Medications - Current Medications Current Medications: Generic Name Dose Route Start Last Admin Trade Name Freq PRN Reason Stop Dose Admin Acetaminophen 650 mg 06/08/22 17:35 06/09/22 20:46 Acetaminophen 325 Mg Tab PO 650 mg Q6H PRN Administration Pain MILD(1-3)/Fever >100.5/PACHECO Hydrocodone Bitart/Acetaminophen 2 each 06/11/22 14:10 06/12/22 17:56 Hydrocodone/Acetaminophen 5-325 Mg Tab PO 2 each Q6H PRN Administration Pain, Moderate (4-6) Albuterol 2.5 mg 06/08/22 17:35 Albuterol 2.5 Mg/3 Ml Nebu IH Q3HRT PRN Shortness Of Breath Amlodipine Besylate 10 mg 06/12/22 10:00 06/13/22 09:44 Amlodipine 10 Mg Tab PO Not Given QDAY DARRYL Apixaban 5 mg 06/13/22 10:00 06/13/22 09:30 Apixaban 5 Mg Tab PO 5 mg Q12HR DARRYL Administration Protocol Cetirizine HCl 10 mg 06/09/22 10:00 06/13/22 09:30 Cetirizine 10 Mg Tab PO 10 mg DAILY DARRYL Administration Cilostazol 100 mg 06/12/22 11:00 06/12/22 21:05 Cilostazol 100 Mg Tab PO 100 mg BID DARRYL Administration Clopidogrel Bisulfate 75 mg 06/13/22 10:00 06/13/22 09:30 Clopidogrel 75 Mg Tab PO 75 mg QDAY DARRYL Administration Dextrose 50 ml 06/09/22 12:27 Dextrose 50% In Water (25gm) 50 Ml Syringe IV Q30MIN PRN Hypoglycemia Protocol Docusate Sodium 100 mg 06/11/22 22:00 06/13/22 09:30 Docusate Sodium 100 Mg Cap PO 100 mg BID DARRYL Administration Donepezil HCl 10 mg 06/08/22 22:00 06/12/22 21:05 Donepezil 10 Mg Tab PO 10 mg QHS DARRYL Administration Hydralazine HCl 10 mg 06/11/22 10:05 06/12/22 06:05 Hydralazine 20 Mg/1 Ml Inj IV 10 mg Q4HR PRN Administration Hypertension Hydralazine HCl 25 mg 06/12/22 14:00 06/13/22 05:10 Hydralazine 25 Mg Tab PO 25 mg Q8HR DARRYL Administration Hydromorphone HCl 0.5 mg 06/11/22 14:16 Hydromorphone 0.5 Mg/0.5 Ml Inj IV Q2H PRN Pain , Severe (7-10) Insulin Glargine 30 units 06/13/22 22:00 Insulin Glargine 100 Units/Ml SUB-Q QHS [facility] Insulin Human Lispro 0 unit 06/09/22 16:30 06/13/22 08:34 Insulin Lispro 100 Unit/Ml SUB-Q 4 unit ACHS DARRYL Administration Protocol Insulin Human Lispro 8 unit 06/11/22 11:30 06/13/22 08:34 Insulin Lispro 100 Unit/Ml SUB-Q 8 unit AC [facility] Administration Miscellaneous Medication 50 mg 06/08/22 22:00 06/09/22 06:16 Fluvoxamine Maleate [Fluvoxamine Maleate] PO Not Given QHS [facility] Ondansetron HCl 4 mg 06/11/22 14:10 Ondansetron 4 Mg/2 Ml Inj IV Q8H PRN Nausea And Vomiting Oxycodone/Acetaminophen 1 tab 06/08/22 17:35 06/12/22 20:49 Oxycodone /Acetaminophen 5-325mg Tab PO 1 tab Q6H PRN Administration Pain, Moderate (4-6) Pantoprazole Sodium 40 mg 06/12/22 16:30 06/13/22 09:30 Pantoprazole 40 Mg Tab PO 40 mg BIDAC DARRYL Administration Risperidone 4 mg 06/08/22 22:00 06/12/22 21:05 Risperidone 1 Mg Tab PO 4 mg QHS DARRYL Administration Sodium Chloride 10 ml 06/08/22 22:00 06/13/22 09:33 Sodium Chloride 0.9% 10 Ml Flush Syringe IV 10 ml BID DARRYL Administration Sodium Chloride 10 ml 06/08/22 17:35 06/10/22 01:27 Sodium Chloride 0.9% 10 Ml Flush Syringe IV 10 ml PRN PRN Administration LINE FLUSH Trazodone HCl 200 mg 06/08/22 22:00 06/12/22 21:05 Trazodone 100 Mg Tab PO 200 mg QHS DARRYL Administration <MARVA BRICE - Last Filed: 06/14/22 14:21> History Interval history: I saw and evaluated the patient. Discussed with the nurse practitioner and agree with their findings and plan as documented in this note. Hospitalist Physical - Constitutional Vitals: Temp Pulse Resp BP Pulse Ox 98.2 F 79 16 123/54 97 06/14/22 12:00 06/14/22 14:00 06/14/22 14:00 06/14/22 14:00 06/14/22 14:00 Results - Labs CBC & Chem 7: 06/14/22 04:28 06/14/22 04:28 Labs: Laboratory Last Values WBC 5.0 K/mm3 (4.5-11.0) 06/13/22 03:19 RBC 3.81 M/mm3 (3.65-5.03) 06/13/22 03:19 Hgb 11.0 gm/dl (11.8-15.2) L 06/14/22 04:28 Hct 32.7 % (35.5-45.6) L 06/14/22 04:28 MCV 91 fl (84-94) 06/13/22 03:19 MCH 31 pg (28-32) 06/13/22 03:19 MCHC 34 % (32-34) 06/13/22 03:19 RDW 14.9 % (13.2-15.2) 06/13/22 03:19 Plt Count 123 K/mm3 (140-440) L 06/13/22 03:19 Lymph % (Auto) 14.2 % (13.4-35.0) 06/12/22 09:35 Karnes % (Auto) 9.1 % (0.0-7.3) H 06/12/22 09:35 Eos % (Auto) 0.1 % (0.0-4.3) 06/12/22 09:35 Baso % (Auto) 0.4 % (0.0-1.8) 06/12/22 09:35 Lymph # (Auto) 0.8 K/mm3 (1.2-5.4) L 06/12/22 09:35 Karnes # (Auto) 0.5 K/mm3 (0.0-0.8) 06/12/22 09:35 Eos # (Auto) 0.0 K/mm3 (0.0-0.4) 06/12/22 09:35 Baso # (Auto) 0.0 K/mm3 (0.0-0.1) 06/12/22 09:35 Seg Neutrophils % 76.2 % (40.0-70.0) H 06/12/22 09:35 Seg Neutrophils # 4.2 K/mm3 (1.8-7.7) 06/12/22 09:35 PT 16.2 Sec. (12.2-14.9) H 06/12/22 11:02 INR 1.16 (0.87-1.13) H 06/12/22 11:02 APTT 188.7 Sec. (24.2-36.6) H* 06/12/22 11:02 Fibrinogen 313 mg/dl (211-480) 06/12/22 09:35 Heparin Anti-Xa Level 0.73 U.I./ml (0.3-0.7) H 06/13/22 05:49 Sodium 140 mmol/L (137-145) 06/14/22 04:28 Potassium 4.0 mmol/L (3.6-5.0) 06/14/22 04:28 Chloride 109.4 mmol/L (98-107) H 06/14/22 04:28 Carbon Dioxide 19 mmol/L (22-30) L 06/14/22 04:28 Anion Gap 16 mmol/L 06/14/22 04:28 BUN 21 mg/dL (9-20) H 06/14/22 04:28 Creatinine 1.2 mg/dL (0.8-1.3) 06/14/22 04:28 Estimated GFR > 60 ml/min 06/14/22 04:28 BUN/Creatinine Ratio 18 % 06/14/22 04:28 Glucose 186 mg/dL (75-100) H 06/14/22 04:28 POC Glucose 237 mg/dL (70-105) H 06/14/22 11:30 Calcium 8.7 mg/dL (8.4-10.2) 06/14/22 04:28 Magnesium 2.20 mg/dL (1.7-2.3) 06/10/22 13:30 Total Bilirubin 0.40 mg/dL (0.1-1.2) 06/08/22 17:59 AST 17 units/L (5-40) 06/08/22 17:59 ALT 18 units/L (7-56) 06/08/22 17:59 Alkaline Phosphatase 77 units/L (35-129) 06/08/22 17:59 Total Protein 7.8 g/dL (6.3-8.2) 06/08/22 17:59 Albumin 4.5 g/dL (3.9-5) 06/08/22 17:59 Albumin/Globulin Ratio 1.4 % 06/08/22 17:59 TSH 3.030 mlU/mL (0.270-4.200) 06/10/22 13:30 Urine Creatinine 260.3 mg/dL (0.1-20.0) H 06/13/22 08:35 Urine Sodium 66 mmol/L 06/13/22 08:35 Urine Urea Nitrogen 1047 06/13/22 08:35 Blood Type O POSITIVE 06/11/22 16:54 Antibody Screen Negative 06/11/22 16:54 Khalil/IV: Voiding Method Condom Catheter Active Medications - Current Medications Current Medications: Generic Name Dose Route Start Last Admin Trade Name Freq PRN Reason Stop Dose Admin Acetaminophen 650 mg 06/08/22 17:35 06/09/22 20:46 Acetaminophen 325 Mg Tab PO 650 mg Q6H PRN Administration Pain MILD(1-3)/Fever >100.5/PACHECO Hydrocodone Bitart/Acetaminophen 2 each 06/11/22 14:10 06/14/22 07:03 Hydrocodone/Acetaminophen 5-325 Mg Tab PO 2 each Q6H PRN Administration Pain, Moderate (4-6) Albuterol 2.5 mg 06/08/22 17:35 Albuterol 2.5 Mg/3 Ml Nebu IH Q3HRT PRN Shortness Of Breath Amlodipine Besylate 10 mg 06/12/22 10:00 06/14/22 09:45 Amlodipine 10 Mg Tab PO 10 mg QDAY DARRYL Administration Apixaban 5 mg 06/13/22 10:00 06/14/22 09:47 Apixaban 5 Mg Tab PO 5 mg Q12HR DARRYL Administration Protocol Cetirizine HCl 10 mg 06/09/22 10:00 06/14/22 09:45 Cetirizine 10 Mg Tab PO 10 mg DAILY DARRYL Administration Cilostazol 100 mg 06/12/22 11:00 06/14/22 09:45 Cilostazol 100 Mg Tab PO 100 mg BID DARRYL Administration Clopidogrel Bisulfate 75 mg 06/13/22 10:00 06/14/22 09:47 Clopidogrel 75 Mg Tab PO 75 mg QDAY DARRYL Administration Dextrose 50 ml 06/09/22 12:27 Dextrose 50% In Water (25gm) 50 Ml Syringe IV Q30MIN PRN Hypoglycemia Protocol Docusate Sodium 100 mg 06/11/22 22:00 06/14/22 09:44 Docusate Sodium 100 Mg Cap PO 100 mg BID DARRYL Administration Donepezil HCl 10 mg 06/08/22 22:00 06/13/22 22:46 Donepezil 10 Mg Tab PO 10 mg QHS DARRYL Administration Hydralazine HCl 10 mg 06/11/22 10:05 06/14/22 04:11 Hydralazine 20 Mg/1 Ml Inj IV 10 mg Q4HR PRN Administration Hypertension Hydralazine HCl 25 mg 06/12/22 14:00 06/14/22 06:55 Hydralazine 25 Mg Tab PO 25 mg Q8HR DARRYL Administration Hydromorphone HCl 0.5 mg 06/11/22 14:16 Hydromorphone 0.5 Mg/0.5 Ml Inj IV Q2H PRN Pain , Severe (7-10) Insulin Glargine 40 units 06/14/22 22:00 Insulin Glargine 100 Units/Ml SUB-Q QHS DARRYL Insulin Human Lispro 0 unit 06/09/22 16:30 06/14/22 12:30 Insulin Lispro 100 Unit/Ml SUB-Q 4 unit ACHS DARRYL Administration Protocol Insulin Human Lispro 8 unit 06/11/22 11:30 06/14/22 12:30 Insulin Lispro 100 Unit/Ml SUB-Q 8 unit AC DARRYL Administration Ondansetron HCl 4 mg 06/11/22 14:10 Ondansetron 4 Mg/2 Ml Inj IV Q8H PRN Nausea And Vomiting Oxycodone/Acetaminophen 1 tab 06/08/22 17:35 06/14/22 12:32 Oxycodone /Acetaminophen 5-325mg Tab PO 1 tab Q6H PRN Administration Pain, Moderate (4-6) Pantoprazole Sodium 40 mg 06/12/22 16:30 06/14/22 09:45 Pantoprazole 40 Mg Tab PO 40 mg BIDAC DARRYL Administration Risperidone 4 mg 06/08/22 22:00 06/13/22 22:45 Risperidone 1 Mg Tab PO 4 mg QHS DARRYL Administration Sodium Chloride 10 ml 06/08/22 22:00 06/14/22 09:48 Sodium Chloride 0.9% 10 Ml Flush Syringe IV 10 ml BID DARRYL Administration Sodium Chloride 10 ml 06/08/22 17:35 06/10/22 01:27 Sodium Chloride 0.9% 10 Ml Flush Syringe IV 10 ml PRN PRN Administration LINE FLUSH Trazodone HCl 200 mg 06/08/22 22:00 06/13/22 22:45 Trazodone 100 Mg Tab PO 200 mg QHS DARRYL Administration
[2022-06-13] MEDS: CILOSTAZOL 100 MG TAB PO SCH ×2 (12:08→22:45)
--- NOTE | 2022-06-13 12:11 | Progress Note ---
Assessment and Plan Pt is a 77-year-old AA male with a hx of HTN, DM2, chronic sinus bradycardia, cerebral atherosclerosis, vascular dementia, and schizophrenia who is currently admitted per Vas Surg recs for SFA occlusion. Chronic Sinus Bradycardia ?Intermittent Junctional Rhythm PVD / SFA Occlusion PATRICIA HTN DM2 Cerebral Atherosclerosis Vascular Dementia Schizophrenia Echo 06/10/2022-EF 65 to 70%. Borderline concentric LVH. Right ventricle is normal in size. Right ventricle systolic function is normal. There is mild tricuspid regurgitation Plan: Telemetry reviewed patient sinus 60s to 70s on monitor with no events. Due to previous bradycardia would recommend avoiding AV pham blocking agents. Patient is not on a BB per his [employer] @ [place] (Dr. Haas). No appreciable indication for BB. Cardiac status otherwise stable. Will see as needed Patient to follow-up with her primary esthetician makeup artist 1 to 2 weeks after discharge Pt seen in conjunction with Dr. Adriano Epstein, who agrees with the assessment and plan of care. - Patient Problems (1) Arterial occlusion, lower extremity Current Visit: Yes Status: Acute (2) Hyperkalemia Current Visit: Yes Status: Acute (3) Ischemia of left lower extremity Current Visit: Yes Status: Acute (4) Sinus bradycardia Current Visit: Yes Status: Chronic (5) Cerebral atherosclerosis Current Visit: No Status: Acute (6) Hypertension Current Visit: No Status: Acute Qualifiers: Hypertension type: primary hypertension Qualified Code(s): I10 - Essential (primary) hypertension (7) Schizophrenia Current Visit: No Status: Acute Qualifiers: Schizophrenia type: unspecified Qualified Code(s): F20.9 - Schizophrenia, unspecified (8) Vascular dementia with behavioral disturbance Current Visit: No Status: Acute Subjective Date of service: 06/13/22 Principal diagnosis: PVD with subacute arterial occlusion of his left SFA Interval history: Patient resting in bed in no acute distress. Patient reports some foot pain this a.m. Sinus 60s to 70s on monitor with no events Objective Vital Signs Temp Pulse Pulse Resp BP Pulse Ox 06/13/22 11:00 84 15 133/69 99 06/13/22 10:00 59 L 13 93/45 99 06/13/22 09:45 93/45 06/13/22 09:44 93/45 06/13/22 09:00 64 15 93/45 100 06/13/22 08:00 98.6 F 95 H 76 20 105/42 95 06/13/22 07:00 89 12 136/52 97 06/13/22 06:00 67 12 141/52 97 06/13/22 05:10 129/53 06/13/22 05:00 68 11 L 129/53 96 06/13/22 04:00 98.9 F 67 66 10 L 145/51 97 06/13/22 03:00 66 14 116/44 97 06/13/22 02:00 64 13 132/47 97 06/13/22 01:00 71 14 128/47 96 06/13/22 00:00 63 64 15 121/46 97 06/12/22 23:44 98.2 F 06/12/22 23:22 61 06/12/22 23:16 58 L 13 129/49 98 06/12/22 23:00 60 14 129/49 95 06/12/22 22:00 62 15 147/51 97 06/12/22 21:00 67 15 147/51 97 06/12/22 20:49 99.9 F H 06/12/22 20:00 65 17 151/58 98 06/12/22 19:30 64 16 150/49 98 06/12/22 19:15 65 65 100 06/12/22 19:06 67 17 98 06/12/22 18:45 76 22 165/59 99 06/12/22 18:30 75 19 165/59 98 06/12/22 18:15 73 25 H 157/58 100 06/12/22 18:01 80 24 157/58 97 06/12/22 17:45 73 23 125/58 99 06/12/22 17:31 87 25 H 125/58 96 06/12/22 17:15 89 18 164/66 96 06/12/22 17:00 70 20 164/66 99 06/12/22 16:45 72 19 175/64 99 06/12/22 16:31 85 14 175/64 96 06/12/22 16:29 98.5 F 06/12/22 16:15 68 16 176/67 97 06/12/22 16:00 61 55 L 16 178/67 97 06/12/22 15:45 72 16 170/75 99 06/12/22 15:31 73 21 131/60 95 06/12/22 15:15 57 L 16 175/64 98 06/12/22 15:00 64 16 174/69 98 06/12/22 14:45 61 16 180/62 98 06/12/22 14:31 57 L 17 171/61 98 06/12/22 14:30 61 170/75 06/12/22 14:15 60 14 154/60 92 06/12/22 14:00 67 16 151/61 98 06/12/22 13:45 77 20 127/58 99 06/12/22 13:30 61 17 152/58 100 06/12/22 13:15 59 L 16 149/56 99 06/12/22 13:00 59 L 16 147/55 99 06/12/22 12:45 58 L 15 138/55 99 06/12/22 12:31 59 L 16 139/56 99 06/12/22 12:15 63 18 140/55 98 - Physical Examination General: No Apparent Distress HEENT: Positive: EOMI, Normocephaly Neck: Positive: neck supple, trachea midline. Negative: JVD/HJR Cardiac: Positive: Reg Rate and Rhythm Lungs: Positive: Normal Breath Sounds Neuro: Positive: Grossly Intact Abdomen: Positive: Soft. Negative: Tender Skin: Negative: Rash Musculoskeletal: No Pain Extremities: Present: warm. Absent: edema - Labs and Meds CBC 06/13/22 Range/Units 03:19 WBC 5.0 (4.5-11.0) K/mm3 RBC 3.81 (3.65-5.03) M/mm3 Hgb 11.7 L (11.8-15.2) gm/dl Hct 34.6 L (35.5-45.6) % Plt Count 123 L (140-440) K/mm3 Comprehensive Metabolic Panel 06/13/22 Range/Units 03:19 Sodium 141 (137-145) mmol/L Potassium 4.0 (3.6-5.0) mmol/L Chloride 110.2 H (98-107) mmol/L Carbon Dioxide 20 L (22-30) mmol/L BUN 19 (9-20) mg/dL Creatinine 1.4 H (0.8-1.3) mg/dL Glucose 225 H (75-100) mg/dL Calcium 8.4 (8.4-10.2) mg/dL - Imaging and Cardiology EKG: report reviewed, image reviewed Echo: report reviewed - Telemetry EKG Rhythm: Sinus Rhythm - EKG Sinus rhythms and dysrhythmias: sinus rhythm AV and intraventricular conduction: 1 AV block Repolarization changes or abnormalities: nonspecific abnormality, ST segment, and/or T wave
[2022-06-13] MEDS: oxyCODONE /ACETAMINOPHEN 5-325MG TAB PO PRN (19:09)
[2022-06-13 20:07] LABS: Creatinine,Urine 260.3 mg/dL (0.1-20.0)
[2022-06-13] MEDS ORDERED: INSULIN GLARGINE 100 UNITS/ML SUB-Q SCH (22:00)
[2022-06-13] MEDS: traZODone 100 MG TAB PO SCH (22:45)
[2022-06-13] MEDS: risperiDONE 1 MG TAB PO SCH (22:45)
[2022-06-13] MEDS: DONEPEZIL 10 MG TAB PO SCH (22:46)
[2022-06-14] MEDS: oxyCODONE /ACETAMINOPHEN 5-325MG TAB PO PRN ×2 (02:37→12:32)
[2022-06-14] MEDS: hydrALAZINE 20 MG/1 ML INJ IV PRN (04:11)
[2022-06-14 04:52] LABS: Hematocrit 32.7 % (35.5-45.6)
[2022-06-14 05:09] LABS: BUN/Creatinine Ratio 18; Blood Urea Nitrogen 21 mg/dL (9-20); Calcium 8.7 mg/dL (8.4-10.2); Hemolysis Index 4
[2022-06-14] MEDS: hydrALAZINE 25 MG TAB PO SCH ×3 (06:55→23:44)
[2022-06-14] MEDS: HYDROcodone/ACETAMINOPHEN 5-325 MG TAB PO PRN (07:03)
[2022-06-14] MEDS: DOCUSATE SODIUM 100 MG CAP PO SCH ×2 (09:44→23:44)
[2022-06-14] MEDS: amLODIPine 10 MG TAB PO SCH (09:45)
[2022-06-14] MEDS: CILOSTAZOL 100 MG TAB PO SCH ×2 (09:45→23:47)
[2022-06-14] MEDS: PANTOPRAZOLE 40 MG TAB PO SCH ×2 (09:45→17:23)
[2022-06-14] MEDS: CETIRIZINE 10 MG TAB PO SCH (09:45)
[2022-06-14] MEDS: INSULIN LISPRO 100 UNIT/ML SUB-Q SCH ×7 (09:46→23:42)
[2022-06-14] MEDS: CLOPIDOGREL 75 MG TAB PO SCH (09:47)
[2022-06-14] MEDS: APIXABAN 5 MG TAB PO SCH ×2 (09:47→23:43)
--- NOTE | 2022-06-14 12:06 | Progress Note ---
Assessment and Plan Assessment and plan: This is a 77-year-old male with vascular dementia with behavior disturbance, cerebralatherosclerosis, schizophrenia, DM, HTN And PVD admitted with subacute SFA occlusion Neuro: h/o vascular dementia with behavior disturbance, schizophrenia, cerebral atherosclerosis -Reorientation as needed -Maintain sleep-wake cycle -As needed analgesia -Resume risperdal, trazadone, aricept, fluvoxamine maleatme -Continue supportive care -PT/OT consulted, appreciate recommendations -f/u with family re home meds Cardiac: h/o chronic SB, intermittent junctional rhythm, HTN -Cardiology consulted, appreciate recommendations -Blood pressure monitoring per protocol -Antihypertension regimen: amlodipine, lisinopril -Per cardio: Avoid AV pham blocking agents. TSH and MG were within normal limits -No cardiac contraindications to proceeding with vascular intervention as planned. -Echocardiogram EF 65 to 70%. Borderline concentric LVH. Respiratory: NAD, Right upper lobe nodule -CCM consulted, appreciate recommendations -Pulmonary hygiene -SpO2 monitoring per protocol -Noted on CTA, single incidental pulmonary nodule(s) in the right upper lobe measuring 5 mm with solid characteristics. -Follow up outpatient for further evaluation GI: NAD -24 hours -241 mL -PPI -CC diet -BR: colace : Acute kidney injury likely secondary to vasomotor nephropathy, Hyperchloremic metabolic acidosis -Monitor intake and output -Renally dose medications -s/p IVF -Avoid nephrotoxic medications -Urine lytes pending -Trend BMP ID: NAD -Antibiotic therapy with clindamycin preop -Monitor WBC and temperature curve Endo: h/o DM -CC diet -Avoid hypoglycemia -SSI -Accu-Cheks q. 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 The aggregate critical care time was [60] minutes. This time is in addition to time spent performing reported procedures but includes the following: [x] Data Review and interpretation [x] Patient assessment and monitoring of vital signs [x] Documentation [x] Medication orders and management Disposition Plan: transfer to floor Total Time Spent with Patient (Minutes): 60 History Interval history: This is a 77-year-old male with vascular dementia with behavior disturbance, CVA, cerebral atherosclerosis, schizophrenia, DM, HTN, PVD who presented to emergency department on 06/08 with complaints of left foot pain over the past 3 weeks and discoloration from his vascular surgeon's office where he was found to have left lower extremity ischemia via private vehicle. Patient was initially on heparin drip, vascular surgery team was consulted patient was admitted to the hospital service in [facility] with a subacute SFA occlusion. Hospital Course to Date: 06/09: Remains on heaprin gtt per protocol. Vascular Surgery recommendations noted, plan for possible revascularization procedure likely on Saturday. Patient also noted with SB, HR in the 30s. Home BB held, cardiology also consulted for further eval and clearance for possible vascular procedure. 06/10: Remains stable on RA. Heparin gtt per protocol. Per Vascular surgery plan for [employer] for placement of EKOS catheter with possible other intervention tomorrow, N.p.o. after midnight. Remains in bradycardic, BP stable, Cardiology recommendations noted. SSI adjusted and Lantus Qhs added for hyperglycemia. 06/11: S/p EKOS to left lower extremity, transferred to ICU postprocedure. Increase in Lantus and restarted lispro 8 units AC and IV hydralazine as needed ordered. 06/12: EKOs removed today. Per Dr. Escamilla, pt will transition to DOAC tomorrow. Can transfer to [facility] if needed 06/13: Transitioned to DOAC today. Increase in Cr noted and BP soft therefore will give 1x LR bolus and obtain urine lytes. 06/14: Increase in lantus, still complaining of "not feeling well" and leg pain. Hospitalist Physical - Constitutional Vitals: Temp Pulse Resp BP Pulse Ox 98.6 F 62 13 164/59 100 06/14/22 08:00 06/14/22 11:00 06/14/22 11:00 06/14/22 11:00 06/14/22 11:00 General appearance: Present: no acute distress - EENT Eyes: Present: PERRL, EOM intact ENT: hearing intact, clear oral mucosa, dentition normal - Neck Neck: Present: normal ROM - Respiratory Respiratory effort: normal Respiratory: bilateral: CTA - Cardiovascular Rhythm: regular Heart Sounds: Present: S1 & S2. Absent: systolic murmur, diastolic murmur - Extremities Extremities: no ischemia, pulses intact, pulses symmetrical, No edema, normal temperature, normal color Peripheral Pulses: within normal limits - Abdominal General gastrointestinal: soft, non-tender, non-distended, normal bowel sounds - Integumentary Integumentary: Present: warm, dry - Psychiatric Psychiatric: appropriate mood/affect, cooperative - Neurologic Neurologic: moves all extremities - Allied Health Allied health notes reviewed: nursing, RT, social work Results - Labs CBC & Chem 7: 06/14/22 04:28 06/14/22 04:28 Labs: Laboratory Last Values WBC 5.0 K/mm3 (4.5-11.0) 06/13/22 03:19 RBC 3.81 M/mm3 (3.65-5.03) 06/13/22 03:19 Hgb 11.0 gm/dl (11.8-15.2) L 06/14/22 04:28 Hct 32.7 % (35.5-45.6) L 06/14/22 04:28 MCV 91 fl (84-94) 06/13/22 03:19 MCH 31 pg (28-32) 06/13/22 03:19 MCHC 34 % (32-34) 06/13/22 03:19 RDW 14.9 % (13.2-15.2) 06/13/22 03:19 Plt Count 123 K/mm3 (140-440) L 06/13/22 03:19 Lymph % (Auto) 14.2 % (13.4-35.0) 06/12/22 09:35 [place] % (Auto) 9.1 % (0.0-7.3) H 06/12/22 09:35 Eos % (Auto) 0.1 % (0.0-4.3) 06/12/22 09:35 Baso % (Auto) 0.4 % (0.0-1.8) 06/12/22 09:35 Lymph # (Auto) 0.8 K/mm3 (1.2-5.4) L 06/12/22 09:35 [place] # (Auto) 0.5 K/mm3 (0.0-0.8) 06/12/22 09:35 Eos # (Auto) 0.0 K/mm3 (0.0-0.4) 06/12/22 09:35 Baso # (Auto) 0.0 K/mm3 (0.0-0.1) 06/12/22 09:35 Seg Neutrophils % 76.2 % (40.0-70.0) H 06/12/22 09:35 Seg Neutrophils # 4.2 K/mm3 (1.8-7.7) 06/12/22 09:35 PT 16.2 Sec. (12.2-14.9) H 06/12/22 11:02 INR 1.16 (0.87-1.13) H 06/12/22 11:02 APTT 188.7 Sec. (24.2-36.6) H* 06/12/22 11:02 Fibrinogen 313 mg/dl (211-480) 06/12/22 09:35 Heparin Anti-Xa Level 0.73 U.I./ml (0.3-0.7) H 06/13/22 05:49 Sodium 140 mmol/L (137-145) 06/14/22 04:28 Potassium 4.0 mmol/L (3.6-5.0) 06/14/22 04:28 Chloride 109.4 mmol/L (98-107) H 06/14/22 04:28 Carbon Dioxide 19 mmol/L (22-30) L 06/14/22 04:28 Anion Gap 16 mmol/L 06/14/22 04:28 BUN 21 mg/dL (9-20) H 06/14/22 04:28 Creatinine 1.2 mg/dL (0.8-1.3) 06/14/22 04:28 Estimated GFR > 60 ml/min 06/14/22 04:28 BUN/Creatinine Ratio 18 % 06/14/22 04:28 Glucose 186 mg/dL (75-100) H 06/14/22 04:28 POC Glucose 237 mg/dL (70-105) H 06/14/22 11:30 Calcium 8.7 mg/dL (8.4-10.2) 06/14/22 04:28 Magnesium 2.20 mg/dL (1.7-2.3) 06/10/22 13:30 Total Bilirubin 0.40 mg/dL (0.1-1.2) 06/08/22 17:59 AST 17 units/L (5-40) 06/08/22 17:59 ALT 18 units/L (7-56) 06/08/22 17:59 Alkaline Phosphatase 77 units/L (35-129) 06/08/22 17:59 Total Protein 7.8 g/dL (6.3-8.2) 06/08/22 17:59 Albumin 4.5 g/dL (3.9-5) 06/08/22 17:59 Albumin/Globulin Ratio 1.4 % 06/08/22 17:59 TSH 3.030 mlU/mL (0.270-4.200) 06/10/22 13:30 Urine Creatinine 260.3 mg/dL (0.1-20.0) H 06/13/22 08:35 Urine Sodium 66 mmol/L 06/13/22 08:35 Urine Urea Nitrogen 1047 06/13/22 08:35 Blood Type O POSITIVE 06/11/22 16:54 Antibody Screen Negative 06/11/22 16:54 Khalil/IV: Voiding Method Condom Catheter Active Medications - Current Medications Current Medications: Generic Name Dose Route Start Last Admin Trade Name Freq PRN Reason Stop Dose Admin Acetaminophen 650 mg 06/08/22 17:35 06/09/22 20:46 Acetaminophen 325 Mg Tab PO 650 mg Q6H PRN Administration Pain MILD(1-3)/Fever >100.5/PACHECO Hydrocodone Bitart/Acetaminophen 2 each 06/11/22 14:10 06/14/22 07:03 Hydrocodone/Acetaminophen 5-325 Mg Tab PO 2 each Q6H PRN Administration Pain, Moderate (4-6) Albuterol 2.5 mg 06/08/22 17:35 Albuterol 2.5 Mg/3 Ml Nebu IH Q3HRT PRN Shortness Of Breath Amlodipine Besylate 10 mg 06/12/22 10:00 06/14/22 09:45 Amlodipine 10 Mg Tab PO 10 mg QDAY DARRYL Administration Apixaban 5 mg 06/13/22 10:00 06/14/22 09:47 Apixaban 5 Mg Tab PO 5 mg Q12HR DARRYL Administration Protocol Cetirizine HCl 10 mg 06/09/22 10:00 06/14/22 09:45 Cetirizine 10 Mg Tab PO 10 mg DAILY DARRYL Administration Cilostazol 100 mg 06/12/22 11:00 06/14/22 09:45 Cilostazol 100 Mg Tab PO 100 mg BID DARRYL Administration Clopidogrel Bisulfate 75 mg 06/13/22 10:00 06/14/22 09:47 Clopidogrel 75 Mg Tab PO 75 mg QDAY DARRYL Administration Dextrose 50 ml 06/09/22 12:27 Dextrose 50% In Water (25gm) 50 Ml Syringe IV Q30MIN PRN Hypoglycemia Protocol Docusate Sodium 100 mg 06/11/22 22:00 06/14/22 09:44 Docusate Sodium 100 Mg Cap PO 100 mg BID DARRYL Administration Donepezil HCl 10 mg 06/08/22 22:00 06/13/22 22:46 Donepezil 10 Mg Tab PO 10 mg QHS DARRYL Administration Hydralazine HCl 10 mg 06/11/22 10:05 06/14/22 04:11 Hydralazine 20 Mg/1 Ml Inj IV 10 mg Q4HR PRN Administration Hypertension Hydralazine HCl 25 mg 06/12/22 14:00 06/14/22 06:55 Hydralazine 25 Mg Tab PO 25 mg Q8HR DARRYL Administration Hydromorphone HCl 0.5 mg 06/11/22 14:16 Hydromorphone 0.5 Mg/0.5 Ml Inj IV Q2H PRN Pain , Severe (7-10) Insulin Glargine 40 units 06/14/22 22:00 Insulin Glargine 100 Units/Ml SUB-Q QHS [facility] Insulin Human Lispro 0 unit 06/09/22 16:30 06/14/22 09:46 Insulin Lispro 100 Unit/Ml SUB-Q 4 unit ACHS DARRYL Administration Protocol Insulin Human Lispro 8 unit 06/11/22 11:30 06/14/22 09:47 Insulin Lispro 100 Unit/Ml SUB-Q 8 unit AC DARRYL Administration Ondansetron HCl 4 mg 06/11/22 14:10 Ondansetron 4 Mg/2 Ml Inj IV Q8H PRN Nausea And Vomiting Oxycodone/Acetaminophen 1 tab 06/08/22 17:35 06/14/22 02:37 Oxycodone /Acetaminophen 5-325mg Tab PO 1 tab Q6H PRN Administration Pain, Moderate (4-6) Pantoprazole Sodium 40 mg 06/12/22 16:30 06/14/22 09:45 Pantoprazole 40 Mg Tab PO 40 mg BIDAC DARRYL Administration Risperidone 4 mg 06/08/22 22:00 06/13/22 22:45 Risperidone 1 Mg Tab PO 4 mg QHS DARRYL Administration Sodium Chloride 10 ml 06/08/22 22:00 06/14/22 09:48 Sodium Chloride 0.9% 10 Ml Flush Syringe IV 10 ml BID DARRYL Administration Sodium Chloride 10 ml 06/08/22 17:35 06/10/22 01:27 Sodium Chloride 0.9% 10 Ml Flush Syringe IV 10 ml PRN PRN Administration LINE FLUSH Trazodone HCl 200 mg 06/08/22 22:00 06/13/22 22:45 Trazodone 100 Mg Tab PO 200 mg QHS DARRYL Administration
--- NOTE | 2022-06-14 13:40 | Progress Note ---
Assessment and Plan The patient is doing well and has adequate perfusion of his left lower extremity. He can be discharged when medically stable. Subjective Date of service: 06/14/22 Principal diagnosis: PVD with subacute arterial occlusion of his left SFA Interval history: The patient is resting well on exam. He has no complaints at this time. Objective - Constitutional Vitals: Vital Signs - 12hr 06/14/22 06/14/22 06/14/22 02:00 02:32 02:37 Temperature Pulse Rate 69 Pulse Rate [ 84 Bilateral Femoral] Pulse Rate [ From Monitor] Respiratory 18 12 14 Rate Blood Pressure 178/58 156/68 O2 Sat by Pulse 99 97 Oximetry 06/14/22 06/14/22 06/14/22 03:00 03:37 04:00 Temperature 98.8 F Pulse Rate 74 70 Pulse Rate [ Bilateral Femoral] Pulse Rate [ 70 From Monitor] Respiratory 11 L 16 12 Rate Blood Pressure 168/66 172/64 O2 Sat by Pulse 99 96 Oximetry 06/14/22 06/14/22 06/14/22 04:11 05:00 05:20 Temperature Pulse Rate 65 84 78 Pulse Rate [ Bilateral Femoral] Pulse Rate [ From Monitor] Respiratory 18 Rate Blood Pressure 172/64 159/56 O2 Sat by Pulse 96 Oximetry 06/14/22 06/14/22 06/14/22 06:00 06:55 07:00 Temperature Pulse Rate 70 81 70 Pulse Rate [ Bilateral Femoral] Pulse Rate [ From Monitor] Respiratory 15 17 Rate Blood Pressure 152/47 152/47 165/51 O2 Sat by Pulse 96 95 Oximetry 06/14/22 06/14/22 06/14/22 07:03 08:00 08:03 Temperature 98.6 F Pulse Rate 65 Pulse Rate [ Bilateral Femoral] Pulse Rate [ From Monitor] Respiratory 15 16 20 Rate Blood Pressure 146/49 O2 Sat by Pulse 99 Oximetry 06/14/22 06/14/22 06/14/22 09:00 09:45 10:00 Temperature Pulse Rate 66 65 73 Pulse Rate [ Bilateral Femoral] Pulse Rate [ From Monitor] Respiratory 13 18 Rate Blood Pressure 155/53 155/53 155/53 O2 Sat by Pulse 99 99 Oximetry 06/14/22 11:00 Temperature Pulse Rate 62 Pulse Rate [ Bilateral Femoral] Pulse Rate [ From Monitor] Respiratory 13 Rate Blood Pressure 164/59 O2 Sat by Pulse 100 Oximetry General appearance: Present: no acute distress - Cardiovascular Rhythm: regular Extremities: abnormal (Left foot is warm and well-perfused, right groin puncture site is free of hematoma or pseudoaneurysm) - Labs CBC & Chem 7: 06/14/22 04:28 06/14/22 04:28 Labs: Abnormal lab results 06/13/22 06/13/22 06/13/22 Range/Units 08:35 16:29 22:53 Hgb (11.8-15.2) gm/dl Hct (35.5-45.6) % Chloride (98-107) mmol/L Carbon Dioxide (22-30) mmol/L BUN (9-20) mg/dL Glucose (75-100) mg/dL POC Glucose 277 H 237 H (70-105) mg/dL Urine Creatinine 260.3 H (0.1-20.0) mg/dL 06/14/22 06/14/22 06/14/22 Range/Units 04:28 04:28 08:44 Hgb 11.0 L (11.8-15.2) gm/dl Hct 32.7 L (35.5-45.6) % Chloride 109.4 H (98-107) mmol/L Carbon Dioxide 19 L (22-30) mmol/L BUN 21 H (9-20) mg/dL Glucose 186 H (75-100) mg/dL POC Glucose 232 H (70-105) mg/dL Urine Creatinine (0.1-20.0) mg/dL 06/14/22 Range/Units 11:30 Hgb (11.8-15.2) gm/dl Hct (35.5-45.6) % Chloride (98-107) mmol/L Carbon Dioxide (22-30) mmol/L BUN (9-20) mg/dL Glucose (75-100) mg/dL POC Glucose 237 H (70-105) mg/dL Urine Creatinine (0.1-20.0) mg/dL Medications & Allergies - Medications Allergies/Adverse Reactions: Allergies Penicillins Allergy (Intermediate, Verified 02/07/22 23:25) Rash Home Medications: Home Medications Medication Instructions Recorded Confirmed Last Taken Type Loratadine (Nf) [Claritin (Nf)] 10 mg PO DAILY 01/09/16 06/09/22 06/08/22 09:00 History amLODIPine 5 mg PO DAILY 01/09/16 06/09/22 06/08/22 09:00 History carvediloL [Coreg] 3.125 mg PO BID 01/09/16 06/09/22 06/08/22 09:00 History donepeziL [Aricept] 10 mg PO QHS 01/09/16 06/09/22 06/07/22 21:00 History lisinopriL [Zestril TAB] 20 mg PO QDAY 01/09/16 06/09/22 06/08/22 09:00 History risperiDONE [RisperDAL] 4 mg PO QHS 01/09/16 06/09/22 06/07/22 21:00 History traZODone [Desyrel] 200 mg PO QHS 01/09/16 06/09/22 06/07/22 21:00 History Insulin Glargine [Lantus VIAL] 15 units SUB-Q QAMDIAB #1 units 01/12/16 06/09/22 06/08/22 09:00 Rx Insulin Glulisine [Apidra] 8 units SUB-Q AC #1 units 01/12/16 06/09/22 06/08/22 09:00 Rx Active Medications: Generic Name Dose Route Start Last Admin Trade Name Freq PRN Reason Stop Dose Admin Acetaminophen 650 mg 06/08/22 17:35 06/09/22 20:46 Acetaminophen 325 Mg Tab PO 650 mg Q6H PRN Administration Pain MILD(1-3)/Fever >100.5/PACHECO Hydrocodone Bitart/Acetaminophen 2 each 06/11/22 14:10 06/14/22 07:03 Hydrocodone/Acetaminophen 5-325 Mg Tab PO 2 each Q6H PRN Administration Pain, Moderate (4-6) Albuterol 2.5 mg 06/08/22 17:35 Albuterol 2.5 Mg/3 Ml Nebu IH Q3HRT PRN Shortness Of Breath Amlodipine Besylate 10 mg 06/12/22 10:00 06/14/22 09:45 Amlodipine 10 Mg Tab PO 10 mg QDAY DARRYL Administration Apixaban 5 mg 06/13/22 10:00 06/14/22 09:47 Apixaban 5 Mg Tab PO 5 mg Q12HR DARRYL Administration Protocol Cetirizine HCl 10 mg 06/09/22 10:00 06/14/22 09:45 Cetirizine 10 Mg Tab PO 10 mg DAILY DARRYL Administration Cilostazol 100 mg 06/12/22 11:00 06/14/22 09:45 Cilostazol 100 Mg Tab PO 100 mg BID DARRYL Administration Clopidogrel Bisulfate 75 mg 06/13/22 10:00 06/14/22 09:47 Clopidogrel 75 Mg Tab PO 75 mg QDAY DARRYL Administration Dextrose 50 ml 06/09/22 12:27 Dextrose 50% In Water (25gm) 50 Ml Syringe IV Q30MIN PRN Hypoglycemia Protocol Docusate Sodium 100 mg 06/11/22 22:00 06/14/22 09:44 Docusate Sodium 100 Mg Cap PO 100 mg BID DARRYL Administration Donepezil HCl 10 mg 06/08/22 22:00 06/13/22 22:46 Donepezil 10 Mg Tab PO 10 mg QHS DARRYL Administration Hydralazine HCl 10 mg 06/11/22 10:05 06/14/22 04:11 Hydralazine 20 Mg/1 Ml Inj IV 10 mg Q4HR PRN Administration Hypertension Hydralazine HCl 25 mg 06/12/22 14:00 06/14/22 06:55 Hydralazine 25 Mg Tab PO 25 mg Q8HR DARRYL Administration Hydromorphone HCl 0.5 mg 06/11/22 14:16 Hydromorphone 0.5 Mg/0.5 Ml Inj IV Q2H PRN Pain , Severe (7-10) Insulin Glargine 40 units 06/14/22 22:00 Insulin Glargine 100 Units/Ml SUB-Q QHS [facility] Insulin Human Lispro 0 unit 06/09/22 16:30 06/14/22 12:30 Insulin Lispro 100 Unit/Ml SUB-Q 4 unit ACHS DARRYL Administration Protocol Insulin Human Lispro 8 unit 06/11/22 11:30 06/14/22 12:30 Insulin Lispro 100 Unit/Ml SUB-Q 8 unit AC DARRYL Administration Ondansetron HCl 4 mg 06/11/22 14:10 Ondansetron 4 Mg/2 Ml Inj IV Q8H PRN Nausea And Vomiting Oxycodone/Acetaminophen 1 tab 06/08/22 17:35 06/14/22 12:32 Oxycodone /Acetaminophen 5-325mg Tab PO 1 tab Q6H PRN Administration Pain, Moderate (4-6) Pantoprazole Sodium 40 mg 06/12/22 16:30 06/14/22 09:45 Pantoprazole 40 Mg Tab PO 40 mg BIDAC DARRYL Administration Risperidone 4 mg 06/08/22 22:00 06/13/22 22:45 Risperidone 1 Mg Tab PO 4 mg QHS DARRYL Administration Sodium Chloride 10 ml 06/08/22 22:00 06/14/22 09:48 Sodium Chloride 0.9% 10 Ml Flush Syringe IV 10 ml BID DARRYL Administration Sodium Chloride 10 ml 06/08/22 17:35 06/10/22 01:27 Sodium Chloride 0.9% 10 Ml Flush Syringe IV 10 ml PRN PRN Administration LINE FLUSH Trazodone HCl 200 mg 06/08/22 22:00 06/13/22 22:45 Trazodone 100 Mg Tab PO 200 mg QHS DARRYL Administration
[2022-06-14] MEDS ORDERED: INSULIN GLARGINE 100 UNITS/ML SUB-Q SCH ×2 (22:00)
[2022-06-14] MEDS: DONEPEZIL 10 MG TAB PO SCH (23:44)
[2022-06-14] MEDS: risperiDONE 1 MG TAB PO SCH (23:47)
[2022-06-14] MEDS: traZODone 100 MG TAB PO SCH (23:49)
[2022-06-15 05:14] LABS: Hematocrit 35.3 % (35.5-45.6); Hemoglobin 11.7 gm/dl (11.8-15.2); Mean Corpuscular HGB Conc 33 % (32-34); Mean Corpuscular Volume 92 fl (84-94); Platelet Count 138 K/mm3 (140-440); Red Blood Count 3.84 M/mm3 (3.65-5.03); Red Cell Distribution Width 14.8 % (13.2-15.2)
[2022-06-15 05:31] LABS: BUN/Creatinine Ratio 14; Blood Urea Nitrogen 17 mg/dL (9-20); Calcium 8.6 mg/dL (8.4-10.2); Hemolysis Index 56
[2022-06-15] MEDS: hydrALAZINE 25 MG TAB PO SCH ×3 (06:49→22:02)
--- NOTE | 2022-06-15 09:24 | Discharge Summary ---
Providers - Providers Date of Admission: 06/08/22 17:35 Date of discharge: 06/15/22 Attending physician: MARVA BRICE MD 06/08/22 17:35 Consult to Physician [CONS] Routine Comment: Consulting Provider: FERNANDO SILVESTRE Physician Instructions: Reason For Exam: LLE Ischemia 06/09/22 10:05 Consult to Physician [CONS] Routine Comment: Consulting Provider: FRANCISCO JAVIER RANDALL Physician Instructions: Reason For Exam: Bradycardia, PVD with sub-acute occlusion 06/14/22 08:52 Occupational Therapy Evaluate and Treat [CONS] Routine Comment: Reason For Exam: Debility Physical Therapy Evaluation and Treat [CONS] Routine Comment: Reason For Exam: Debility Primary care physician: SUKHDEEP SALAS Hospitalization Condition: Stable Hospital course: Assessment and Plan Assessment and plan: This is a 77-year-old male with vascular dementia with behavior disturbance, cerebralatherosclerosis, schizophrenia, DM, HTN And PVD admitted with subacute SFA occlusion Neuro: h/o vascular dementia with behavior disturbance, schizophrenia, cerebral atherosclerosis -Reorientation as needed -Maintain sleep-wake cycle -As needed analgesia -Resume risperdal, trazadone, aricept, fluvoxamine maleatme -Continue supportive care -PT/OT consulted, appreciate recommendations -f/u with family re home meds Cardiac: h/o chronic SB, intermittent junctional rhythm, HTN -Cardiology consulted, appreciate recommendations -Blood pressure monitoring per protocol -Antihypertension regimen: amlodipine, lisinopril -Per cardio: Avoid AV pham blocking agents. TSH and MG were within normal limits -No cardiac contraindications to proceeding with vascular intervention as planned. -Echocardiogram EF 65 to 70%. Borderline concentric LVH. Respiratory: NAD, Right upper lobe nodule -CCM consulted, appreciate recommendations -Pulmonary hygiene -SpO2 monitoring per protocol -Noted on CTA, single incidental pulmonary nodule(s) in the right upper lobe measuring 5 mm with solid characteristics. -Follow up outpatient for further evaluation GI: NAD -24 hours -241 mL -PPI -CC diet -BR: colace : Acute kidney injury likely secondary to vasomotor nephropathy, Hyperchloremic metabolic acidosis -Monitor intake and output -Renally dose medications -s/p IVF -Avoid nephrotoxic medications -Urine lytes pending -Trend BMP ID: NAD -Antibiotic therapy with clindamycin preop -Monitor WBC and temperature curve Endo: h/o DM -CC diet -Avoid hypoglycemia -SSI -Accu-Cheks q. 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 The aggregate critical care time was [60] minutes. This time is in addition to time spent performing reported procedures but includes the following: [x] Data Review and interpretation [x] Patient assessment and monitoring of vital signs [x] Documentation [x] Medication orders and management Disposition Plan: transfer to floor Total Time Spent with Patient (Minutes): 60 History Interval history: This is a 77-year-old male with vascular dementia with behavior disturbance, CVA, cerebral atherosclerosis, schizophrenia, DM, HTN, PVD who presented to emergency department on 06/08 with complaints of left foot pain over the past 3 weeks and discoloration from his vascular surgeon's office where he was found to have left lower extremity ischemia via private vehicle. Patient was initially on heparin drip, vascular surgery team was consulted patient was admitted to the hospital service in [facility] with a subacute SFA occlusion. Hospital Course to Date: 06/09: Remains on heaprin gtt per protocol. Vascular Surgery recommendations noted, plan for possible revascularization procedure likely on Saturday. Patient also noted with SB, HR in the 30s. Home BB held, cardiology also consulted for further eval and clearance for possible vascular procedure. 06/10: Remains stable on RA. Heparin gtt per protocol. Per Vascular surgery plan for [employer] for placement of EKOS catheter with possible other intervention tomorrow, N.p.o. after midnight. Remains in bradycardic, BP stable, Cardiology recommendations noted. SSI adjusted and Lantus Qhs added for hyperglycemia. 06/11: S/p EKOS to left lower extremity, transferred to ICU postprocedure. Increase in Lantus and restarted lispro 8 units AC and IV hydralazine as needed ordered. 06/12: EKOs removed today. Per Dr. Silvestre, pt will transition to DOAC tomorrow. Can transfer to IMCU if needed 06/13: Transitioned to DOAC today. Increase in Cr noted and BP soft therefore will give 1x LR bolus and obtain urine lytes. 06/14: Increase in lantus, still complaining of "not feeling well" and leg pain. Hospitalist Physical Disposition: HOME / SELF CARE / HOMELESS Final Discharge Diagnosis (Prints w/discharge instructions): Subacute SVF occlusion, Right upper lobe nodule, Acute kidney injury likely secondary to vasomotor nephropathy, Hyperchloremic metabolic acidosis. h/o vascular dementia with behavior disturbance, schizophrenia, cerebral atherosclerosis, chronic SB, intermittent junctional rhythm, HTN, DM Time spent for discharge: 60 Core Measure Documentation - Palliative Care Palliative Care/ Comfort Measures: Not Applicable - Core Measures Any of the following diagnoses?: none Exam - Constitutional Vitals: Temp Pulse Resp BP Pulse Ox 99.5 F 89 24 156/64 98 06/15/22 04:00 06/15/22 06:49 06/15/22 06:00 06/15/22 06:49 06/15/22 05:01 General appearance: Present: no acute distress, mild distress - EENT Eyes: Present: PERRL, EOM intact ENT: hearing intact, clear oral mucosa - Neck Neck: Present: normal ROM - Respiratory Respiratory effort: normal Respiratory: bilateral: CTA - Cardiovascular Rhythm: regular Heart Sounds: Present: S1 & S2. Absent: systolic murmur, diastolic murmur - Extremities Extremities: no ischemia, pulses intact, pulses symmetrical, No edema, normal temperature, normal color Peripheral Pulses: within normal limits - Abdominal General gastrointestinal: Present: soft, non-tender, non-distended, normal bowel sounds - Integumentary Integumentary: Present: warm, dry - Musculoskeletal Musculoskeletal: strength equal bilaterally - Psychiatric Psychiatric: appropriate mood/affect, cooperative - Neurologic Neurologic: CNII-XII intact, no focal deficits, moves all extremities - Allied Health Allied health notes reviewed: nursing, RT, social work Plan Activity: advance as tolerated Diet: diabetic Wound: keep clean and dry, per your surgeon's advice, per wound nurse inst ructions Special Instructions: record daily weights, record daily BP diary, record blood sugar diary Follow up with: SUKHDEEP SALAS MD [Primary Care Provider] - 7 Days
[2022-06-15] MEDS: PANTOPRAZOLE 40 MG TAB PO SCH ×2 (09:25→17:30)
[2022-06-15] MEDS: INSULIN LISPRO 100 UNIT/ML SUB-Q SCH ×7 (09:25→22:41)
[2022-06-15] MEDS: oxyCODONE /ACETAMINOPHEN 5-325MG TAB PO PRN (09:27)
--- NOTE | 2022-06-15 14:12 | Progress Note ---
Assessment and Plan Assessment and plan: This is a 77-year-old male with vascular dementia with behavior disturbance, cerebralatherosclerosis, schizophrenia, DM, HTN And PVD admitted with subacute SFA occlusion Neuro: h/o vascular dementia with behavior disturbance, schizophrenia, cerebral atherosclerosis -Reorientation as needed -Maintain sleep-wake cycle -As needed analgesia -Resume risperdal, trazadone, aricept, fluvoxamine maleatme -Continue supportive care -PT/OT consulted, appreciate recommendations -f/u with family re home meds -Family is yet to bring home Cardiac: h/o chronic SB, intermittent junctional rhythm, HTN -Cardiology consulted, appreciate recommendations -Blood pressure monitoring per protocol -Antihypertension regimen: amlodipine, lisinopril -Per cardio: Avoid AV pham blocking agents. TSH and MG were within normal limits -No cardiac contraindications to proceeding with vascular intervention as planned. -Echocardiogram EF 65 to 70%. Borderline concentric LVH. -Wanted to follow-up with cardiology outpatient Respiratory: NAD, Right upper lobe nodule -[facility] consulted, appreciate recommendations -Pulmonary hygiene -SpO2 monitoring per protocol -Noted on CTA, single incidental pulmonary nodule(s) in the right upper lobe measuring 5 mm with solid characteristics. -Follow up outpatient for further evaluation GI: NAD -24 hours -40 mL -PPI -CC diet -BR: colace : Acute kidney injury likely secondary to vasomotor nephropathy, Hyperchloremic metabolic acidosis -Monitor intake and output -Renally dose medications -s/p IVF -Avoid nephrotoxic medications -FeNa 6.45% indicating intrinsic -Trend BMP ID: NAD -Antibiotic therapy with clindamycin preop -Monitor WBC and temperature curve Endo: h/o DM -CC diet -Avoid hypoglycemia -SSI -Accu-Cheks q. 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 The aggregate critical care time was [60] minutes. This time is in addition to time spent performing reported procedures but includes the following: [x] Data Review and interpretation [x] Patient assessment and monitoring of vital signs [x] Documentation [x] Medication orders and management Disposition Plan: transfer to floor Total Time Spent with Patient (Minutes): 60 History Interval history: This is a 77-year-old male with vascular dementia with behavior disturbance, CVA, cerebral atherosclerosis, schizophrenia, DM, HTN, PVD who presented to emergency department on 06/08 with complaints of left foot pain over the past 3 weeks and discoloration from his vascular surgeon's office where he was found to have left lower extremity ischemia via private vehicle. Patient was initially on heparin drip, vascular surgery team was consulted patient was admitted to the hospital service in [facility] with a subacute SFA occlusion. Hospital Course to Date: 06/09: Remains on heaprin gtt per protocol. Vascular Surgery recommendations noted, plan for possible revascularization procedure likely on Saturday. Patient also noted with SB, HR in the 30s. Home BB held, cardiology also consulted for further eval and clearance for possible vascular procedure. 06/10: Remains stable on RA. Heparin gtt per protocol. Per Vascular surgery plan for [employer] for placement of EKOS catheter with possible other intervention tomorrow, N.p.o. after midnight. Remains in bradycardic, BP stable, Cardiology recommendations noted. SSI adjusted and Lantus Qhs added for hyperglycemia. 06/11: S/p EKOS to left lower extremity, transferred to ICU postprocedure. Increase in Lantus and restarted lispro 8 units AC and IV hydralazine as needed ordered. 06/12: EKOs removed today. Per Dr. Escamilla, pt will transition to DOAC tomorrow. Can transfer to [facility] if needed 06/13: Transitioned to DOAC today. Increase in Cr noted and BP soft therefore will give 1x LR bolus and obtain urine lytes. 06/14: Increase in lantus, still complaining of "not feeling well" and leg pain. 06/15: Patient is medically stable for discharge however PT/OT consult was pendi chyna. We will dispense recommended subacute rehab. Will be transferred to the floor for pending placement. Increase in lantus Hospitalist Physical - Constitutional Vitals: Temp Pulse Resp BP Pulse Ox 99.5 F 89 24 156/64 98 06/15/22 04:00 06/15/22 06:49 06/15/22 06:00 06/15/22 06:49 06/15/22 05:01 General appearance: Present: no acute distress - EENT Eyes: Present: PERRL, EOM intact ENT: hearing decreased, poor dentition - Neck Neck: Present: normal ROM - Respiratory Respiratory effort: normal Respiratory: bilateral: CTA - Cardiovascular Rhythm: regular Heart Sounds: Present: S1 & S2. Absent: systolic murmur, diastolic murmur - Extremities Extremities: no ischemia, pulses intact, pulses symmetrical, No edema, normal temperature, normal color Peripheral Pulses: within normal limits - Abdominal General gastrointestinal: soft, non-tender, non-distended, normal bowel sounds - Integumentary Integumentary: Present: warm, dry - Psychiatric Psychiatric: cooperative - Neurologic Neurologic: CNII-XII intact, no focal deficits, moves all extremities - Allied Health Allied health notes reviewed: nursing, PT, OT Results - Labs CBC & Chem 7: 06/15/22 04:44 06/15/22 04:44 Labs: Laboratory Last Values WBC 6.0 K/mm3 (4.5-11.0) 06/15/22 04:44 RBC 3.84 M/mm3 (3.65-5.03) 06/15/22 04:44 Hgb 11.7 gm/dl (11.8-15.2) L 06/15/22 04:44 Hct 35.3 % (35.5-45.6) L 06/15/22 04:44 MCV 92 fl (84-94) 06/15/22 04:44 MCH 30 pg (28-32) 06/15/22 04:44 MCHC 33 % (32-34) 06/15/22 04:44 RDW 14.8 % (13.2-15.2) 06/15/22 04:44 Plt Count 138 K/mm3 (140-440) L 06/15/22 04:44 Lymph % (Auto) 14.2 % (13.4-35.0) 06/12/22 09:35 [place]oup % (Auto) 9.1 % (0.0-7.3) H 06/12/22 09:35 Eos % (Auto) 0.1 % (0.0-4.3) 06/12/22 09:35 Baso % (Auto) 0.4 % (0.0-1.8) 06/12/22 09:35 Lymph # (Auto) 0.8 K/mm3 (1.2-5.4) L 06/12/22 09:35 Troup # (Auto) 0.5 K/mm3 (0.0-0.8) 06/12/22 09:35 Eos # (Auto) 0.0 K/mm3 (0.0-0.4) 06/12/22 09:35 Baso # (Auto) 0.0 K/mm3 (0.0-0.1) 06/12/22 09:35 Seg Neutrophils % 76.2 % (40.0-70.0) H 06/12/22 09:35 Seg Neutrophils # 4.2 K/mm3 (1.8-7.7) 06/12/22 09:35 PT 16.2 Sec. (12.2-14.9) H 06/12/22 11:02 INR 1.16 (0.87-1.13) H 06/12/22 11:02 APTT 188.7 Sec. (24.2-36.6) H* 06/12/22 11:02 Fibrinogen 313 mg/dl (211-480) 06/12/22 09:35 Heparin Anti-Xa Level 0.73 U.I./ml (0.3-0.7) H 06/13/22 05:49 Sodium 135 mmol/L (137-145) L 06/15/22 04:44 Potassium 4.3 mmol/L (3.6-5.0) 06/15/22 04:44 Chloride 105.8 mmol/L (98-107) 06/15/22 04:44 Carbon Dioxide 18 mmol/L (22-30) L 06/15/22 04:44 Anion Gap 16 mmol/L 06/15/22 04:44 BUN 17 mg/dL (9-20) 06/15/22 04:44 Creatinine 1.2 mg/dL (0.8-1.3) 06/15/22 04:44 Estimated GFR > 60 ml/min 06/15/22 04:44 BUN/Creatinine Ratio 14 % 06/15/22 04:44 Glucose 200 mg/dL (75-100) H 06/15/22 04:44 POC Glucose 233 mg/dL (70-105) H 06/15/22 08:44 Calcium 8.6 mg/dL (8.4-10.2) 06/15/22 04:44 Magnesium 2.20 mg/dL (1.7-2.3) 06/10/22 13:30 Total Bilirubin 0.40 mg/dL (0.1-1.2) 06/08/22 17:59 AST 17 units/L (5-40) 06/08/22 17:59 ALT 18 units/L (7-56) 06/08/22 17:59 Alkaline Phosphatase 77 units/L (35-129) 06/08/22 17:59 Total Protein 7.8 g/dL (6.3-8.2) 06/08/22 17:59 Albumin 4.5 g/dL (3.9-5) 06/08/22 17:59 Albumin/Globulin Ratio 1.4 % 06/08/22 17:59 TSH 3.030 mlU/mL (0.270-4.200) 06/10/22 13:30 Urine Creatinine 260.3 mg/dL (0.1-20.0) H 06/13/22 08:35 Urine Sodium 66 mmol/L 06/13/22 08:35 Urine Urea Nitrogen 1047 06/13/22 08:35 Blood Type O POSITIVE 06/11/22 16:54 Antibody Screen Negative 06/11/22 16:54 Khalil/IV: Voiding Method Condom Catheter Active Medications - Current Medications Current Medications: Generic Name Dose Route Start Last Admin Trade Name Freq PRN Reason Stop Dose Admin Acetaminophen 650 mg 06/08/22 17:35 06/09/22 20:46 Acetaminophen 325 Mg Tab PO 650 mg Q6H PRN Administration Pain MILD(1-3)/Fever >100.5/PACHECO Hydrocodone Bitart/Acetaminophen 2 each 06/11/22 14:10 06/14/22 07:03 Hydrocodone/Acetaminophen 5-325 Mg Tab PO 2 each Q6H PRN Administration Pain, Moderate (4-6) Albuterol 2.5 mg 06/08/22 17:35 Albuterol 2.5 Mg/3 Ml Nebu IH Q3HRT PRN Shortness Of Breath Amlodipine Besylate 10 mg 06/12/22 10:00 06/14/22 09:45 Amlodipine 10 Mg Tab PO 10 mg QDAY DARRYL Administration Apixaban 5 mg 06/13/22 10:00 06/14/22 23:43 Apixaban 5 Mg Tab PO 5 mg Q12HR DARRYL Administration Protocol Cetirizine HCl 10 mg 06/09/22 10:00 06/14/22 09:45 Cetirizine 10 Mg Tab PO 10 mg DAILY DARRYL Administration Cilostazol 100 mg 06/12/22 11:00 06/14/22 23:47 Cilostazol 100 Mg Tab PO 100 mg BID DARRYL Administration Clopidogrel Bisulfate 75 mg 06/13/22 10:00 06/14/22 09:47 Clopidogrel 75 Mg Tab PO 75 mg QDAY DARRYL Administration Dextrose 50 ml 06/09/22 12:27 Dextrose 50% In Water (25gm) 50 Ml Syringe IV Q30MIN PRN Hypoglycemia Protocol Docusate Sodium 100 mg 06/11/22 22:00 06/14/22 23:44 Docusate Sodium 100 Mg Cap PO 100 mg BID DARRYL Administration Donepezil HCl 10 mg 06/08/22 22:00 06/14/22 23:44 Donepezil 10 Mg Tab PO 10 mg QHS DARRYL Administration Hydralazine HCl 10 mg 06/11/22 10:05 06/14/22 04:11 Hydralazine 20 Mg/1 Ml Inj IV 10 mg Q4HR PRN Administration Hypertension Hydralazine HCl 25 mg 06/12/22 14:00 06/15/22 06:49 Hydralazine 25 Mg Tab PO 25 mg Q8HR DARRYL Administration Hydromorphone HCl 0.5 mg 06/11/22 14:16 Hydromorphone 0.5 Mg/0.5 Ml Inj IV Q2H PRN Pain , Severe (7-10) Insulin Glargine 40 units 06/14/22 22:00 06/15/22 00:53 Insulin Glargine 100 Units/Ml SUB-Q 40 units QHS DARRYL Administration Insulin Glargine 45 units 06/15/22 22:00 Insulin Glargine 100 Units/Ml SUB-Q QHS [facility] Insulin Human Lispro 0 unit 06/09/22 16:30 06/15/22 09:25 Insulin Lispro 100 Unit/Ml SUB-Q 4 unit ACHS DARRYL Administration Protocol Insulin Human Lispro 8 unit 06/11/22 11:30 06/15/22 09:26 Insulin Lispro 100 Unit/Ml SUB-Q 8 unit AC DARRYL Administration Ondansetron HCl 4 mg 06/11/22 14:10 Ondansetron 4 Mg/2 Ml Inj IV Q8H PRN Nausea And Vomiting Oxycodone/Acetaminophen 1 tab 06/08/22 17:35 06/15/22 09:27 Oxycodone /Acetaminophen 5-325mg Tab PO 1 tab Q6H PRN Administration Pain, Moderate (4-6) Pantoprazole Sodium 40 mg 06/12/22 16:30 06/15/22 09:25 Pantoprazole 40 Mg Tab PO 40 mg BIDAC DARRYL Administration Risperidone 4 mg 06/08/22 22:00 06/14/22 23:47 Risperidone 1 Mg Tab PO 4 mg QHS DARRYL Administration Sodium Chloride 10 ml 06/08/22 22:00 06/14/22 23:51 Sodium Chloride 0.9% 10 Ml Flush Syringe IV 10 ml BID DARRYL Administration Sodium Chloride 10 ml 06/08/22 17:35 06/10/22 01:27 Sodium Chloride 0.9% 10 Ml Flush Syringe IV 10 ml PRN PRN Administration LINE FLUSH Trazodone HCl 200 mg 06/08/22 22:00 06/14/22 23:49 Trazodone 100 Mg Tab PO 200 mg QHS DARRYL Administration
[2022-06-15] MEDS: CILOSTAZOL 100 MG TAB PO SCH ×2 (15:16→22:02)
[2022-06-15] MEDS: CETIRIZINE 10 MG TAB PO SCH (15:17)
[2022-06-15] MEDS: APIXABAN 5 MG TAB PO SCH ×2 (15:17→22:02)
[2022-06-15] MEDS: amLODIPine 10 MG TAB PO SCH (15:17)
[2022-06-15] MEDS: DOCUSATE SODIUM 100 MG CAP PO SCH ×2 (15:18→22:02)
[2022-06-15] MEDS: CLOPIDOGREL 75 MG TAB PO SCH (15:18)
[2022-06-15] MEDS: risperiDONE 1 MG TAB PO SCH (22:01)
[2022-06-15] MEDS: traZODone 100 MG TAB PO SCH (22:02)
[2022-06-15] MEDS: DONEPEZIL 10 MG TAB PO SCH (22:02)
[2022-06-15] MEDS: INSULIN GLARGINE 100 UNITS/ML SUB-Q SCH (22:41)
[2022-06-16] MEDS: hydrALAZINE 25 MG TAB PO SCH ×3 (05:06→22:24)
[2022-06-16 05:42] LABS: Hematocrit 32.5 % (35.5-45.6)
[2022-06-16] MEDS: PANTOPRAZOLE 40 MG TAB PO SCH ×2 (09:18→17:33)
[2022-06-16] MEDS: amLODIPine 10 MG TAB PO SCH (09:18)
[2022-06-16] MEDS: CILOSTAZOL 100 MG TAB PO SCH (09:18)
[2022-06-16] MEDS: DOCUSATE SODIUM 100 MG CAP PO SCH ×2 (09:18→22:42)
[2022-06-16] MEDS: CLOPIDOGREL 75 MG TAB PO SCH (09:18)
[2022-06-16] MEDS: CETIRIZINE 10 MG TAB PO SCH (09:18)
[2022-06-16] MEDS: APIXABAN 5 MG TAB PO SCH ×2 (09:19→22:24)
[2022-06-16] MEDS: INSULIN LISPRO 100 UNIT/ML SUB-Q SCH ×7 (09:22→22:25)
--- NOTE | 2022-06-16 09:54 | Progress Note ---
Assessment and Plan Assessment and plan: This is a 77-year-old male with vascular dementia with behavior disturbance, cerebralatherosclerosis, schizophrenia, DM, HTN And PVD admitted with subacute SFA occlusion. Neuro: h/o vascular dementia with behavior disturbance, schizophrenia, cerebral atherosclerosis -Reorientation as needed -Maintain sleep-wake cycle -As needed analgesia -Resume risperdal, trazadone, aricept, fluvoxamine maleatme -Continue supportive care -PT/OT consulted, appreciate recommendations -f/u with family re home meds -Family is yet to bring home Cardiac: h/o chronic SB, intermittent junctional rhythm, HTN -Cardiology consulted, appreciate recommendations -Blood pressure monitoring per protocol -Antihypertension regimen: amlodipine, lisinopril -Per cardio: Avoid AV pham blocking agents. TSH and MG were within normal limits -No cardiac contraindications to proceeding with vascular intervention as planned. -Echocardiogram EF 65 to 70%. Borderline concentric LVH. -Wanted to follow-up with cardiology outpatient Respiratory: NAD, Right upper lobe nodule -[facility] consulted, appreciate recommendations -Pulmonary hygiene -SpO2 monitoring per protocol -Noted on CTA, single incidental pulmonary nodule(s) in the right upper lobe measuring 5 mm with solid characteristics. -Follow up outpatient for further evaluation GI: NAD -24 hours -40 mL -PPI -CC diet -BR: colace : Acute kidney injury likely secondary to vasomotor nephropathy, Hyperchloremic metabolic acidosis -Monitor intake and output -Renally dose medications -s/p IVF -Avoid nephrotoxic medications -FeNa 6.45% indicating intrinsic -Trend BMP ID: NAD -Antibiotic therapy with clindamycin preop -Monitor WBC and temperature curve Endo: h/o DM -CC diet -Avoid hypoglycemia -SSI -Accu-Cheks q. ACHS -Long-acting insulin, titrate as needed -Resume home lispro 8 units AC Heme: Subacute SVF occlusion -Vascular surgery consulted, appreciate recommendations -CTA abd/pelvis/lower extremities showed occluded left femoral, popliteal, tibiofemoral trunk likely from embolic disease, two-vessel runoffs bilaterally -s/p successful placement of the thrombolytic catheter in the left lower extremity, removal of EKOs catheter 06/12 -Heparin gtt-> transition to DOAC -Trend CBC -Transfuse hemoglobin less than 7 #Advanced care planning -Disease education conducted, care plan discussed, diagnoses discussed, prognosis discussed, and patient acknowledges understanding with care plan -Time: +30 min History Interval history: This is a 77-year-old male with vascular dementia with behavior disturbance, CVA, cerebral atherosclerosis, schizophrenia, DM, HTN, PVD who presented to emergency department on 06/08 with complaints of left foot pain over the past 3 weeks and discoloration from his vascular surgeon's office where he was found to have left lower extremity ischemia via private vehicle. Patient was initially on heparin drip, vascular surgery team was consulted patient was admitted to the hospital service in [facility] with a subacute SFA occlusion. Hospital Course to Date: 06/09: Remains on heaprin gtt per protocol. Vascular Surgery recommendations noted, plan for possible revascularization procedure likely on Saturday. Patient also noted with SB, HR in the 30s. Home BB held, cardiology also consulted for further eval and clearance for possible vascular procedure. 06/10: Remains stable on RA. Heparin gtt per protocol. Per Vascular surgery plan for [employer] for placement of EKOS catheter with possible other intervention tomorrow, N.p.o. after midnight. Remains in bradycardic, BP stable, Cardiology recommendations noted. SSI adjusted and Lantus Qhs added for hyperglycemia. 06/11: S/p EKOS to left lower extremity, transferred to ICU postprocedure. Increase in Lantus and restarted lispro 8 units AC and IV hydralazine as needed ordered. 06/12: EKOs removed today. Per Dr. Escamilla, pt will transition to DOAC tomorrow. Can transfer to [facility] if needed 06/13: Transitioned to DOAC today. Increase in Cr noted and BP soft therefore will give 1x LR bolus and obtain urine lytes. 06/14: Increase in lantus, still complaining of "not feeling well" and leg pain. 06/15: Patient is medically stable for discharge however PT/OT consult was pending. We will dispense recommended subacute rehab. Will be transferred to the floor. 06/16: Patient is pending authorization of subacute rehab. Continue medical management. Disposition Plan: Pending subacute rehab authorization Total Time Spent with Patient (Minutes): 30 min History Interval history: No acute events overnight. Hospitalist Physical - Constitutional Vitals: Temp Pulse Resp BP Pulse Ox 98.9 F 90 18 152/64 95 06/16/22 07:37 06/16/22 07:37 06/16/22 07:37 06/16/22 07:37 06/16/22 07:37 General appearance: Present: no acute distress, well-nourished - EENT Eyes: Present: PERRL, EOM intact ENT: clear oral mucosa, hearing decreased - Neck Neck: Present: supple, normal ROM - Respiratory Respiratory effort: normal Respiratory: bilateral: CTA - Cardiovascular Rhythm: regular Heart Sounds: Present: S1 & S2 - Extremities Extremities: no ischemia, pulses intact, pulses symmetrical, No edema, normal temperature, normal color Peripheral Pulses: within normal limits - Abdominal General gastrointestinal: soft, non-tender, non-distended, normal bowel sounds - Integumentary Integumentary: Present: clear, warm, dry - Psychiatric Psychiatric: appropriate mood/affect, cooperative - Neurologic Neurologic: CNII-XII intact - Allied Health Allied health notes reviewed: nursing Results - Labs CBC & Chem 7: 06/16/22 04:55 06/15/22 04:44 Labs: Laboratory Last Values WBC 6.0 K/mm3 (4.5-11.0) 06/15/22 04:44 RBC 3.84 M/mm3 (3.65-5.03) 06/15/22 04:44 Hgb 11.0 gm/dl (11.8-15.2) L 06/16/22 04:55 Hct 32.5 % (35.5-45.6) L 06/16/22 04:55 MCV 92 fl (84-94) 06/15/22 04:44 MCH 30 pg (28-32) 06/15/22 04:44 MCHC 33 % (32-34) 06/15/22 04:44 RDW 14.8 % (13.2-15.2) 06/15/22 04:44 Plt Count 138 K/mm3 (140-440) L 06/15/22 04:44 Lymph % (Auto) 14.2 % (13.4-35.0) 06/12/22 09:35 [place] % (Auto) 9.1 % (0.0-7.3) H 06/12/22 09:35 Eos % (Auto) 0.1 % (0.0-4.3) 06/12/22 09:35 Baso % (Auto) 0.4 % (0.0-1.8) 06/12/22 09:35 Lymph # (Auto) 0.8 K/mm3 (1.2-5.4) L 06/12/22 09:35 [place] # (Auto) 0.5 K/mm3 (0.0-0.8) 06/12/22 09:35 Eos # (Auto) 0.0 K/mm3 (0.0-0.4) 06/12/22 09:35 Baso # (Auto) 0.0 K/mm3 (0.0-0.1) 06/12/22 09:35 Seg Neutrophils % 76.2 % (40.0-70.0) H 06/12/22 09:35 Seg Neutrophils # 4.2 K/mm3 (1.8-7.7) 06/12/22 09:35 PT 16.2 Sec. (12.2-14.9) H 06/12/22 11:02 INR 1.16 (0.87-1.13) H 06/12/22 11:02 APTT 188.7 Sec. (24.2-36.6) H* 06/12/22 11:02 Fibrinogen 313 mg/dl (211-480) 06/12/22 09:35 Heparin Anti-Xa Level 0.73 U.I./ml (0.3-0.7) H 06/13/22 05:49 Sodium 135 mmol/L (137-145) L 06/15/22 04:44 Potassium 4.3 mmol/L (3.6-5.0) 06/15/22 04:44 Chloride 105.8 mmol/L (98-107) 06/15/22 04:44 Carbon Dioxide 18 mmol/L (22-30) L 06/15/22 04:44 Anion Gap 16 mmol/L 06/15/22 04:44 BUN 17 mg/dL (9-20) 06/15/22 04:44 Creatinine 1.2 mg/dL (0.8-1.3) 06/15/22 04:44 Estimated GFR > 60 ml/min 06/15/22 04:44 BUN/Creatinine Ratio 14 % 06/15/22 04:44 Glucose 200 mg/dL (75-100) H 06/15/22 04:44 POC Glucose 212 mg/dL (70-105) H 06/16/22 09:18 Calcium 8.6 mg/dL (8.4-10.2) 06/15/22 04:44 Magnesium 2.20 mg/dL (1.7-2.3) 06/10/22 13:30 Total Bilirubin 0.40 mg/dL (0.1-1.2) 06/08/22 17:59 AST 17 units/L (5-40) 06/08/22 17:59 ALT 18 units/L (7-56) 06/08/22 17:59 Alkaline Phosphatase 77 units/L (35-129) 06/08/22 17:59 Total Protein 7.8 g/dL (6.3-8.2) 06/08/22 17:59 Albumin 4.5 g/dL (3.9-5) 06/08/22 17:59 Albumin/Globulin Ratio 1.4 % 06/08/22 17:59 TSH 3.030 mlU/mL (0.270-4.200) 06/10/22 13:30 Urine Creatinine 260.3 mg/dL (0.1-20.0) H 06/13/22 08:35 Urine Sodium 66 mmol/L 06/13/22 08:35 Urine Urea Nitrogen 1047 06/13/22 08:35 Blood Type O POSITIVE 06/11/22 16:54 Antibody Screen Negative 06/11/22 16:54 Khalil/IV: Voiding Method Condom Catheter Active Medications - Current Medications Current Medications: Generic Name Dose Route Start Last Admin Trade Name Freq PRN Reason Stop Dose Admin Acetaminophen 650 mg 06/08/22 17:35 06/09/22 20:46 Acetaminophen 325 Mg Tab PO 650 mg Q6H PRN Administration Pain MILD(1-3)/Fever >100.5/PACHECO Hydrocodone Bitart/Acetaminophen 2 each 06/11/22 14:10 06/14/22 07:03 Hydrocodone/Acetaminophen 5-325 Mg Tab PO 2 each Q6H PRN Administration Pain, Moderate (4-6) Albuterol 2.5 mg 06/08/22 17:35 Albuterol 2.5 Mg/3 Ml Nebu IH Q3HRT PRN Shortness Of Breath Amlodipine Besylate 10 mg 06/12/22 10:00 06/16/22 09:18 Amlodipine 10 Mg Tab PO 10 mg QDAY DARRYL Administration Apixaban 5 mg 06/13/22 10:00 06/16/22 09:19 Apixaban 5 Mg Tab PO 5 mg Q12HR DARRYL Administration Protocol Cetirizine HCl 10 mg 06/09/22 10:00 06/16/22 09:18 Cetirizine 10 Mg Tab PO 10 mg DAILY DARRYL Administration Cilostazol 100 mg 06/12/22 11:00 06/16/22 09:18 Cilostazol 100 Mg Tab PO 100 mg BID DARRYL Administration Clopidogrel Bisulfate 75 mg 06/13/22 10:00 06/16/22 09:18 Clopidogrel 75 Mg Tab PO 75 mg QDAY DARRYL Administration Dextrose 50 ml 06/09/22 12:27 Dextrose 50% In Water (25gm) 50 Ml Syringe IV Q30MIN PRN Hypoglycemia Protocol Docusate Sodium 100 mg 06/11/22 22:00 06/16/22 09:18 Docusate Sodium 100 Mg Cap PO 100 mg BID DARRYL Administration Donepezil HCl 10 mg 06/08/22 22:00 06/15/22 22:02 Donepezil 10 Mg Tab PO 10 mg QHS DARRYL Administration Hydralazine HCl 10 mg 06/11/22 10:05 06/14/22 04:11 Hydralazine 20 Mg/1 Ml Inj IV 10 mg Q4HR PRN Administration Hypertension Hydralazine HCl 25 mg 06/12/22 14:00 06/16/22 05:06 Hydralazine 25 Mg Tab PO 25 mg Q8HR DARRYL Administration Hydromorphone HCl 0.5 mg 06/11/22 14:16 Hydromorphone 0.5 Mg/0.5 Ml Inj IV Q2H PRN Pain , Severe (7-10) Insulin Glargine 45 units 06/15/22 22:00 06/15/22 22:41 Insulin Glargine 100 Units/Ml SUB-Q 45 units QHS DARRYL Administration Insulin Human Lispro 0 unit 06/09/22 16:30 06/16/22 09:23 Insulin Lispro 100 Unit/Ml SUB-Q Not Given ACHS DARRYL Protocol Insulin Human Lispro 8 unit 06/11/22 11:30 06/16/22 09:22 Insulin Lispro 100 Unit/Ml SUB-Q 8 unit AC DARRYL Administration Ondansetron HCl 4 mg 06/11/22 14:10 Ondansetron 4 Mg/2 Ml Inj IV Q8H PRN Nausea And Vomiting Oxycodone/Acetaminophen 1 tab 06/08/22 17:35 06/15/22 09:27 Oxycodone /Acetaminophen 5-325mg Tab PO 1 tab Q6H PRN Administration Pain, Moderate (4-6) Pantoprazole Sodium 40 mg 06/12/22 16:30 06/16/22 09:18 Pantoprazole 40 Mg Tab PO 40 mg BIDAC DARRYL Administration Risperidone 4 mg 06/08/22 22:00 06/15/22 22:01 Risperidone 1 Mg Tab PO 4 mg QHS DARRYL Administration Sodium Chloride 10 ml 06/08/22 22:00 06/16/22 09:19 Sodium Chloride 0.9% 10 Ml Flush Syringe IV 10 ml BID DARRYL Administration Sodium Chloride 10 ml 06/08/22 17:35 06/10/22 01:27 Sodium Chloride 0.9% 10 Ml Flush Syringe IV 10 ml PRN PRN Administration LINE FLUSH Trazodone HCl 200 mg 06/08/22 22:00 06/15/22 22:02 Trazodone 100 Mg Tab PO 200 mg QHS DARRYL Administration Nutrition/Malnutrition Assess - Dietary Evaluation Nutrition/Malnutrition Findings: Nutrition Notes Start: 06/15/22 15:56 Freq: Status: Active Protocol: Document 06/15/22 15:57 MANDY (Rec: 06/15/22 16:14 MANDY [email or web address]) Nutrition Notes Need for Assessment generated from: LOS Initial or Follow up Assessment Current Diagnosis Acute Kidney Injury,Diabetes, Hypertension Other Pertinent Diagnosis L-SFA Occlussion, PVD, Metabolic Acidosis,... Current Diet Consistent Carbohydrates Diet (since L 06/12). Labs/Tests 06/15: Na 135, CO2 18, Glu 200 . Pertinent Medications 06/15: Humalog 4U, others nutritionally unremarkable. Height 6 ft Weight 72.56 kg [place] Body Weight (kg) 80.90 BMI 21.7 Intake Prior to Admission Good Weight change and time frame Pt denies having loss body weight [employer]. Weight Status Appropriate Subjective/Other Information RD consult for LOS assessment. No reports available on Pt's PO intake of meals at the time , will assess at F/U. Pt is on Room Air, O2 saturation @ 98%, according to Physical Assessment History notes. Pt has missing teeth, according to Physical Assessment History notes. Pt is cleared medically for discharge, just PO/PT are still pending, Pt awaiting for placement, according to Progress notes. Percent of energy/protein needs met: Prescribed Consistent Carbohydrates Diet provides for energy/protein needs (2, 061 Kcal/91 g) during LOS. Burn Absent Trauma Absent GI Symptoms None Food Allergy No Skin Integrity/Comment L-LE surgical wound. Minimum of two criteria No Fluid Accumulation N/A Reduced Date Pitter Strength N/A (non-severe) Protein-Calorie Malnutrition N\\A #1 Nutrition Diagnosis Increased nutrient needs ( specify in comment below) Etiology L-SFA Occlusion. As Evidenced by Signs and Symptoms L-LE surgical wound. Is patient on ventilator? No Is Patient Ambulatory and/or Out of Bed No REE-([facility]-confined to bed) 1786.932 Kcal/Kg value to use for calculation 31 Approximate Energy Requirements Using 2249 kcal/Kg Calculation Used for Recommendations Kcal/kg Additional Notes Protein: 1.25-1.5 g/Kg ABW; 91 -110 g/day. Fluids: 1 ml/Kcal, or as per MD. Nutrition Intervention Change Diet Order: Continue Consistent Carbohydrates Diet. Goal #1 Adjust the dietary intervention to better serve Pt's needs and clinical conditions during LOS. Follow-Up By: 06/22/22 Additional Comments Continue monitoring food tolerance, %PO intake of meals , and BM.
--- NOTE | 2022-06-16 17:33 | Progress Note ---
Assessment and Plan 77-year-old male with acute/subacute limb ischemia status post revascularization with good results. Recommend Plavix, and Eliquis. Eliquis 5 mg p.o. twice daily x12 weeks then 2.5 mg p.o. twice daily. Pantoprazole twice daily for GI prophylaxis. I will discontinue his cilostazol at this time. Follow-up in 2 to 4 weeks. Subjective Date of service: 06/16/22 Principal diagnosis: PVD with subacute arterial occlusion of his left SFA Interval history: Both feet are warm and well-perfused. Poor insight into understanding his acute/subacute limb ischemia situation. Complains of diabetic neuropathy. Is able to sleep without issue whereas previously could not sleep due to severe rest pain. Objective - Constitutional Vitals: Vital Signs - 12hr 06/16/22 06/16/22 06/16/22 07:37 08:00 10:00 Temperature 98.9 F Pulse Rate 90 81 Pulse Rate [ 90 Left Dorsalis Pedis] Respiratory 18 Rate Blood Pressure 152/64 O2 Sat by Pulse 95 95 Oximetry 06/16/22 11:30 Temperature 98.7 F Pulse Rate 80 Pulse Rate [ Left Dorsalis Pedis] Respiratory 18 Rate Blood Pressure 112/38 O2 Sat by Pulse 95 Oximetry General appearance: Present: no acute distress - EENT Eyes: EOM intact ENT: hearing intact - Respiratory Respiratory effort: normal Extremities: no ischemia, normal temperature, normal color Extremity abnormal: pulses diminished (Nonpalpable pedal pulses) - Gastrointestinal General gastrointestinal: Present: soft, non-tender - Psychiatric Psychiatric: no appropriate mood/affect, no intact judgment & insight, cooperative, other (Flat affect) - Labs CBC & Chem 7: 06/16/22 04:55 06/15/22 04:44 Labs: Abnormal lab results 06/15/22 06/15/22 06/15/22 Range/Units 18:54 21:41 22:51 Hgb (11.8-15.2) gm/dl Hct (35.5-45.6) % POC Glucose 186 H 254 H 251 H (70-105) mg/dL 06/16/22 06/16/22 06/16/22 Range/Units 01:26 04:55 09:18 Hgb 11.0 L (11.8-15.2) gm/dl Hct 32.5 L (35.5-45.6) % POC Glucose 162 H 212 H (70-105) mg/dL 06/16/22 06/16/22 Range/Units 11:31 16:06 Hgb (11.8-15.2) gm/dl Hct (35.5-45.6) % POC Glucose 279 H 317 H (70-105) mg/dL Medications & Allergies - Medications Allergies/Adverse Reactions: Allergies Penicillins Allergy (Intermediate, Verified 02/07/22 23:25) Rash Home Medications: Home Medications Medication Instructions Recorded Confirmed Last Taken Type Loratadine (Nf) [Claritin (Nf)] 10 mg PO DAILY 01/09/16 06/09/22 06/08/22 09:00 History amLODIPine 5 mg PO DAILY 01/09/16 06/09/22 06/08/22 09:00 History carvediloL [Coreg] 3.125 mg PO BID 01/09/16 06/09/22 06/08/22 09:00 History donepeziL [Aricept] 10 mg PO QHS 01/09/16 06/09/22 06/07/22 21:00 History lisinopriL [Zestril TAB] 20 mg PO QDAY 01/09/16 06/09/22 06/08/22 09:00 History risperiDONE [RisperDAL] 4 mg PO QHS 01/09/16 06/09/22 06/07/22 21:00 History traZODone [Desyrel] 200 mg PO QHS 01/09/16 06/09/22 06/07/22 21:00 History Insulin Glargine [Lantus VIAL] 15 units SUB-Q QAMDIAB #1 units 01/12/16 06/09/22 06/08/22 09:00 Rx Insulin Glulisine [Apidra] 8 units SUB-Q AC #1 units 01/12/16 06/09/22 06/08/22 09:00 Rx Active Medications: Generic Name Dose Route Start Last Admin Trade Name Freq PRN Reason Stop Dose Admin Acetaminophen 650 mg 06/08/22 17:35 06/09/22 20:46 Acetaminophen 325 Mg Tab PO 650 mg Q6H PRN Administration Pain MILD(1-3)/Fever >100.5/PACHECO Hydrocodone Bitart/Acetaminophen 2 each 06/11/22 14:10 06/14/22 07:03 Hydrocodone/Acetaminophen 5-325 Mg Tab PO 2 each Q6H PRN Administration Pain, Moderate (4-6) Albuterol 2.5 mg 06/08/22 17:35 Albuterol 2.5 Mg/3 Ml Nebu IH Q3HRT PRN Shortness Of Breath Amlodipine Besylate 10 mg 06/12/22 10:00 06/16/22 09:18 Amlodipine 10 Mg Tab PO 10 mg QDAY DARRYL Administration Apixaban 5 mg 06/13/22 10:00 06/16/22 09:19 Apixaban 5 Mg Tab PO 5 mg Q12HR DARRYL Administration Protocol Cetirizine HCl 10 mg 06/09/22 10:00 06/16/22 09:18 Cetirizine 10 Mg Tab PO 10 mg DAILY DARRYL Administration Cilostazol 100 mg 06/12/22 11:00 06/16/22 09:18 Cilostazol 100 Mg Tab PO 100 mg BID DARRYL Administration Clopidogrel Bisulfate 75 mg 06/13/22 10:00 06/16/22 09:18 Clopidogrel 75 Mg Tab PO 75 mg QDAY DARRYL Administration Dextrose 50 ml 06/09/22 12:27 Dextrose 50% In Water (25gm) 50 Ml Syringe IV Q30MIN PRN Hypoglycemia Protocol Docusate Sodium 100 mg 06/11/22 22:00 06/16/22 09:18 Docusate Sodium 100 Mg Cap PO 100 mg BID DARRYL Administration Donepezil HCl 10 mg 06/08/22 22:00 06/15/22 22:02 Donepezil 10 Mg Tab PO 10 mg QHS DARRYL Administration Hydralazine HCl 10 mg 06/11/22 10:05 06/14/22 04:11 Hydralazine 20 Mg/1 Ml Inj IV 10 mg Q4HR PRN Administration Hypertension Hydralazine HCl 25 mg 06/12/22 14:00 06/16/22 13:16 Hydralazine 25 Mg Tab PO 25 mg Q8HR DARRYL Administration Hydromorphone HCl 0.5 mg 06/11/22 14:16 Hydromorphone 0.5 Mg/0.5 Ml Inj IV Q2H PRN Pain , Severe (7-10) Insulin Glargine 45 units 06/15/22 22:00 06/15/22 22:41 Insulin Glargine 100 Units/Ml SUB-Q 45 units QHS DARRYL Administration Insulin Human Lispro 0 unit 06/09/22 16:30 06/16/22 13:16 Insulin Lispro 100 Unit/Ml SUB-Q 6 unit ACHS DARRYL Administration Protocol Insulin Human Lispro 8 unit 06/11/22 11:30 06/16/22 13:15 Insulin Lispro 100 Unit/Ml SUB-Q 8 unit AC DARRYL Administration Ondansetron HCl 4 mg 06/11/22 14:10 Ondansetron 4 Mg/2 Ml Inj IV Q8H PRN Nausea And Vomiting Oxycodone/Acetaminophen 1 tab 06/08/22 17:35 06/15/22 09:27 Oxycodone /Acetaminophen 5-325mg Tab PO 1 tab Q6H PRN Administration Pain, Moderate (4-6) Pantoprazole Sodium 40 mg 06/12/22 16:30 06/16/22 09:18 Pantoprazole 40 Mg Tab PO 40 mg BIDAC DARRYL Administration Risperidone 4 mg 06/08/22 22:00 06/15/22 22:01 Risperidone 1 Mg Tab PO 4 mg QHS DARRYL Administration Sodium Chloride 10 ml 06/08/22 22:00 06/16/22 09:19 Sodium Chloride 0.9% 10 Ml Flush Syringe IV 10 ml BID DARRYL Administration Sodium Chloride 10 ml 06/08/22 17:35 06/10/22 01:27 Sodium Chloride 0.9% 10 Ml Flush Syringe IV 10 ml PRN PRN Administration LINE FLUSH Trazodone HCl 200 mg 06/08/22 22:00 06/15/22 22:02 Trazodone 100 Mg Tab PO 200 mg QHS DARRYL Administration
[2022-06-16] MEDS: DONEPEZIL 10 MG TAB PO SCH (22:24)
[2022-06-16] MEDS: traZODone 100 MG TAB PO SCH (22:24)
[2022-06-16] MEDS: risperiDONE 1 MG TAB PO SCH (22:24)
[2022-06-16] MEDS: INSULIN GLARGINE 100 UNITS/ML SUB-Q SCH (22:25)
[2022-06-17] MEDS: hydrALAZINE 25 MG TAB PO SCH ×3 (06:02→22:06)
[2022-06-17] MEDS: INSULIN LISPRO 100 UNIT/ML SUB-Q SCH ×7 (08:17→21:54)
[2022-06-17] MEDS: PANTOPRAZOLE 40 MG TAB PO SCH ×2 (08:22→17:15)
[2022-06-17] MEDS: APIXABAN 5 MG TAB PO SCH ×2 (09:01→21:50)
[2022-06-17] MEDS: DOCUSATE SODIUM 100 MG CAP PO SCH ×2 (09:01→22:05)
[2022-06-17] MEDS: CLOPIDOGREL 75 MG TAB PO SCH (09:01)
[2022-06-17] MEDS: amLODIPine 10 MG TAB PO SCH (09:01)
--- NOTE | 2022-06-17 10:03 | Progress Note ---
Assessment and Plan Assessment and plan: This is a 77-year-old male with vascular dementia with behavior disturbance, cerebralatherosclerosis, schizophrenia, DM, HTN And PVD admitted with subacute SFA occlusion. Neuro: h/o vascular dementia with behavior disturbance, schizophrenia, cerebral atherosclerosis -Reorientation as needed -Maintain sleep-wake cycle -As needed analgesia -Resume risperdal, trazadone, aricept, fluvoxamine maleatme -Continue supportive care -PT/OT consulted, appreciate recommendations -f/u with family re home meds -Family is yet to bring home Cardiac: h/o chronic SB, intermittent junctional rhythm, HTN -Cardiology consulted, appreciate recommendations -Blood pressure monitoring per protocol -Antihypertension regimen: amlodipine, lisinopril -Per cardio: Avoid AV pham blocking agents. TSH and MG were within normal limits -No cardiac contraindications to proceeding with vascular intervention as planned. -Echocardiogram EF 65 to 70%. Borderline concentric LVH. -Wanted to follow-up with cardiology outpatient Respiratory: NAD, Right upper lobe nodule -[facility] consulted, appreciate recommendations -Pulmonary hygiene -SpO2 monitoring per protocol -Noted on CTA, single incidental pulmonary nodule(s) in the right upper lobe measuring 5 mm with solid characteristics. -Follow up outpatient for further evaluation GI: NAD -24 hours -40 mL -PPI -CC diet -BR: colace : Acute kidney injury likely secondary to vasomotor nephropathy, Hyperchloremic metabolic acidosis -Monitor intake and output -Renally dose medications -s/p IVF -Avoid nephrotoxic medications -FeNa 6.45% indicating intrinsic -Trend BMP ID: NAD -Antibiotic therapy with clindamycin preop -Monitor WBC and temperature curve Endo: h/o DM -CC diet -Avoid hypoglycemia -SSI -Accu-Cheks q. ACHS -Long-acting insulin, titrate as needed -Resume home lispro 8 units AC Heme: Subacute SVF occlusion -Vascular surgery consulted, appreciate recommendations -CTA abd/pelvis/lower extremities showed occluded left femoral, popliteal, tibiofemoral trunk likely from embolic disease, two-vessel runoffs bilaterally -s/p successful placement of the thrombolytic catheter in the left lower extremity, removal of EKOs catheter 06/12 -Heparin gtt-> transition to DOAC -Trend CBC -Transfuse hemoglobin less than 7 #Advanced care planning -Disease education conducted, care plan discussed, diagnoses discussed, prognosis discussed, and patient acknowledges understanding with care plan -Time: +30 min History Interval history: This is a 77-year-old male with vascular dementia with behavior disturbance, CVA, cerebral atherosclerosis, schizophrenia, DM, HTN, PVD who presented to emergency department on 06/08 with complaints of left foot pain over the past 3 weeks and discoloration from his vascular surgeon's office where he was found to have left lower extremity ischemia via private vehicle. Patient was initially on heparin drip, vascular surgery team was consulted patient was admitted to the hospital service in [facility] with a subacute SFA occlusion. Hospital Course to Date: 06/09: Remains on heaprin gtt per protocol. Vascular Surgery recommendations noted, plan for possible revascularization procedure likely on Saturday. Patient also noted with SB, HR in the 30s. Home BB held, cardiology also consulted for further eval and clearance for possible vascular procedure. 06/10: Remains stable on RA. Heparin gtt per protocol. Per Vascular surgery plan for [facility] for placement of EKOS catheter with possible other intervention tomorrow, N.p.o. after midnight. Remains in bradycardic, BP stable, Cardiology recommendations noted. SSI adjusted and Lantus Qhs added for hyperglycemia. 06/11: S/p EKOS to left lower extremity, transferred to ICU postprocedure. Increase in Lantus and restarted lispro 8 units AC and IV hydralazine as needed ordered. 06/12: EKOs removed today. Per Dr. Escamilla, pt will transition to DOAC tomorrow. Can transfer to [facility] if needed 06/13: Transitioned to DOAC today. Increase in Cr noted and BP soft therefore will give 1x LR bolus and obtain urine lytes. 06/14: Increase in lantus, still complaining of "not feeling well" and leg pain. 06/15: Patient is medically stable for discharge however PT/OT consult was pending. We will dispense recommended subacute rehab. Will be transferred to the floor. 06/16: Patient is pending authorization of subacute rehab. Continue medical management. 06/17: Patient currently medically stable. Pending authorization for subacute rehab. Continue medical management. Disposition Plan: Pending placement Total Time Spent with Patient (Minutes): 30 minutes History Interval history: No acute events overnight. Hospitalist Physical - Constitutional Vitals: Temp Pulse Resp BP Pulse Ox 97.8 F 89 18 111/48 95 06/17/22 07:49 06/17/22 07:49 06/17/22 07:49 06/17/22 07:49 06/17/22 07:49 General appearance: Present: no acute distress, well-nourished - EENT Eyes: Present: PERRL, EOM intact ENT: hearing intact, clear oral mucosa - Neck Neck: Present: supple, normal ROM - Respiratory Respiratory effort: normal Respiratory: bilateral: CTA - Cardiovascular Rhythm: regular Heart Sounds: Present: S1 & S2 - Extremities Extremities: no ischemia, pulses intact, pulses symmetrical, No edema, normal temperature, normal color Peripheral Pulses: within normal limits - Abdominal General gastrointestinal: soft, non-tender, non-distended, normal bowel sounds - Integumentary Integumentary: Present: clear, warm, dry - Psychiatric Psychiatric: appropriate mood/affect - Neurologic Neurologic: CNII-XII intact - Allied Health Allied health notes reviewed: nursing Results - Labs CBC & Chem 7: 06/16/22 04:55 06/15/22 04:44 Labs: Laboratory Last Values WBC 6.0 K/mm3 (4.5-11.0) 06/15/22 04:44 RBC 3.84 M/mm3 (3.65-5.03) 06/15/22 04:44 Hgb 11.0 gm/dl (11.8-15.2) L 06/16/22 04:55 Hct 32.5 % (35.5-45.6) L 06/16/22 04:55 MCV 92 fl (84-94) 06/15/22 04:44 MCH 30 pg (28-32) 06/15/22 04:44 MCHC 33 % (32-34) 06/15/22 04:44 RDW 14.8 % (13.2-15.2) 06/15/22 04:44 Plt Count 138 K/mm3 (140-440) L 06/15/22 04:44 Lymph % (Auto) 14.2 % (13.4-35.0) 06/12/22 09:35 [place] % (Auto) 9.1 % (0.0-7.3) H 06/12/22 09:35 Eos % (Auto) 0.1 % (0.0-4.3) 06/12/22 09:35 Baso % (Auto) 0.4 % (0.0-1.8) 06/12/22 09:35 Lymph # (Auto) 0.8 K/mm3 (1.2-5.4) L 06/12/22 09:35 [place] # (Auto) 0.5 K/mm3 (0.0-0.8) 06/12/22 09:35 Eos # (Auto) 0.0 K/mm3 (0.0-0.4) 06/12/22 09:35 Baso # (Auto) 0.0 K/mm3 (0.0-0.1) 06/12/22 09:35 Seg Neutrophils % 76.2 % (40.0-70.0) H 06/12/22 09:35 Seg Neutrophils # 4.2 K/mm3 (1.8-7.7) 06/12/22 09:35 PT 16.2 Sec. (12.2-14.9) H 06/12/22 11:02 INR 1.16 (0.87-1.13) H 06/12/22 11:02 APTT 188.7 Sec. (24.2-36.6) H* 06/12/22 11:02 Fibrinogen 313 mg/dl (211-480) 06/12/22 09:35 Heparin Anti-Xa Level 0.73 U.I./ml (0.3-0.7) H 06/13/22 05:49 Sodium 135 mmol/L (137-145) L 06/15/22 04:44 Potassium 4.3 mmol/L (3.6-5.0) 06/15/22 04:44 Chloride 105.8 mmol/L (98-107) 06/15/22 04:44 Carbon Dioxide 18 mmol/L (22-30) L 06/15/22 04:44 Anion Gap 16 mmol/L 06/15/22 04:44 BUN 17 mg/dL (9-20) 06/15/22 04:44 Creatinine 1.2 mg/dL (0.8-1.3) 06/15/22 04:44 Estimated GFR > 60 ml/min 06/15/22 04:44 BUN/Creatinine Ratio 14 % 06/15/22 04:44 Glucose 200 mg/dL (75-100) H 06/15/22 04:44 POC Glucose 155 mg/dL (70-105) H 06/17/22 08:46 Calcium 8.6 mg/dL (8.4-10.2) 06/15/22 04:44 Magnesium 2.20 mg/dL (1.7-2.3) 06/10/22 13:30 Total Bilirubin 0.40 mg/dL (0.1-1.2) 06/08/22 17:59 AST 17 units/L (5-40) 06/08/22 17:59 ALT 18 units/L (7-56) 06/08/22 17:59 Alkaline Phosphatase 77 units/L (35-129) 06/08/22 17:59 Total Protein 7.8 g/dL (6.3-8.2) 06/08/22 17:59 Albumin 4.5 g/dL (3.9-5) 06/08/22 17:59 Albumin/Globulin Ratio 1.4 % 06/08/22 17:59 TSH 3.030 mlU/mL (0.270-4.200) 06/10/22 13:30 Urine Creatinine 260.3 mg/dL (0.1-20.0) H 06/13/22 08:35 Urine Sodium 66 mmol/L 06/13/22 08:35 Urine Urea Nitrogen 1047 06/13/22 08:35 Blood Type O POSITIVE 06/11/22 16:54 Antibody Screen Negative 06/11/22 16:54 Khalil/IV: Voiding Method Condom Catheter Active Medications - Current Medications Current Medications: Generic Name Dose Route Start Last Admin Trade Name Freq PRN Reason Stop Dose Admin Acetaminophen 650 mg 06/08/22 17:35 06/09/22 20:46 Acetaminophen 325 Mg Tab PO 650 mg Q6H PRN Administration Pain MILD(1-3)/Fever >100.5/PACHECO Hydrocodone Bitart/Acetaminophen 2 each 06/11/22 14:10 06/14/22 07:03 Hydrocodone/Acetaminophen 5-325 Mg Tab PO 2 each Q6H PRN Administration Pain, Moderate (4-6) Albuterol 2.5 mg 06/08/22 17:35 Albuterol 2.5 Mg/3 Ml Nebu IH Q3HRT PRN Shortness Of Breath Amlodipine Besylate 10 mg 06/12/22 10:00 06/17/22 09:01 Amlodipine 10 Mg Tab PO 10 mg QDAY DARRYL Administration Apixaban 5 mg 06/13/22 10:00 06/17/22 09:01 Apixaban 5 Mg Tab PO 5 mg Q12HR DARRYL Administration Protocol Cetirizine HCl 10 mg 06/09/22 10:00 06/16/22 09:18 Cetirizine 10 Mg Tab PO 10 mg DAILY DARRYL Administration Clopidogrel Bisulfate 75 mg 06/13/22 10:00 06/17/22 09:01 Clopidogrel 75 Mg Tab PO 75 mg QDAY DARRYL Administration Dextrose 50 ml 06/09/22 12:27 Dextrose 50% In Water (25gm) 50 Ml Syringe IV Q30MIN PRN Hypoglycemia Protocol Docusate Sodium 100 mg 06/11/22 22:00 06/17/22 09:01 Docusate Sodium 100 Mg Cap PO 100 mg BID DARRYL Administration Donepezil HCl 10 mg 06/08/22 22:00 06/16/22 22:24 Donepezil 10 Mg Tab PO 10 mg QHS DARRYL Administration Hydralazine HCl 10 mg 06/11/22 10:05 06/14/22 04:11 Hydralazine 20 Mg/1 Ml Inj IV 10 mg Q4HR PRN Administration Hypertension Hydralazine HCl 25 mg 06/12/22 14:00 06/17/22 06:02 Hydralazine 25 Mg Tab PO 25 mg Q8HR DARRYL Administration Hydromorphone HCl 0.5 mg 06/11/22 14:16 Hydromorphone 0.5 Mg/0.5 Ml Inj IV Q2H PRN Pain , Severe (7-10) Insulin Glargine 45 units 06/15/22 22:00 06/16/22 22:25 Insulin Glargine 100 Units/Ml SUB-Q 45 units QHS DARRYL Administration Insulin Human Lispro 0 unit 06/09/22 16:30 06/17/22 08:17 Insulin Lispro 100 Unit/Ml SUB-Q Not Given ACHS [facility] Protocol Insulin Human Lispro 8 unit 06/11/22 11:30 06/17/22 09:02 Insulin Lispro 100 Unit/Ml SUB-Q Not Given AC [facility] Ondansetron HCl 4 mg 06/11/22 14:10 Ondansetron 4 Mg/2 Ml Inj IV Q8H PRN Nausea And Vomiting Oxycodone/Acetaminophen 1 tab 06/08/22 17:35 06/15/22 09:27 Oxycodone /Acetaminophen 5-325mg Tab PO 1 tab Q6H PRN Administration Pain, Moderate (4-6) Pantoprazole Sodium 40 mg 06/12/22 16:30 06/17/22 08:22 Pantoprazole 40 Mg Tab PO 40 mg BIDAC DARRYL Administration Risperidone 4 mg 06/08/22 22:00 06/16/22 22:24 Risperidone 1 Mg Tab PO 4 mg QHS DARRYL Administration Sodium Chloride 10 ml 06/08/22 22:00 06/17/22 09:02 Sodium Chloride 0.9% 10 Ml Flush Syringe IV 10 ml BID DARRYL Administration Sodium Chloride 10 ml 06/08/22 17:35 06/10/22 01:27 Sodium Chloride 0.9% 10 Ml Flush Syringe IV 10 ml PRN PRN Administration LINE FLUSH Trazodone HCl 200 mg 06/08/22 22:00 06/16/22 22:24 Trazodone 100 Mg Tab PO 200 mg QHS DARRYL Administration Nutrition/Malnutrition Assess - Dietary Evaluation Nutrition/Malnutrition Findings: Nutrition Notes Start: 06/15/22 15:56 Freq: Status: Active Protocol: Document 06/15/22 15:57 MANDY (Rec: 06/15/22 16:14 MANDY [id number]) Nutrition Notes Need for Assessment generated from: LOS Initial or Follow up Assessment Current Diagnosis Acute Kidney Injury,Diabetes, Hypertension Other Pertinent Diagnosis L-SFA Occlussion, PVD, Metabolic Acidosis,... Current Diet Consistent Carbohydrates Diet (since L 06/12). Labs/Tests 06/15: Na 135, CO2 18, Glu 200 . Pertinent Medications 06/15: Humalog 4U, others nutritionally unremarkable. Height 6 ft Weight 72.56 kg [place] Body Weight (kg) 80.90 BMI 21.7 Intake Prior to Admission Good Weight change and time frame Pt denies having loss body weight [employer]. Weight Status Appropriate Subjective/Other Information RD consult for LOS assessment. No reports available on Pt's PO intake of meals at the time , will assess at F/U. Pt is on Room Air, O2 saturation @ 98%, according to Physical Assessment History notes. Pt has missing teeth, according to Physical Assessment History notes. Pt is cleared medically for discharge, just PO/PT are still pending, Pt awaiting for placement, according to Progress notes. Percent of energy/protein needs met: Prescribed Consistent Carbohydrates Diet provides for energy/protein needs (2, 061 Kcal/91 g) during LOS. Burn Absent Trauma Absent GI Symptoms None Food Allergy No Skin Integrity/Comment L-LE surgical wound. 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 As Evidenced by Signs and Symptoms L-LE surgical wound. Is patient on ventilator? No Is Patient Ambulatory and/or Out of Bed No REE-([facility]-confined to bed) 1786.932 Kcal/Kg value to use for calculation 31 Approximate Energy Requirements Using 2249 kcal/Kg Calculation Used for Recommendations Kcal/kg Additional Notes Protein: 1.25-1.5 g/Kg ABW; 91 -110 g/day. Fluids: 1 ml/Kcal, or as per MD. Nutrition Intervention Change Diet Order: Continue Consistent Carbohydrates Diet. Goal #1 Adjust the dietary intervention to better serve Pt's needs and clinical conditions during LOS. Follow-Up By: 06/22/22 Additional Comments Continue monitoring food tolerance, %PO intake of meals , and BM.
[2022-06-17] MEDS: CETIRIZINE 10 MG TAB PO SCH (12:06)
[2022-06-17] MEDS ORDERED: HYDROmorphone 0.5 MG/0.5 ML INJ IV PRN (13:30)
[2022-06-17] MEDS: GABAPENTIN 300 MG CAP PO SCH (17:17)
[2022-06-17] MEDS: ACETAMINOPHEN 325 MG TAB PO PRN (19:26)
[2022-06-17] MEDS: risperiDONE 1 MG TAB PO SCH (21:51)
[2022-06-17] MEDS: traZODone 100 MG TAB PO SCH (21:52)
[2022-06-17] MEDS: INSULIN GLARGINE 100 UNITS/ML SUB-Q SCH (21:55)
[2022-06-17] MEDS: DONEPEZIL 10 MG TAB PO SCH (22:06)
[2022-06-18 06:33] LABS: Hematocrit 32.7 % (35.5-45.6); Hemoglobin 11.1 gm/dl (11.8-15.2)
[2022-06-18] MEDS: HYDROcodone/ACETAMINOPHEN 5-325 MG TAB PO PRN (10:32)
[2022-06-18] MEDS: CETIRIZINE 10 MG TAB PO SCH (10:34)
[2022-06-18] MEDS: amLODIPine 10 MG TAB PO SCH (10:35)
[2022-06-18] MEDS: CLOPIDOGREL 75 MG TAB PO SCH (10:35)
[2022-06-18] MEDS: APIXABAN 5 MG TAB PO SCH ×2 (10:35→21:57)
[2022-06-18] MEDS: DOCUSATE SODIUM 100 MG CAP PO SCH ×2 (10:36→21:58)
[2022-06-18] MEDS: PANTOPRAZOLE 40 MG TAB PO SCH ×2 (10:41→17:53)
[2022-06-18] MEDS: INSULIN LISPRO 100 UNIT/ML SUB-Q SCH ×7 (10:44→21:57)
--- NOTE | 2022-06-18 13:49 | Discharge Summary ---
Providers - Providers Date of Admission: 06/08/22 17:35 Date of discharge: 06/18/22 Attending physician: BRIEN TERRY MD 06/08/22 17:35 Consult to Physician [CONS] Routine Comment: Consulting Provider: FERNANDO SILVESTRE Physician Instructions: Reason For Exam: LLE Ischemia 06/09/22 10:05 Consult to Physician [CONS] Routine Comment: Consulting Provider: FRANCISCO JAVIER RANDALL Physician Instructions: Reason For Exam: Bradycardia, PVD with sub-acute occlusion 06/14/22 08:52 Occupational Therapy Evaluate and Treat [CONS] Routine Comment: Reason For Exam: Debility Physical Therapy Evaluation and Treat [CONS] Routine Comment: Reason For Exam: Debility Primary care physician: SUKHDEEP SALAS Hospitalization Reason for admission: Subacute SVF occlusion Condition: Stable Pertinent studies: Reviewed Procedures: EKOS Hospital course: The patient is a 76 YO Male with Vascular Dementia with Behavioral Disturbance, Cerebral Atherosclerosis, Schizophrenia, DM, HTN, PVD presents to ED for evaluation. Patient reports "my foot hurts". Patient states that he has experienced pain in his left foot as well as discoloration over the past 3 weeks with persistent and worsening symptoms over the same timeframe. Patient was seen and evaluated at his vascular surgeon's office and was found to have left lower extremity ischemia. Patient instructed to seek further care at [facility]. Patient transported via private vehicle to [facility] for further care and evaluation of the aforementioned symptoms. The patient was seen and evaluated in the emergency department. All lab and image studies reviewed. Patient found to have left lower extremity ischemia. Patient initiated on heparin drip. Vascular surgery team consulted. Patient admitted to [facility] due to increased risk of worsening symptoms and for medical stabilization. In the ED, the patient was found to be hemodynamically stable with vitals remarkable for a pulse of 48. Labs were also remarkable for potassium 5.1 and creatinine 1.6. Patient was evaluated with arterial Dopplers of his bilateral lower extremities that revealed SFA obstruction. Vascular surgery was consulted for further management and the patient underwent angiography of his left lower extremity with EKOS. The patient was transferred to the ICU for close monitoring shortly after EKOS, and he has since been transitioned to the floor. Patient was initiated on Eliquis 5 mg every 12 hours for anticoagulation. Patient was evaluated by physical therapy who recommended subacute rehab. Patient and his family refused subacute rehab, the patient will be discharging with home health and physical therapy. The patient is medically clear for discharge. Disposition: 01 HOME / SELF CARE / HOMELESS Final Discharge Diagnosis (Prints w/discharge instructions): Subacute SVF occlusion status post EKOS, insulin-dependent type 2 diabetes mellitus, PATRICIA secondary to vasomotor nephropathy, metabolic acidosis, intermittent junctional rhythm, hypertension, history of vascular dementia with behavioral disturbances, schizophrenia, cerebral atherosclerosis Time spent for discharge: 45 min Core Measure Documentation - Palliative Care Palliative Care/ Comfort Measures: Not Applicable - Core Measures Any of the following diagnoses?: DVT/PE - VTE Discharge Requirements Deep Vein Thrombosis/Pulmonary Embolism Present on Admission: Yes Has pt received <5 days of overlap therapy or INR<2.0: No Anticoagulant overlap therapy prescribed at discharge: Yes Contraindication No Overlap Therapy order at DC: Not Indicated Exam - Constitutional Vitals: Temp Pulse Resp BP Pulse Ox 98.6 F 72 16 136/65 99 06/18/22 04:00 06/18/22 04:00 06/18/22 11:32 06/18/22 10:35 06/18/22 04:00 General appearance: Present: no acute distress, well-nourished - EENT Eyes: Present: PERRL, EOM intact ENT: hearing intact, clear oral mucosa, dentition normal - Neck Neck: Present: supple, normal ROM - Respiratory Respiratory effort: normal Respiratory: bilateral: CTA - Cardiovascular Rhythm: regular Heart Sounds: Present: S1 & S2 - Extremities Extremities: no ischemia, pulses intact, pulses symmetrical, No edema, normal temperature, normal color Peripheral Pulses: within normal limits - Abdominal General gastrointestinal: Present: soft, non-tender, non-distended, normal bowel sounds Male genitourinary: Present: deferred - Rectal Rectal Exam: deferred - Integumentary Integumentary: Present: clear, warm, dry - Musculoskeletal Musculoskeletal: generalized weakness - Psychiatric Psychiatric: appropriate mood/affect, cooperative - Neurologic Neurologic: CNII-XII intact - Allied Health Allied health notes reviewed: nursing Plan Activity: advance as tolerated Diet: low salt, diabetic Additional Instructions: The patient is a 76 YO Male with Vascular Dementia with Behavioral Disturbance, Cerebral Atherosclerosis, Schizophrenia, DM, HTN, PVD presents to ED for evaluation. Patient reports "my foot hurts". Patient states that he has experienced pain in his left foot as well as discoloration over the past 3 weeks with persistent and worsening symptoms over the same timeframe. Patient was seen and evaluated at his vascular surgeon's office and was found to have left lower extremity ischemia. Patient instructed to seek further care at [facility]. Patient transported via private vehicle to [facility] for further care and evaluation of the aforementioned symptoms. The patient was seen and evaluated in the emergency department. All lab and image studies reviewed. Patient found to have left lower extremity ischemia. Patient initiated on heparin drip. Vascular surgery team consulted. Patient admitted to [facility] due to increased risk of worsening symptoms and for medical stabilization. In the ED, the patient was found to be hemodynamically stable with vitals remarkable for a pulse of 48. Labs were also remarkable for potassium 5.1 and creatinine 1.6. Patient was evaluated with arterial Dopplers of his bilateral lower extremities that revealed SFA obstruction. Vascular surgery was consulted for further management and the patient underwent angiography of his left lower extremity with EKOS. The patient was transferred to the ICU for close monitoring shortly after EKOS, and he has since been transitioned to the floor. Patient was initiated on Eliquis 5 mg every 12 hours for anticoagulation. Patient was evaluated by physical therapy who recommended subacute rehab. Patient and his family refused subacute rehab, the patient will be discharging with home health and physical therapy. The patient is medically clear for discharge. Care Plan Goals: Patient is medically clear for discharge. Assessment: The patient is a 76 YO Male with Vascular Dementia with Behavioral Disturbance, Cerebral Atherosclerosis, Schizophrenia, DM, HTN, PVD presents to ED for evaluation. Patient reports "my foot hurts". Patient states that he has experienced pain in his left foot as well as discoloration over the past 3 weeks with persistent and worsening symptoms over the same timeframe. Patient was seen and evaluated at his vascular surgeon's office and was found to have left lower extremity ischemia. Patient instructed to seek further care at [facility]. Patient transported via private vehicle to [facility] for further care and evaluation of the aforementioned symptoms. The patient was seen and evaluated in the emergency department. All lab and image studies reviewed. Patient found to have left lower extremity ischemia. Patient initiated on heparin drip. Vascular surgery team consulted. Patient admitted to [facility] due to increased risk of worsening symptoms and for medical stabilization. In the ED, the patient was found to be hemodynamically stable with vitals remarkable for a pulse of 48. Labs were also remarkable for potassium 5.1 and creatinine 1.6. Patient was evaluated with arterial Dopplers of his bilateral lower extremities that revealed SFA obstruction. Vascular surgery was consulted for further management and the patient underwent angiography of his left lower extremity with EKOS. The patient was transferred to the ICU for close monitoring shortly after EKOS, and he has since been transitioned to the floor. Patient was initiated on Eliquis 5 mg every 12 hours for anticoagulation. Patient was evaluated by physical therapy who recommended subacute rehab. Patient and his family refused subacute rehab, the patient will be discharging with home health and physical therapy. The patient is medically clear for discharge. Follow up with: SUKHDEEP SALAS MD [Primary Care Provider] - 7 Days Prescriptions: donepeziL [Aricept] 10 mg PO QHS #30 tab risperiDONE [RisperDAL] 4 mg PO QHS #30 tablet amLODIPine 10 mg PO QDAY #30 tablet Apixaban [Eliquis] 5 mg PO Q12HR #60 tablet Clopidogrel [Plavix] 75 mg PO QDAY #30 tablet Pantoprazole [Protonix TAB] 40 mg PO BIDAC #60 tablet
[2022-06-18] MEDS: hydrALAZINE 25 MG TAB PO SCH ×2 (15:00→21:57)
[2022-06-18] MEDS: GABAPENTIN 300 MG CAP PO SCH (19:33)
[2022-06-18] MEDS: DONEPEZIL 10 MG TAB PO SCH (21:56)
[2022-06-18] MEDS: risperiDONE 1 MG TAB PO SCH (21:56)
[2022-06-18] MEDS: traZODone 100 MG TAB PO SCH (21:57)
[2022-06-18] MEDS: INSULIN GLARGINE 100 UNITS/ML SUB-Q SCH (22:54)
[2022-06-19] MEDS: hydrALAZINE 25 MG TAB PO SCH ×4 (06:38→22:10)
[2022-06-19] MEDS: amLODIPine 10 MG TAB PO SCH (09:16)
[2022-06-19] MEDS: CLOPIDOGREL 75 MG TAB PO SCH (09:16)
[2022-06-19] MEDS: CETIRIZINE 10 MG TAB PO SCH (09:17)
[2022-06-19] MEDS: INSULIN LISPRO 100 UNIT/ML SUB-Q SCH ×7 (09:17→22:11)
[2022-06-19] MEDS: APIXABAN 5 MG TAB PO SCH ×2 (09:17→22:10)
[2022-06-19] MEDS: DOCUSATE SODIUM 100 MG CAP PO SCH ×2 (09:21→22:11)
[2022-06-19] MEDS: PANTOPRAZOLE 40 MG TAB PO SCH ×2 (09:33→17:52)
--- NOTE | 2022-06-19 11:20 | Progress Note ---
Assessment and Plan Assessment and plan: This is a 77-year-old male with vascular dementia with behavior disturbance, cerebralatherosclerosis, schizophrenia, DM, HTN And PVD admitted with subacute SFA occlusion. #h/o vascular dementia with behavior disturbance #schizophrenia #cerebral atherosclerosis -Reorientation as needed -Maintain sleep-wake cycle -As needed analgesia -continue risperdal, trazadone, aricept, fluvoxamine maleatme #h/o chronic sinus bradycardia #intermittent junctional rhythm #Hypertension -Cardiology consulted, appreciate recommendations -Blood pressure monitoring per protocol -Antihypertension regimen: amlodipine, lisinopril -Per cardio: Avoid AV pham blocking agents. TSH and MG were within normal limits -No cardiac contraindications to proceeding with vascular intervention as planned. -Echocardiogram EF 65 to 70%. Borderline concentric LVH. -will need follow-up with Cardiology outpatient #Right upper lobe nodule -SpO2 monitoring per protocol -Noted on CTA, single incidental pulmonary nodule(s) in the right upper lobe measuring 5 mm with solid characteristics -Follow up outpatient for further evaluation #Acute kidney injury likely secondary to vasomotor nephropathy #Hyperchloremic metabolic acidosis-resolved -Monitor intake and output -Renally dose medications -s/p IVF -Avoid nephrotoxic medications -FeNa 6.45% indicating intrinsic -Trend BMP #h/o type 2 diabetes mellitus -CC diet -Avoid hypoglycemia -SSI -Accu-Cheks q. ACHS -Long-acting insulin, titrate as needed -Resume home lispro 8 units AC #Subacute SVF occlusion -Vascular surgery consulted, appreciate recommendations -CTA abd/pelvis/lower extremities showed occluded left femoral, popliteal, tibiofemoral trunk likely from embolic disease, two-vessel runoffs bilaterally -s/p successful placement of the thrombolytic catheter in the left lower extremity, removal of EKOs catheter 06/12 -s/p Heparin gtt-> transitioned to DOAC -Trend CBC -Transfuse hemoglobin less than 7 #Advanced care planning -Disease education conducted, care plan discussed, diagnoses discussed, prognosis discussed, and patient acknowledges understanding with care plan -Time: +30 min #Discharge planning -Patient awaiting authorization for [facility] -Anticipate discharge in the next 48-72 hours Disposition Plan: SNF History Interval history: No acute events overnight. Patient reports feeling fine and having chronic leg pain. He is ready to be discharged. He has no acute complaints at this time. Hospitalist Physical - Physical exam Narrative exam: GENERAL: Well-developed well-nourished. In no acute distress. HEENT: Normocephalic. Atraumatic. NECK: Supple. CHEST/LUNGS: CTAB on room air HEART/CARDIOVASCULAR: RRR. No murmur, rubs or gallops appreciated. ABDOMEN: +BS. NT/ND. SKIN: No rashes noted. NEURO: No focal motor deficit. Follows all commands. MUSCULOSKELETAL: No joint effusion EXTREMITIES: No cyanosis, clubbing or edema. PSYCH: Cooperative. - Constitutional Vitals: Temp Pulse Resp BP Pulse Ox 97.8 F 63 18 129/56 99 06/19/22 08:56 06/19/22 08:56 06/19/22 08:56 06/19/22 09:16 06/19/22 08:56 General appearance: Present: no acute distress, well-nourished Results - Labs CBC & Chem 7: 06/18/22 05:56 06/15/22 04:44 Labs: Laboratory Last Values WBC 6.0 K/mm3 (4.5-11.0) 06/15/22 04:44 RBC 3.84 M/mm3 (3.65-5.03) 06/15/22 04:44 Hgb 11.1 gm/dl (11.8-15.2) L 06/18/22 05:56 Hct 32.7 % (35.5-45.6) L 06/18/22 05:56 MCV 92 fl (84-94) 06/15/22 04:44 MCH 30 pg (28-32) 06/15/22 04:44 MCHC 33 % (32-34) 06/15/22 04:44 RDW 14.8 % (13.2-15.2) 06/15/22 04:44 Plt Count 138 K/mm3 (140-440) L 06/15/22 04:44 Lymph % (Auto) 14.2 % (13.4-35.0) 06/12/22 09:35 Cavalier % (Auto) 9.1 % (0.0-7.3) H 06/12/22 09:35 Eos % (Auto) 0.1 % (0.0-4.3) 06/12/22 09:35 Baso % (Auto) 0.4 % (0.0-1.8) 06/12/22 09:35 Lymph # (Auto) 0.8 K/mm3 (1.2-5.4) L 06/12/22 09:35 Cavalier # (Auto) 0.5 K/mm3 (0.0-0.8) 06/12/22 09:35 Eos # (Auto) 0.0 K/mm3 (0.0-0.4) 06/12/22 09:35 Baso # (Auto) 0.0 K/mm3 (0.0-0.1) 06/12/22 09:35 Seg Neutrophils % 76.2 % (40.0-70.0) H 06/12/22 09:35 Seg Neutrophils # 4.2 K/mm3 (1.8-7.7) 06/12/22 09:35 PT 16.2 Sec. (12.2-14.9) H 06/12/22 11:02 INR 1.16 (0.87-1.13) H 06/12/22 11:02 APTT 188.7 Sec. (24.2-36.6) H* 06/12/22 11:02 Fibrinogen 313 mg/dl (211-480) 06/12/22 09:35 Heparin Anti-Xa Level 0.73 U.I./ml (0.3-0.7) H 06/13/22 05:49 Sodium 135 mmol/L (137-145) L 06/15/22 04:44 Potassium 4.3 mmol/L (3.6-5.0) 06/15/22 04:44 Chloride 105.8 mmol/L (98-107) 06/15/22 04:44 Carbon Dioxide 18 mmol/L (22-30) L 06/15/22 04:44 Anion Gap 16 mmol/L 06/15/22 04:44 BUN 17 mg/dL (9-20) 06/15/22 04:44 Creatinine 1.2 mg/dL (0.8-1.3) 06/15/22 04:44 Estimated GFR > 60 ml/min 06/15/22 04:44 BUN/Creatinine Ratio 14 % 06/15/22 04:44 Glucose 200 mg/dL (75-100) H 06/15/22 04:44 POC Glucose 208 mg/dL (70-105) H 06/19/22 07:55 Calcium 8.6 mg/dL (8.4-10.2) 06/15/22 04:44 Magnesium 2.20 mg/dL (1.7-2.3) 06/10/22 13:30 Total Bilirubin 0.40 mg/dL (0.1-1.2) 06/08/22 17:59 AST 17 units/L (5-40) 06/08/22 17:59 ALT 18 units/L (7-56) 06/08/22 17:59 Alkaline Phosphatase 77 units/L (35-129) 06/08/22 17:59 Total Protein 7.8 g/dL (6.3-8.2) 06/08/22 17:59 Albumin 4.5 g/dL (3.9-5) 06/08/22 17:59 Albumin/Globulin Ratio 1.4 % 06/08/22 17:59 TSH 3.030 mlU/mL (0.270-4.200) 06/10/22 13:30 Urine Creatinine 260.3 mg/dL (0.1-20.0) H 06/13/22 08:35 Urine Sodium 66 mmol/L 06/13/22 08:35 Urine Urea Nitrogen 1047 06/13/22 08:35 Blood Type O POSITIVE 06/11/22 16:54 Antibody Screen Negative 06/11/22 16:54 Khalil/IV: Voiding Method Condom Catheter Active Medications - Current Medications Current Medications: Generic Name Dose Route Start Last Admin Trade Name Freq PRN Reason Stop Dose Admin Acetaminophen 650 mg 06/08/22 17:35 06/17/22 19:26 Acetaminophen 325 Mg Tab PO 650 mg Q6H PRN Administration Pain MILD(1-3)/Fever >100.5/PACHECO Hydrocodone Bitart/Acetaminophen 1 each 06/17/22 13:30 06/18/22 10:32 Hydrocodone/Acetaminophen 5-325 Mg Tab PO 1 each Q6H PRN Administration Pain, Moderate (4-6) Albuterol 2.5 mg 06/08/22 17:35 Albuterol 2.5 Mg/3 Ml Nebu IH Q3HRT PRN Shortness Of Breath Amlodipine Besylate 10 mg 06/12/22 10:00 06/19/22 09:16 Amlodipine 10 Mg Tab PO 10 mg QDAY DARRYL Administration Apixaban 5 mg 06/13/22 10:00 06/19/22 09:17 Apixaban 5 Mg Tab PO 5 mg Q12HR DARRYL Administration Protocol Cetirizine HCl 10 mg 06/09/22 10:00 06/19/22 09:17 Cetirizine 10 Mg Tab PO 10 mg DAILY DARRYL Administration Clopidogrel Bisulfate 75 mg 06/13/22 10:00 06/19/22 09:16 Clopidogrel 75 Mg Tab PO 75 mg QDAY DARRYL Administration Dextrose 50 ml 06/09/22 12:27 Dextrose 50% In Water (25gm) 50 Ml Syringe IV Q30MIN PRN Hypoglycemia Protocol Docusate Sodium 100 mg 06/11/22 22:00 06/19/22 09:21 Docusate Sodium 100 Mg Cap PO 100 mg BID DARRYL Administration Donepezil HCl 10 mg 06/08/22 22:00 06/18/22 21:56 Donepezil 10 Mg Tab PO 10 mg QHS DARRYL Administration Gabapentin 300 mg 06/17/22 18:00 06/18/22 19:33 Gabapentin 300 Mg Cap PO 300 mg QPM DARRYL Administration Hydralazine HCl 10 mg 06/11/22 10:05 06/14/22 04:11 Hydralazine 20 Mg/1 Ml Inj IV 10 mg Q4HR PRN Administration Hypertension Hydralazine HCl 25 mg 06/12/22 14:00 06/19/22 09:16 Hydralazine 25 Mg Tab PO 25 mg Q8HR DARRYL Administration Hydromorphone HCl 0.5 mg 06/17/22 13:30 06/18/22 19:33 Hydromorphone 0.5 Mg/0.5 Ml Inj IV 0.5 mg Q3H PRN Administration Pain , Severe (7-10) Insulin Glargine 45 units 06/15/22 22:00 06/18/22 22:54 Insulin Glargine 100 Units/Ml SUB-Q 45 units QHS DARRYL Administration Insulin Human Lispro 0 unit 06/09/22 16:30 06/19/22 09:18 Insulin Lispro 100 Unit/Ml SUB-Q 4 unit ACHS DARRYL Administration Protocol Insulin Human Lispro 8 unit 06/11/22 11:30 06/19/22 09:17 Insulin Lispro 100 Unit/Ml SUB-Q 8 unit AC DARRYL Administration Ondansetron HCl 4 mg 06/11/22 14:10 Ondansetron 4 Mg/2 Ml Inj IV Q8H PRN Nausea And Vomiting Oxycodone/Acetaminophen 1 tab 06/08/22 17:35 06/15/22 09:27 Oxycodone /Acetaminophen 5-325mg Tab PO 1 tab Q6H PRN Administration Pain, Moderate (4-6) Pantoprazole Sodium 40 mg 06/12/22 16:30 06/19/22 09:33 Pantoprazole 40 Mg Tab PO 40 mg BIDAC DARRYL Administration Risperidone 4 mg 06/08/22 22:00 06/18/22 21:56 Risperidone 1 Mg Tab PO 4 mg QHS DARRYL Administration Sodium Chloride 10 ml 06/08/22 22:00 06/19/22 10:23 Sodium Chloride 0.9% 10 Ml Flush Syringe IV 10 ml BID DARRYL Administration Sodium Chloride 10 ml 06/08/22 17:35 06/10/22 01:27 Sodium Chloride 0.9% 10 Ml Flush Syringe IV 10 ml PRN PRN Administration LINE FLUSH Trazodone HCl 200 mg 06/08/22 22:00 06/18/22 21:57 Trazodone 100 Mg Tab PO 200 mg QHS DARRYL Administration Nutrition/Malnutrition Assess - Dietary Evaluation Nutrition/Malnutrition Findings: Nutrition Notes Start: 06/15/22 15:56 Freq: Status: Active Protocol: Document 06/15/22 15:57 MANDY (Rec: 06/15/22 16:14 MANDY [id number]) Nutrition Notes Need for Assessment generated from: LOS Initial or Follow up Assessment Current Diagnosis Acute Kidney Injury,Diabetes, Hypertension Other Pertinent Diagnosis L-SFA Occlussion, PVD, Metabolic Acidosis,... Current Diet Consistent Carbohydrates Diet (since L 06/12). Labs/Tests 06/15: Na 135, CO2 18, Glu 200 . Pertinent Medications 06/15: Humalog 4U, others nutritionally unremarkable. 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 Weight Status Appropriate Subjective/Other Information RD consult for LOS assessment. No reports available on Pt's PO intake of meals at the time , will assess at F/U. Pt is on Room Air, O2 saturation @ 98%, according to Physical Assessment History notes. Pt has missing teeth, according to Physical Assessment History notes. Pt is cleared medically for discharge, just PO/PT are still pending, Pt awaiting for placement, according to Progress notes. Percent of energy/protein needs met: Prescribed Consistent Carbohydrates Diet provides for energy/protein needs (2, 061 Kcal/91 g) during LOS. Burn Absent Trauma Absent GI Symptoms None Food Allergy No Skin Integrity/Comment L-LE surgical wound. 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 As Evidenced by Signs and Symptoms L-LE surgical wound. Is patient on ventilator? No Is Patient Ambulatory and/or Out of Bed No REE-([facility]-confined to bed) 1786.932 Kcal/Kg value to use for calculation 31 Approximate Energy Requirements Using 2249 kcal/Kg Calculation Used for Recommendations Kcal/kg Additional Notes Protein: 1.25-1.5 g/Kg ABW; 91 -110 g/day. Fluids: 1 ml/Kcal, or as per MD. Nutrition Intervention Change Diet Order: Continue Consistent Carbohydrates Diet. Goal #1 Adjust the dietary intervention to better serve Pt's needs and clinical conditions during LOS. Follow-Up By: 06/22/22 Additional Comments Continue monitoring food tolerance, %PO intake of meals , and BM.
[2022-06-19] MEDS: HYDROcodone/ACETAMINOPHEN 5-325 MG TAB PO PRN (15:07)
[2022-06-19] MEDS: GABAPENTIN 300 MG CAP PO SCH (17:52)
[2022-06-19] MEDS: traZODone 100 MG TAB PO SCH (22:09)
[2022-06-19] MEDS: risperiDONE 1 MG TAB PO SCH (22:09)
[2022-06-19] MEDS: DONEPEZIL 10 MG TAB PO SCH (22:10)
[2022-06-19] MEDS: INSULIN GLARGINE 100 UNITS/ML SUB-Q SCH (22:11)
[2022-06-20 06:04] LABS: Hematocrit 34.4 % (35.5-45.6); Hemoglobin 11.5 gm/dl (11.8-15.2)
[2022-06-20] MEDS: HYDROcodone/ACETAMINOPHEN 5-325 MG TAB PO PRN ×2 (06:16→10:18)
[2022-06-20] MEDS: hydrALAZINE 25 MG TAB PO SCH ×3 (06:17→21:34)
[2022-06-20] MEDS: APIXABAN 5 MG TAB PO SCH ×2 (10:16→21:34)
[2022-06-20] MEDS: amLODIPine 10 MG TAB PO SCH (10:19)
[2022-06-20] MEDS: CLOPIDOGREL 75 MG TAB PO SCH (10:20)
[2022-06-20] MEDS: DOCUSATE SODIUM 100 MG CAP PO SCH ×2 (10:21→21:34)
[2022-06-20] MEDS: CETIRIZINE 10 MG TAB PO SCH (10:21)
[2022-06-20] MEDS: INSULIN LISPRO 100 UNIT/ML SUB-Q SCH ×7 (10:22→21:34)
[2022-06-20] MEDS: PANTOPRAZOLE 40 MG TAB PO SCH ×2 (10:32→20:07)
--- NOTE | 2022-06-20 13:21 | Progress Note ---
Assessment and Plan Assessment and plan: This is a 77-year-old male with vascular dementia with behavior disturbance, cerebralatherosclerosis, schizophrenia, DM, HTN And PVD admitted with subacute SFA occlusion. #h/o vascular dementia with behavior disturbance #schizophrenia #cerebral atherosclerosis -Reorientation as needed -Maintain sleep-wake cycle -As needed analgesia -continue risperdal, trazadone, aricept, fluvoxamine maleatme #h/o chronic sinus bradycardia #intermittent junctional rhythm #Hypertension -Cardiology consulted, appreciate recommendations -Blood pressure monitoring per protocol -Antihypertension regimen: amlodipine, lisinopril -Per cardio: Avoid AV pham blocking agents. TSH and MG were within normal limits -No cardiac contraindications to proceeding with vascular intervention as planned. -Echocardiogram EF 65 to 70%. Borderline concentric LVH. -will need follow-up with Cardiology outpatient #Right upper lobe nodule -SpO2 monitoring per protocol -Noted on CTA, single incidental pulmonary nodule(s) in the right upper lobe measuring 5 mm with solid characteristics -Follow up outpatient for further evaluation #Acute kidney injury likely secondary to vasomotor nephropathy #Hyperchloremic metabolic acidosis-resolved -Monitor intake and output -Renally dose medications -s/p IVF -Avoid nephrotoxic medications -FeNa 6.45% indicating intrinsic -Trend BMP #h/o type 2 diabetes mellitus with hyperglycemia -SSI -Accu-Cheks q. 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 disease, two-vessel runoffs bilaterally -s/p successful placement of the thrombolytic catheter in the left lower extremity, removal of EKOs catheter 06/12 -s/p Heparin gtt-> transitioned to DOAC -Trend CBC -Transfuse hemoglobin less than 7 #Advanced care planning -Disease education conducted, care plan discussed, diagnoses discussed, prognosis discussed, and patient acknowledges understanding with care plan -Time: +30 min #Discharge planning -Patient accepted for [facility], awaiting available bed -Anticipate discharge in the next 48-72 hours History Interval history: No acute events overnight. Patient reports "not feeling good I need my urinal emptied". He has no complaints at this time. Hospitalist Physical - Physical exam Narrative exam: GENERAL: Well-developed well-nourished. In no acute distress. HEENT: Normocephalic. Atraumatic. NECK: Supple. CHEST/LUNGS: CTAB on room air HEART/CARDIOVASCULAR: RRR. No murmur, rubs or gallops appreciated. ABDOMEN: +BS. NT/ND. SKIN: No rashes noted. NEURO: No focal motor deficit. Follows all commands. MUSCULOSKELETAL: No joint effusion EXTREMITIES: No cyanosis, clubbing or edema. PSYCH: Cooperative. - Constitutional Vitals: Temp Pulse Resp BP Pulse Ox 97.9 F 69 16 114/58 98 06/20/22 12:09 06/20/22 12:09 06/20/22 12:09 06/20/22 12:09 06/20/22 12:09 General appearance: Present: no acute distress, well-nourished Results - Labs CBC & Chem 7: 06/20/22 05:40 06/15/22 04:44 Labs: Laboratory Last Values WBC 6.0 K/mm3 (4.5-11.0) 06/15/22 04:44 RBC 3.84 M/mm3 (3.65-5.03) 06/15/22 04:44 Hgb 11.5 gm/dl (11.8-15.2) L 06/20/22 05:40 Hct 34.4 % (35.5-45.6) L 06/20/22 05:40 MCV 92 fl (84-94) 06/15/22 04:44 MCH 30 pg (28-32) 06/15/22 04:44 MCHC 33 % (32-34) 06/15/22 04:44 RDW 14.8 % (13.2-15.2) 06/15/22 04:44 Plt Count 138 K/mm3 (140-440) L 06/15/22 04:44 Lymph % (Auto) 14.2 % (13.4-35.0) 06/12/22 09:35 Emanuel % (Auto) 9.1 % (0.0-7.3) H 06/12/22 09:35 Eos % (Auto) 0.1 % (0.0-4.3) 06/12/22 09:35 Baso % (Auto) 0.4 % (0.0-1.8) 06/12/22 09:35 Lymph # (Auto) 0.8 K/mm3 (1.2-5.4) L 06/12/22 09:35 Emanuel # (Auto) 0.5 K/mm3 (0.0-0.8) 06/12/22 09:35 Eos # (Auto) 0.0 K/mm3 (0.0-0.4) 06/12/22 09:35 Baso # (Auto) 0.0 K/mm3 (0.0-0.1) 06/12/22 09:35 Seg Neutrophils % 76.2 % (40.0-70.0) H 06/12/22 09:35 Seg Neutrophils # 4.2 K/mm3 (1.8-7.7) 06/12/22 09:35 PT 16.2 Sec. (12.2-14.9) H 06/12/22 11:02 INR 1.16 (0.87-1.13) H 06/12/22 11:02 APTT 188.7 Sec. (24.2-36.6) H* 06/12/22 11:02 Fibrinogen 313 mg/dl (211-480) 06/12/22 09:35 Heparin Anti-Xa Level 0.73 U.I./ml (0.3-0.7) H 06/13/22 05:49 Sodium 135 mmol/L (137-145) L 06/15/22 04:44 Potassium 4.3 mmol/L (3.6-5.0) 06/15/22 04:44 Chloride 105.8 mmol/L (98-107) 06/15/22 04:44 Carbon Dioxide 18 mmol/L (22-30) L 06/15/22 04:44 Anion Gap 16 mmol/L 06/15/22 04:44 BUN 17 mg/dL (9-20) 06/15/22 04:44 Creatinine 1.2 mg/dL (0.8-1.3) 06/15/22 04:44 Estimated GFR > 60 ml/min 06/15/22 04:44 BUN/Creatinine Ratio 14 % 06/15/22 04:44 Glucose 200 mg/dL (75-100) H 06/15/22 04:44 POC Glucose 363 mg/dL (70-105) H 06/20/22 11:36 Calcium 8.6 mg/dL (8.4-10.2) 06/15/22 04:44 Magnesium 2.20 mg/dL (1.7-2.3) 06/10/22 13:30 Total Bilirubin 0.40 mg/dL (0.1-1.2) 06/08/22 17:59 AST 17 units/L (5-40) 06/08/22 17:59 ALT 18 units/L (7-56) 06/08/22 17:59 Alkaline Phosphatase 77 units/L (35-129) 06/08/22 17:59 Total Protein 7.8 g/dL (6.3-8.2) 06/08/22 17:59 Albumin 4.5 g/dL (3.9-5) 06/08/22 17:59 Albumin/Globulin Ratio 1.4 % 06/08/22 17:59 TSH 3.030 mlU/mL (0.270-4.200) 06/10/22 13:30 Urine Creatinine 260.3 mg/dL (0.1-20.0) H 06/13/22 08:35 Urine Sodium 66 mmol/L 06/13/22 08:35 Urine Urea Nitrogen 1047 06/13/22 08:35 Blood Type O POSITIVE 06/11/22 16:54 Antibody Screen Negative 06/11/22 16:54 Khalil/IV: Voiding Method Urinal Active Medications - Current Medications Current Medications: Generic Name Dose Route Start Last Admin Trade Name Freq PRN Reason Stop Dose Admin Acetaminophen 650 mg 06/08/22 17:35 06/17/22 19:26 Acetaminophen 325 Mg Tab PO 650 mg Q6H PRN Administration Pain MILD(1-3)/Fever >100.5/PACHECO Hydrocodone Bitart/Acetaminophen 1 each 06/17/22 13:30 06/20/22 10:18 Hydrocodone/Acetaminophen 5-325 Mg Tab PO 1 each Q6H PRN Administration Pain, Moderate (4-6) Albuterol 2.5 mg 06/08/22 17:35 Albuterol 2.5 Mg/3 Ml Nebu IH Q3HRT PRN Shortness Of Breath Amlodipine Besylate 10 mg 06/12/22 10:00 06/20/22 10:19 Amlodipine 10 Mg Tab PO 10 mg QDAY DARRYL Administration Apixaban 5 mg 06/13/22 10:00 06/20/22 10:16 Apixaban 5 Mg Tab PO 5 mg Q12HR DARRYL Administration Protocol Cetirizine HCl 10 mg 06/09/22 10:00 06/20/22 10:21 Cetirizine 10 Mg Tab PO 10 mg DAILY DARRYL Administration Clopidogrel Bisulfate 75 mg 06/13/22 10:00 06/20/22 10:20 Clopidogrel 75 Mg Tab PO 75 mg QDAY DARRYL Administration Dextrose 50 ml 06/09/22 12:27 Dextrose 50% In Water (25gm) 50 Ml Syringe IV Q30MIN PRN Hypoglycemia Protocol Docusate Sodium 100 mg 06/11/22 22:00 06/20/22 10:21 Docusate Sodium 100 Mg Cap PO Not Given BID DARRYL Donepezil HCl 10 mg 06/08/22 22:00 06/19/22 22:10 Donepezil 10 Mg Tab PO 10 mg QHS DARRYL Administration Gabapentin 300 mg 06/17/22 18:00 06/19/22 17:52 Gabapentin 300 Mg Cap PO 300 mg QPM DARRYL Administration Hydralazine HCl 10 mg 06/11/22 10:05 06/14/22 04:11 Hydralazine 20 Mg/1 Ml Inj IV 10 mg Q4HR PRN Administration Hypertension Hydralazine HCl 25 mg 06/12/22 14:00 06/20/22 06:17 Hydralazine 25 Mg Tab PO 25 mg Q8HR DARRYL Administration Hydromorphone HCl 0.5 mg 06/17/22 13:30 06/18/22 19:33 Hydromorphone 0.5 Mg/0.5 Ml Inj IV 0.5 mg Q3H PRN Administration Pain , Severe (7-10) Insulin Human Lispro 0 unit 06/09/22 16:30 06/20/22 10:22 Insulin Lispro 100 Unit/Ml SUB-Q 6 unit ACHS DARRYL Administration Protocol Insulin Human Lispro 8 unit 06/11/22 11:30 06/20/22 10:23 Insulin Lispro 100 Unit/Ml SUB-Q 8 unit AC DARRYL Administration Ondansetron HCl 4 mg 06/11/22 14:10 Ondansetron 4 Mg/2 Ml Inj IV Q8H PRN Nausea And Vomiting Oxycodone/Acetaminophen 1 tab 06/08/22 17:35 06/15/22 09:27 Oxycodone /Acetaminophen 5-325mg Tab PO 1 tab Q6H PRN Administration Pain, Moderate (4-6) Pantoprazole Sodium 40 mg 06/12/22 16:30 06/20/22 10:32 Pantoprazole 40 Mg Tab PO 40 mg BIDAC DARRYL Administration Risperidone 4 mg 06/08/22 22:00 06/19/22 22:09 Risperidone 1 Mg Tab PO 4 mg QHS DARRYL Administration Sodium Chloride 10 ml 06/08/22 22:00 06/20/22 10:20 Sodium Chloride 0.9% 10 Ml Flush Syringe IV 10 ml BID DARRYL Administration Sodium Chloride 10 ml 06/08/22 17:35 06/10/22 01:27 Sodium Chloride 0.9% 10 Ml Flush Syringe IV 10 ml PRN PRN Administration LINE FLUSH Trazodone HCl 200 mg 06/08/22 22:00 06/19/22 22:09 Trazodone 100 Mg Tab PO 200 mg QHS DARRYL Administration Nutrition/Malnutrition Assess - Dietary Evaluation Nutrition/Malnutrition Findings: Nutrition Notes Start: 06/15/22 15:56 Freq: Status: Active Protocol: Document 06/15/22 15:57 MANDY (Rec: 06/15/22 16:14 MANDY [id number]) Nutrition Notes Need for Assessment generated from: LOS Initial or Follow up Assessment Current Diagnosis Acute Kidney Injury,Diabetes, Hypertension Other Pertinent Diagnosis L-SFA Occlussion, PVD, Metabolic Acidosis,... Current Diet Consistent Carbohydrates Diet (since L 06/12). Labs/Tests 06/15: Na 135, CO2 18, Glu 200 . Pertinent Medications 06/15: Humalog 4U, others nutritionally unremarkable. Height 6 ft Weight 72.56 kg [place] Body Weight (kg) 80.90 BMI 21.7 Intake Prior to Admission Good Weight change and time frame Pt denies having loss body weight [employer]. Weight Status Appropriate Subjective/Other Information RD consult for LOS assessment. No reports available on Pt's PO intake of meals at the time , will assess at F/U. Pt is on Room Air, O2 saturation @ 98%, according to Physical Assessment History notes. Pt has missing teeth, according to Physical Assessment History notes. Pt is cleared medically for discharge, just PO/PT are still pending, Pt awaiting for placement, according to Progress notes. Percent of energy/protein needs met: Prescribed Consistent Carbohydrates Diet provides for energy/protein needs (2, 061 Kcal/91 g) during LOS. Burn Absent Trauma Absent GI Symptoms None Food Allergy No Skin Integrity/Comment L-LE surgical wound. Minimum of two criteria No Fluid Accumulation N/A Reduced Case Management Director Strength N/A (non-severe) Protein-Calorie Malnutrition N\\A #1 Nutrition Diagnosis Increased nutrient needs ( specify in comment below) Etiology L-SFA Occlusion. As Evidenced by Signs and Symptoms L-LE surgical wound. Is patient on ventilator? No Is Patient Ambulatory and/or Out of Bed No REE-([facility]-confined to bed) 1786.932 Kcal/Kg value to use for calculation 31 Approximate Energy Requirements Using 2249 kcal/Kg Calculation Used for Recommendations Kcal/kg Additional Notes Protein: 1.25-1.5 g/Kg ABW; 91 -110 g/day. Fluids: 1 ml/Kcal, or as per MD. Nutrition Intervention Change Diet Order: Continue Consistent Carbohydrates Diet. Goal #1 Adjust the dietary intervention to better serve Pt's needs and clinical conditions during LOS. Follow-Up By: 06/22/22 Additional Comments Continue monitoring food tolerance, %PO intake of meals , and BM.
[2022-06-20] MEDS: GABAPENTIN 300 MG CAP PO SCH (20:07)
[2022-06-20] MEDS: traZODone 100 MG TAB PO SCH (21:33)
[2022-06-20] MEDS: risperiDONE 1 MG TAB PO SCH (21:33)
[2022-06-20] MEDS: DONEPEZIL 10 MG TAB PO SCH (21:34)
[2022-06-20] MEDS ORDERED: INSULIN GLARGINE 100 UNITS/ML SUB-Q SCH (22:00)
[2022-06-21] MEDS: HYDROcodone/ACETAMINOPHEN 5-325 MG TAB PO PRN ×2 (02:13→09:10)
[2022-06-21] MEDS: hydrALAZINE 25 MG TAB PO SCH ×3 (05:24→13:30)
--- NOTE | 2022-06-21 08:59 | Discharge Summary ---
Providers - Providers Date of Admission: 06/08/22 17:35 Date of discharge: 06/21/22 Attending physician: LILIA MATTSON MD 06/08/22 17:35 Consult to Physician [CONS] Routine Comment: Consulting Provider: FERNANDO SILVESTRE Physician Instructions: Reason For Exam: LLE Ischemia 06/09/22 10:05 Consult to Physician [CONS] Routine Comment: Consulting Provider: FRANCISCO JAVIER RANDALL Physician Instructions: Reason For Exam: Bradycardia, PVD with sub-acute occlusion 06/14/22 08:52 Occupational Therapy Evaluate and Treat [CONS] Routine Comment: Reason For Exam: Debility Physical Therapy Evaluation and Treat [CONS] Routine Comment: Reason For Exam: Debility Primary care physician: SUKHEDEP SALAS Hospitalization Reason for admission: Left lower extremity ischemia Condition: Stable Hospital course: The patient is a 76 YO Male with Vascular Dementia with Behavioral Disturbance, Cerebral Atherosclerosis, Schizophrenia, DM, HTN, PVD presents to ED for evaluation. Patient reports "my foot hurts". Patient states that he has experienced pain in his left foot as well as discoloration over the past 3 weeks with persistent and worsening symptoms over the same timeframe. Patient was seen and evaluated at his vascular surgeon's office and was found to have left lower extremity ischemia. Patient instructed to seek further care at [facility]. Patient transported via private vehicle to [facility] for further care and evaluation of the aforementioned symptoms. The patient was seen and evaluated in the emergency department. All lab and image studies reviewed. Patient found to have left lower extremity ischemia. Patient initiated on heparin drip. Vascular surgery team consulted. Patient admitted to [facility] due to increased risk of worsening symptoms and for medical stabilization. In the ED, the patient was found to be hemodynamically stable with vitals remarkable for a pulse of 48. Labs were also remarkable for potassium 5.1 and creatinine 1.6. Patient was evaluated with arterial Dopplers of his bilateral lower extremities that revealed SFA obstruction. Vascular surgery was consulted for further management and the patient underwent angiography of his left lower extremity with EKOS. The patient was transferred to the ICU for close monitoring shortly after EKOS, and he has since been transitioned to the floor. Patient was initiated on Eliquis 5 mg every 12 hours for anticoagulation. Patient was evaluated by physical therapy who recommended subacute rehab. Patient and his family refused subacute rehab, the patient will be discharging with home health and physical therapy. The patient is medically clear for discharge. Disposition: [facility] Final Discharge Diagnosis (Prints w/discharge instructions): Acute kidney injury secondary to vasomotor nephropathy. Subacute SVF occlusion. Hyperchloremic metabolic acidosis. Type 2 diabetes with hyperglycemia. Right upper lobe nodule. Chronic sinus bradycardia. Intermittent junctional rhythm. Hypertension. Vascular dementia with behavioral disturbance. Schizophrenia. Cerebral atherosclerosis Time spent for discharge: 40 minutes Core Measure Documentation - Palliative Care Palliative Care/ Comfort Measures: Not Applicable - Core Measures Any of the following diagnoses?: none Exam - Physical Exam Narrative exam: GENERAL: Well-developed well-nourished. In no acute distress. HEENT: Normocephalic. Atraumatic. NECK: Supple. CHEST/LUNGS: CTAB on room air HEART/CARDIOVASCULAR: RRR. No murmur, rubs or gallops appreciated. ABDOMEN: +BS. NT/ND. SKIN: No rashes noted. NEURO: No focal motor deficit. Follows all commands. MUSCULOSKELETAL: No joint effusion EXTREMITIES: No cyanosis, clubbing or edema. PSYCH: Cooperative. - Constitutional Vitals: Temp Pulse Resp BP Pulse Ox 98.7 F 51 L 18 146/57 99 06/21/22 07:41 06/21/22 07:41 06/21/22 07:41 06/21/22 07:41 06/21/22 07:57 Plan Care Plan Goals: Patient is medically clear for discharge. Assessment: The patient is a 76 YO Male with Vascular Dementia with Behavioral Disturbance, Cerebral Atherosclerosis, Schizophrenia, DM, HTN, PVD presents to ED for evaluation. Patient reports "my foot hurts". Patient states that he has experienced pain in his left foot as well as discoloration over the past 3 weeks with persistent and worsening symptoms over the same timeframe. Patient was seen and evaluated at his vascular surgeon's office and was found to have left lower extremity ischemia. Patient instructed to seek further care at [facility]. Patient transported via private vehicle to [facility] for further care and evaluation of the aforementioned symptoms. The patient was seen and evaluated in the emergency department. All lab and image studies reviewed. Patient found to have left lower extremity ischemia. Patient initiated on heparin drip. Vascular surgery team consulted. Patient admitted to [facility] due to increased risk of worsening symptoms and for medical stabilization. In the ED, the patient was found to be hemodynamically stable with vitals remarkable for a pulse of 48. Labs were also remarkable for potassium 5.1 and creatinine 1.6. Patient was evaluated with arterial Dopplers of his bilateral lower extremities that revealed SFA obstruction. Vascular surgery was consulted for further management and the patient underwent angiography of his left lower extremity with EKOS. The patient was transferred to the ICU for close monitoring shortly after EKOS, and he has since been transitioned to the floor. Patient was initiated on Eliquis 5 mg every 12 hours for anticoagulation. Patient was evaluated by physical therapy who recommended subacute rehab. Patient and his family refused subacute rehab, the patient will be discharging with home health and physical therapy. The patient is medically clear for discharge. Follow up with: SUKHDEEP SALAS MD [Primary Care Provider] - 7 Days Prescriptions: donepeziL [Aricept] 10 mg PO QHS #30 tab risperiDONE [RisperDAL] 4 mg PO QHS #30 tablet amLODIPine 10 mg PO QDAY #30 tablet Apixaban [Eliquis] 5 mg PO Q12HR #60 tablet Clopidogrel [Plavix] 75 mg PO QDAY #30 tablet Pantoprazole [Protonix TAB] 40 mg PO BIDAC #60 tablet
[2022-06-21] MEDS: INSULIN LISPRO 100 UNIT/ML SUB-Q SCH ×4 (09:10→12:37)
[2022-06-21] MEDS: CLOPIDOGREL 75 MG TAB PO SCH (09:10)
[2022-06-21] MEDS: APIXABAN 5 MG TAB PO SCH (09:11)
[2022-06-21] MEDS: PANTOPRAZOLE 40 MG TAB PO SCH (09:11)
[2022-06-21] MEDS: CETIRIZINE 10 MG TAB PO SCH (09:11)
[2022-06-21] MEDS: DOCUSATE SODIUM 100 MG CAP PO SCH (09:11)
[2022-06-21] MEDS: amLODIPine 10 MG TAB PO SCH (09:12)
[2022-06-21 11:54] VITALS: BP 144/66
== END 2022-06-21 13:38 | DRG 270 ==
LOC: ED 17:18 → IMCU 17:35 → CC1 06-11 15:25 → IMCU 06-13 17:31 → 4A 06-15 21:03
PROVIDERS: ADMIT Internal Medicine; ATTEND Student in an Organized Health Care Education/Training Program
PROC: 047L3ZZ Dilation of Left Femoral Artery, Percutaneous Approach (ICD-10-PCS; principal; 2022-06-11)
PROC: 047N3ZZ Dilation of Left Popliteal Artery, Percutaneous Approach (ICD-10-PCS; 2022-06-11)
PROC: 047U3ZZ Dilation of Left Peroneal Artery, Percutaneous Approach (ICD-10-PCS; 2022-06-11)
PROC: 3E03317 Introduction of Other Thrombolytic into Peripheral Vein, Percutaneous Approach (ICD-10-PCS; 2022-06-11)
PROC: B41D1ZZ Fluoroscopy of Aorta and Bilateral Lower Extremity Arteries using Low Osmolar Contrast (ICD-10-PCS; 2022-06-11)
PROC: 04HL33Z Insertion of Infusion Device into Left Femoral Artery, Percutaneous Approach (ICD-10-PCS; 2022-06-11)
PROC: 04CL3ZZ Extirpation of Matter from Left Femoral Artery, Percutaneous Approach (ICD-10-PCS; 2022-06-12)
PROC: 04CN3ZZ Extirpation of Matter from Left Popliteal Artery, Percutaneous Approach (ICD-10-PCS; 2022-06-12)
PROC: 047L3DZ Dilation of Left Femoral Artery with Intraluminal Device, Percutaneous Approach (ICD-10-PCS; 2022-06-12)
PROC: 047N3ZZ Dilation of Left Popliteal Artery, Percutaneous Approach (ICD-10-PCS; 2022-06-12)
PROC: 047U3ZZ Dilation of Left Peroneal Artery, Percutaneous Approach (ICD-10-PCS; 2022-06-12)
DX: E11.51 Type 2 diabetes mellitus with diabetic peripheral angiopathy without gangrene (principal); N17.0 Acute kidney failure with tubular necrosis; F01.51 Vascular dementia, unspecified severity, with behavioral disturbance; E87.2 Acidosis; Z20.822 Contact with and (suspected) exposure to COVID-19; I70.222 Atherosclerosis of native arteries of extremities with rest pain, left leg; F20.9 Schizophrenia, unspecified; R91.1 Solitary pulmonary nodule; Z79.899 Other long term (current) drug therapy; I10 Essential (primary) hypertension; Z87.891 Personal history of nicotine dependence; Z79.4 Long term (current) use of insulin; E87.5 Hyperkalemia; R00.1 Bradycardia, unspecified; I67.2 Cerebral atherosclerosis; E11.65 Type 2 diabetes mellitus with hyperglycemia; Z82.49 Family history of ischemic heart disease and other diseases of the circulatory system; Z88.0 Allergy status to penicillin
CPT/HCPCS: 36415; 37184; 37211; 37214; 37224; 37226; 37228; 75635; 75710; 76937; 80048; 80053; 82570; 82962; 83735; 84300; 84443; 84520; 85014; 85018; 85025; 85027; 85049; 85384; 85520; 85610; 85730; 86850; 86900; 86901; 93005; 93306; 94640; G0378; J3490; J7502; Q9967; C1725; C1757; C1760; C1769; C1874; C1887; C2623; C8929; J0360; J1170; J1644; J1815; J2250; J2997; J3010; J7030; J7040; J7120; U0003